=== PATIENT | male | born 1975 | race African-American/Black ===

== ENCOUNTER 2018-11-01 19:34 | Emergency (ER) | payer MEDICAID ==
--- NOTE | 2018-11-01 20:08 | ER Document Report ---
ED Medical Screen (RME) - General Chief Complaint: High Blood Sugar Stated Complaint: BLOOD SUGAR PROBLEM Time Seen by Provider: 11/01/18 20:02 Notes: 43-year-old male patient with lung cancer was recently put on Decadron 4 mg 3 times daily along with Augmentin. He has been on prednisone off and on for this past year. He is here today because his blood sugars are high. He states he was not told that the Decadron dosing would make his blood sugars go up. I have greeted and performed a rapid initial assessment of this patient. A comprehensive ED assessment and evaluation of the patient, analysis of test results and completion of the medical decision making process will be conducted by additional ED providers. TRAVEL OUTSIDE OF THE [place] IN LAST 30 DAYS: No - Related Data Allergies/Adverse Reactions: No Known Allergies Allergy (Verified 11/01/18 20:01) Past Medical History - Social History Frequency of alcohol use: None Drug Abuse: None - Past Medical History Cardiac Medical History: Reports: Hx Hypertension Endocrine Medical History: Reports: Hx Diabetes Mellitus Type 1, Hx Diabetes Mellitus Type 2 Renal/ Medical History: Denies: Hx Peritoneal Dialysis Past Surgical History: Reports: Hx Appendectomy, Hx Orthopedic Surgery - right ankle Physical Exam - Vital signs Vitals: Temp Pulse Resp BP Pulse Ox 98.3 F 88 16 140/92 H 97 11/01/18 19:49 11/01/18 19:49 11/01/18 19:49 11/01/18 19:49 11/01/18 19:49 Course - Vital Signs Vital signs: Temp Pulse Resp BP Pulse Ox 98.3 F 88 16 140/92 H 97 11/01/18 19:49 11/01/18 19:54 11/01/18 19:49 11/01/18 19:49 11/01/18 19:49
[2018-11-01 20:43] LABS: ABSOLUTE LYMPHOCYTES (AUTO) 0.6 10^3/uL (0.5-4.7); ABSOLUTE MONOCYTES (AUTO) 0.5 10^3/uL (0.1-1.4); ABSOLUTE NEUT (AUTO) 8.9 10^3/uL (1.7-8.2); BASOPHILS % (AUTO) 0.1 % (0-2); HEMATOCRIT 42.3 % (37.9-51.0); HEMOGLOBIN 14.6 g/dL (13.5-17.0); LYMPHOCYTES % (AUTO) 5.7 % (13-45); MEAN CORPUSCULAR HGB CONC 34.4 g/dL (32.0-36.0); MEAN CORPUSCULAR VOLUME 93 fl (80-97); PLATELET COUNT 432 10^3/uL (150-450); RED BLOOD COUNT 4.55 10^6/uL (4.35-5.55); RED CELL DISTRIBUTION WIDTH 14.1 % (11.5-14.0); SEGMENTED NEUTROPHILS % (AUTO) 89.2 % (42-78); TOTAL CELLS COUNTED % (AUTO) 100 %
[2018-11-01 20:47] LABS: APPEARANCE,URINE CLEAR; BILIRUBIN,URINE NEGATIVE (NEGATIVE); COLOR,URINE YELLOW; GLUCOSE, URINE >=500 mg/dL (NEGATIVE); KETONES,URINE TRACE mg/dL (NEGATIVE); LEUKOCYTE ESTERASE,URINE NEGATIVE (NEGATIVE); NITRITE,URINE NEGATIVE (NEGATIVE); PROTEIN,URINE NEGATIVE (NEGATIVE); URINE SPECIFIC GRAVITY 1.024; UROBILINOGEN,URINE NEGATIVE mg/dL (<2.0)
[2018-11-01 21:07] LABS: ALANINE AMINOTRANSFERASE < 6 U/L (21-72); ALBUMIN 4.6 g/dL (3.5-5.0); ALKALINE PHOSPHATASE 102 U/L (38-126); ANION GAP 12 (5-19); ASPARTATE AMINO TRANSFERASE 32 U/L (17-59); BILIRUBIN,DIRECT 0.5 mg/dL (0.0-0.4); BILIRUBIN,TOTAL 0.9 mg/dL (0.2-1.3); BLOOD UREA NITROGEN 25 mg/dL (7-20); CALCIUM 9.9 mg/dL (8.4-10.2); CARBON DIOXIDE 30 mmol/L (22-30); CHLORIDE 90 mmol/L (98-107); POTASSIUM 4.8 mmol/L (3.6-5.0); SODIUM 131.9 mmol/L (137-145); TOTAL PROTEIN 8.3 g/dL (6.3-8.2)
[2018-11-01 21:16] LABS: GLUCOSE 402 mg/dL (75-110)
[2018-11-01] MEDS ORDERED: INSULIN REG, HUMAN 100 UNIT/ML 3 ML VIAL (PYX) SUBCUT ONE (21:16)
[2018-11-01] MEDS ORDERED: NORMAL SALINE 1000 ML 1,000 ML IV ONE (21:16)
--- NOTE | 2018-11-01 23:47 | ER Document Report ---
ED Blood Sugar Problem - General Chief Complaint: High Blood Sugar Stated Complaint: BLOOD SUGAR PROBLEM Time Seen by Provider: 11/01/18 20:02 Notes: Patient is a 43-year-old male that comes to the emergency department for chief complaint of elevated blood sugar. He states that he checked at home, found it was over 300, became concerned and decided to come in and be evaluated. He denies dizziness, nausea, vomiting, abdominal pain, chest pain, fever, or any other complaints. He states that he is taking dexamethasone 4 mg 3 times a day, he has a diagnosis of lung cancer, he is on chemotherapy, he follows with Oncologist Dr. Batista. Patient does have a history of insulin-dependent diabetes. He states that he was seen about 2 days ago, had his Lantus increased from 15 units to 24 units daily. Patient states that he had initially had trouble with his appetite and this is why he was placed on the steroids. TRAVEL OUTSIDE OF THE [place] IN LAST 30 DAYS: No - Related Data Allergies/Adverse Reactions: No Known Allergies Allergy (Verified 11/01/18 20:01) Past Medical History - General Information source: Patient - Social History Smoking Status: Current Every Day Smoker Frequency of alcohol use: None Drug Abuse: None Lives with: Family Family History: Reviewed & Not Pertinent Patient has suicidal ideation: No Patient has homicidal ideation: No - Past Medical History Cardiac Medical History: Reports: Hx Hypertension Endocrine Medical History: Reports: Hx Diabetes Mellitus Type 2 Renal/ Medical History: Denies: Hx Peritoneal Dialysis Past Surgical History: Reports: Hx Appendectomy, Hx Orthopedic Surgery - right ankle - Immunizations Immunizations up to date: Yes Hx Diphtheria, Pertussis, Tetanus Vaccination: Yes Review of Systems - Review of Systems Constitutional: No symptoms reported EENT: No symptoms reported Cardiovascular: No symptoms reported Respiratory: No symptoms reported Gastrointestinal: No symptoms reported Genitourinary: No symptoms reported Male Genitourinary: No symptoms reported Musculoskeletal: No symptoms reported Skin: No symptoms reported Hematologic/Lymphatic: No symptoms reported Neurological/Psychological: No symptoms reported Physical Exam - Vital signs Vitals: Temp Pulse Resp BP Pulse Ox 98.3 F 88 16 140/92 H 97 11/01/18 19:49 11/01/18 19:49 11/01/18 19:49 11/01/18 19:49 11/01/18 19:49 - Notes Notes: GENERAL: Alert, interacts well. No acute distress. HEAD: Normocephalic, atraumatic. EYES: Pupils equal, round, and reactive to light. Extraocular movements intact. ENT: Oral mucosa dry, tongue midline. Oropharynx unremarkable. Airway patent. Nares patent, no nasal septal hematoma, TM's intact. NECK: Full range of motion. Supple. Trachea midline. LUNGS: Clear to auscultation bilaterally, no wheezes, rales, or rhonchi. No respiratory distress. HEART: Regular rate and rhythm. No murmur ABDOMEN: Soft, non-tender. Non-distended. Bowel sounds present in all 4 quadrants. GENITOURINARY: Deferred EXTREMITIES: Moves all 4 extremities spontaneously. No edema, normal radial and dorsalis pedis pulses bilaterally. No cyanosis. BACK: no cervical, thoracic, lumbar midline tenderness. No saddle anesthesia, normal distal neurovascular exam. NEUROLOGICAL: Alert and oriented x3. Normal speech. [cranial nerves II through XII grossly intact]. PSYCH: Normal affect, normal mood. SKIN: Warm, dry, normal turgor. No rashes or lesions noted. Course - Re-evaluation Re-evalutation: Patient's glucose is 400, bicarbonate unremarkable, anion gap unremarkable, mild hyponatremia, slightly elevated BUN, elevated specific gravity in the urine. Vital signs unremarkable. Remaining workup unremarkable. Patient treated with IV fluids, insulin. To this glucose significantly im proved. Discussed different options with patient. Patient states he is trying to avoid getting on a sliding scale, he states that he has an appointment on Saturday that he supposed to follow-up with, he states that he has decided he is going to stop taking the dexamethasone. He states that he was offered to stop taking the medication previously but now is having more trouble with his blood sugar. No additional recommendations at this time. Discussed expectations, follow-up, and return precautions. Patient states understanding and agreement. - Vital Signs Vital signs: Temp Pulse Resp BP Pulse Ox 98.3 F 88 17 128/85 H 96 11/01/18 19:49 11/01/18 19:54 11/02/18 00:01 11/02/18 00:01 11/02/18 00:01 - Laboratory Result Diagrams: 11/01/18 20:27 11/01/18 20:27 Laboratory results interpreted by me: 11/01/18 11/01/18 11/01/18 20:05 20:27 20:27 RDW 14.1 H Seg Neutrophils % 89.2 H Lymphocytes % 5.7 L Absolute Neutrophils 8.9 H Sodium 131.9 L Chloride 90 L BUN 25 H Glucose 402 H* POC Glucose 378 H Hemoglobin A1c % Direct Bilirubin 0.5 H ALT < 6 L Total Protein 8.3 H Urine Glucose (UA) Urine Ketones 11/01/18 11/01/18 11/01/18 20:27 20:27 23:07 RDW Seg Neutrophils % Lymphocytes % Absolute Neutrophils Sodium Chloride BUN Glucose POC Glucose 289 H Hemoglobin A1c % 10.0 H Direct Bilirubin ALT Total Protein Urine Glucose (UA) >=500 H Urine Ketones TRACE H 11/02/18 00:25 RDW Seg Neutrophils % Lymphocytes % Absolute Neutrophils Sodium Chloride BUN Glucose POC Glucose 262 H Hemoglobin A1c % Direct Bilirubin ALT Total Protein Urine Glucose (UA) Urine Ketones Discharge - Discharge Clinical Impression: Hyperglycemia, Dehydration Condition: Stable Disposition: HOME, SELF-CARE Additional Instructions: You have been treated for elevated blood sugars and dehydration today. No additional concerning findings were noted at this time. Your elevated blood sugars are probably related to the dexamethasone. Recommendation is to continue your new dose of 24 units of Lantus, avoid carbohydrates and sugary foods, and be seen on Saturday for close follow-up for additional management of your blood sugars and medications. Return if you worsen including vomiting, dizziness, fever, or any other co ncerning or worsening symptoms.
[2018-11-02 00:28] VITALS: BP 128/85
== END 2018-11-02 00:30 | disposition home or self-care (01) ==
LOC: ER 19:34
DX: E11.65 Type 2 diabetes mellitus with hyperglycemia (principal); Z79.4 Long term (current) use of insulin; E87.1 Hypo-osmolality and hyponatremia; E86.0 Dehydration; C34.90 Malignant neoplasm of unspecified part of unspecified bronchus or lung; Z79.899 Other long term (current) drug therapy; Z79.52 Long term (current) use of systemic steroids; I10 Essential (primary) hypertension; F17.200 Nicotine dependence, unspecified, uncomplicated
CPT/HCPCS: 99284; 36415; 82962; 83735; 85025; 80053; 81001; 83036; J1815; J7030

== ENCOUNTER 2019-04-19 15:57 | Inpatient (IN) | payer MEDICAID ==
[2019-04-19 16:20] LABS: HEMOGLOBIN 9.9 g/dL (13.5-17.0); MEAN CORPUSCULAR HEMOGLOBIN 32.1 pg (27.0-33.4); MEAN CORPUSCULAR HGB CONC 34.2 g/dL (32.0-36.0); MEAN CORPUSCULAR VOLUME 94 fl (80-97); PLATELET COUNT 580 10^3/uL (150-450); RED BLOOD COUNT 3.09 10^6/uL (4.35-5.55); RED CELL DISTRIBUTION WIDTH 18.5 % (11.5-14.0); WHITE BLOOD COUNT 8.8 10^3/uL (4.0-10.5)
[2019-04-19 16:25] LABS: INTERNATIONAL RATION (INR) 1.14; PROTHROMBIN TIME 14.7 SEC (11.4-15.4)
[2019-04-19] MEDS ORDERED: NORMAL SALINE 1000 ML 1,000 ML IV ONE ×2 (16:31→19:41)
[2019-04-19] MEDS ORDERED: ONDANSETRON HCL INJ/PF 4 MG/2 ML SDV IV ONE (16:36)
--- NOTE | 2019-04-19 16:36 | ER Document Report ---
ED General - General Chief Complaint: Nausea/Vomiting/Diarrhea Stated Complaint: NAUSEA Time Seen by Provider: 04/19/19 16:09 TRAVEL OUTSIDE OF THE [place] IN LAST 30 DAYS: No - HPI Notes: Patient is a 44-year-old male that presents to the emergency department for chief complaint of diarrhea. Patient reports diarrhea daily for the last 2 days. He reports associated crampy abdominal pain that is diffuse and intermittent. The abdominal pain seems relieved after having a bowel movement. He denies any black or bloody stools. He reports nausea with no vomiting. He is currently undergoing chemotherapy for metastatic lung cancer and reports his last treatment was 2 days ago. Patient denies known fevers, chills, diaphoresis. He does report hemoptysis that is streaky red mixed with mucus and not changed from his baseline hemoptysis. He denies increasing shortness of breath and cough. He is currently still smoking daily. Past Medical History: Metastatic lung cancer, diabetes, hypertension Past Surgical History: Posterior scalp tumor resection Social History: Daily tobacco. Denies drug and alcohol use Family History: Reviewed and noncontributory for presenting illness Allergies: Reviewed, see documented allergy list. REVIEW OF SYSTEMS: CONSTITUTIONAL : No fever No chills No diaphoresis No recent illness EENT: No vision changes No congestion No sore throat CARDIOVASCULAR: No chest pain No palpitations RESPIRATORY: No shortness of breath cough No difficulty breathing GASTROINTESTINAL: abdominal pain nausea No vomiting diarrhea GENITOURINARY: No dysuria No hematuria No difficulty urinating MUSCULOSKELETAL: No back pain No leg pain No arm pain SKIN: No rashes No lesions LYMPHATIC: No swollen, enlarged glands. NEUROLOGICAL: No lightheadedness No headache No weakness No paresthesias PSYCHIATRIC: No anxiety No depression PHYSICAL EXAMINATION: Vital signs reviewed, nursing noted reviewed. GENERAL: Well-appearing, well-nourished and in no acute distress. HEAD: Atraumatic, normocephalic. EYES: Eyes appear normal, extraocular movements intact, sclera anicteric, conjunctiva are normal. ENT: nares patent, oropharynx clear without exudates. Dry mucous membranes. NECK: Normal range of motion, supple without lymphadenopathy LUNGS: Breath sounds diminished to auscultation bilaterally and equal. No wheezes rales or rhonchi. Coarse cough HEART: Tachycardic rate and regular rhythm without murmurs ABDOMEN: Soft, nontender. No rebound, guarding, or rigidity. No masses appreciated. EXTREMITIES: Nontender, good range of motion, no pitting or edema. NEUROLOGICAL: No focal neurological deficits. Moves all extremities spontaneously Motor and sensory grossly intact on exam. PSYCH: Normal mood, normal affect. SKIN: Warm, Dry, normal turgor, no rashes or lesions noted on exposed skin - Related Data Allergies/Adverse Reactions: No Known Allergies Allergy (Verified 11/01/18 20:01) Past Medical History - Social History Smoking Status: Current Every Day Smoker Family History: Reviewed & Not Pertinent - Past Medical History Cardiac Medical History: Reports: Hx Hypertension Endocrine Medical History: Reports: Hx Diabetes Mellitus Type 1, Hx Diabetes Mellitus Type 2 Renal/ Medical History: Denies: Hx Peritoneal Dialysis Past Surgical History: Reports: Hx Appendectomy, Hx Orthopedic Surgery - right ankle - Immunizations Immunizations up to date: Yes Hx Diphtheria, Pertussis, Tetanus Vaccination: Yes Physical Exam - Vital signs Vitals: Pulse Ox 100 04/19/19 16:10 Course - Re-evaluation Re-evalutation: 04/19/19 16:35 Vitals reviewed. Nursing notes reviewed. Patient appears dehydrated and is tachycardic. His blood pressure is stable. He will be started on IV fluids and Zofran for symptomatic management. Patient placed on telemetry monitoring. 04/19/19 19:52 Patient's lab work shows hypokalemia which was replaced orally. He has extensive metastatic cancer on his CT imaging. Patient now tells me that he has been off his Xarelto for the last 4 or 5 days because he has been having hemoptysis. His hemoptysis is streaky and not massive. Patient has a new acute pulmonary embolism and reports no history of PE in the past to me. For this reason he will be started on heparin. The heparin will be able to be turned off if his hemoptysis increases. Patient also has pneumonia on CT scan and will be started on broad-spectrum antibiotics. Blood cultures have been obtained. His lactic acid is normal and blood pressure has remained stable. Patient's abdominal CT scan is consistent with enterocolitis as well as changes related to his cancer. Patient reports some improvement of symptoms on reevaluation. He will be admitted to the hospital for further care. His case was discussed with Dr. Pryor who accepts admission. Laboratory 07/04/19/19 04/19/19 15:35 15:35 15:35 WBC 8.8 RBC 3.09 L Hgb 9.9 L Hct 29.0 L MCV 94 MCH 32.1 MCHC 34.2 RDW 18.5 H Plt Count 580 H Total Counted 100 Seg Neutrophils % Not Reportable Seg Neuts % (Manual) 93 H Lymphocytes % Not Reportable Lymphocytes % (Manual) 6 L Monocytes % Not Reportable Monocytes % (Manual) 1 L Eosinophils % Not Reportable Eosinophils % (Manual) 0 Basophils % Not Reportable Basophils % (Manual) 0 Absolute Neutrophils Not Reportable Abs Neuts (Manual) 8.2 Absolute Lymphocytes Not Reportable Abs Lymphs (Manual) 0.5 Absolute Monocytes Not Reportable Abs Monocytes (Manual) 0.1 Absolute Eosinophils Not Reportable Absolute Eos (Manual) 0.0 Absolute Basophils Not Reportable Abs Basophils (Manual) 0.0 Platelet Comment INCREASED Poikilocytosis SLIGHT Anisocytosis 2+ Tear Drop Cells SLIGHT Ovalocytes SLIGHT PT 14.7 INR 1.14 VBG pH VBG pCO2 VBG HCO3 VBG Base Excess Sodium 135.0 L Potassium 2.8 L* Chloride 94 L Carbon Dioxide 25 Anion Gap 16 BUN 19 Creatinine 1.10 Est GFR ( Amer) > 60 Est GFR (Non-Af Amer) > 60 Glucose 168 H POC Glucose Lactic Acid Calcium 9.6 Total Bilirubin 0.8 Direct Bilirubin 0.4 Neonat Total Bilirubin Not Reportable Neonat Direct Bilirubin Not Reportable Neonat Indirect Bili Not Reportable AST 14 L ALT < 6 L Alkaline Phosphatase 112 Total Protein 7.3 Albumin 3.8 Lipase 214.2 04/19/19 04/19/19 04/19/19 16:27 16:27 16:35 WBC RBC Hgb Hct MCV MCH MCHC RDW Plt Count Total Counted Seg Neutrophils % Seg Neuts % (Manual) Lymphocytes % Lymphocytes % (Manual) Monocytes % Monocytes % (Manual) Eosinophils % Eosinophils % (Manual) Basophils % Basophils % (Manual) Absolute Neutrophils Abs Neuts (Manual) Absolute Lymphocytes Abs Lymphs (Manual) Absolute Monocytes Abs Monocytes (Manual) Absolute Eosinophils Absolute Eos (Manual) Absolute Basophils Abs Basophils (Manual) Platelet Comment Poikilocytosis Anisocytosis Tear Drop Cells Ovalocytes PT INR VBG pH 7.47 H VBG pCO2 34.7 L VBG HCO3 24.4 VBG Base Excess 1.3 Sodium Potassium Chloride Carbon Dioxide Anion Gap BUN Creatinine Est GFR ( Amer) Est GFR (Non-Af Amer) Glucose POC Glucose 165 H Lactic Acid 1.1 Calcium Total Bilirubin Direct Bilirubin Neonat Total Bilirubin Neonat Direct Bilirubin Neonat Indirect Bili AST ALT Alkaline Phosphatase Total Protein Albumin Lipase Chest X-Ray 04/19/19 16:10 IMPRESSION: Diffuse airspace opacity at the right lung with masslike consolidation at the right upper lobe and mediastinal shift to the right. Left lung nodules. Small right pleural effusion. CT thorax can help in further evaluation. Chest/Abdomen CTA 04/19/19 17:49 IMPRESSION: 1. Acute pulmonary embolus at the right main pulmonary artery. 2. Masslike consolidation at the right upper lobe extending into the right hilum and mediastinum, probably corresponding to patient's known malignancy. 3. Consolidation with air bronchograms at the right lower lobe, may be secondary to progression of malignancy versus pneumonia. 4. Nodular densities at the trachea and right mainstem bronchus, endobronchial lesions cannot be excluded. 5. Moderate right pleural effusion. 6. Multiple bilateral pulmonary nodules and mediastinal adenopathy, most consistent with metastatic disease. 7. Small pericardial effusion. 8. Diffuse chest wall edema. Bilateral gynecomastia. 9. Osseous metastatic lesion at the posterior aspect of T10 vertebral body. Contrast-enhanced MRI can help to evaluate for extension into the spinal canal. Abdomen/Pelvis CT 04/19/19 17:57 IMPRESSION: 1. Air-fluid levels throughout the small bowel, colon and at the rectum, may be seen with enterocolitis. 2. Mild colonic diverticulosis. 3. Osseous metastasis at T10 vertebral body. 4. 1.1 cm sclerotic lesion at the left acetabulum, indeterminate. - Vital Signs Vital signs: Temp Pulse Resp BP Pulse Ox 100.1 F 28 H 128/93 H 100 04/19/19 17:50 04/19/19 16:25 04/19/19 16:25 04/19/19 16:25 - Laboratory Result Diagrams: 04/19/19 15:35 04/19/19 15:35 Laboratory results interpreted by me: 04/19/19 04/19/19 04/19/19 15:35 15:35 16:27 RBC 3.09 L Hgb 9.9 L Hct 29.0 L RDW 18.5 H Plt Count 580 H Seg Neuts % (Manual) 93 H Lymphocytes % (Manual) 6 L Monocytes % (Manual) 1 L VBG pH 7.47 H VBG pCO2 34.7 L Sodium 135.0 L Potassium 2.8 L* Chloride 94 L Glucose 168 H POC Glucose AST 14 L ALT < 6 L 04/19/19 16:35 RBC Hgb Hct RDW Plt Count Seg Neuts % (Manual) Lymphocytes % (Manual) Monocytes % (Manual) VBG pH VBG pCO2 Sodium Potassium Chloride Glucose POC Glucose 165 H AST ALT - EKG Interpretation by Me Additional EKG results interpreted by me: 04/19/19 16:35 Interpreted by myself 1628: Sinus tachycardia, rate 129, normal axis, no ectopy, no STEMI Critical Care Note - Critical Care Note Total time excluding time spent on procedures (mins): 40 Comments: Critical care time 40 exclusive from separate billable procedures for a patient requiring complex medical decision making, and high potential for clinical deterioration. Time spent obtaining history from patient or surrogate, discussions with consultants, development of treatment plan with patient or surrogate, evaluation of patient's response to treatment, examination of patient, ordering and performing treatments and interventions, ordering and review of laboratory studies, re-evaluation of patient's condition, ordering and review of radiographic studies and review of old charts Discharge - Discharge Clinical Impression: Hypokalemia, Enterocolitis Pulmonary embolism Qualifiers: Pulmonary embolism type: other Chronicity: acute Acute cor pulmonale presence: without acute cor pulmonale Qualified Code(s): I26.99 - Other pulmonary embolism without acute cor pulmonale Pneumonia Qualifiers: Pneumonia type: due to unspecified organism Laterality: bilateral Lung location: unspecified part of lung Qualified Code(s): J18.9 - Pneumonia, unspecified organism Sepsis Qualifiers: Sepsis type: sepsis due to unspecified organism Qualified Code(s): A41.9 - Sepsis, unspecified organism Condition: Fair Disposition: ADMITTED INPATIENT Admitting Provider: Konstantin (Hospitalist) Unit Admitted: [facility]
[2019-04-19 16:37] LABS: ALANINE AMINOTRANSFERASE < 6 U/L (21-72); ALBUMIN 3.8 g/dL (3.5-5.0); ALKALINE PHOSPHATASE 112 U/L (38-126); ANION GAP 16 (5-19); ASPARTATE AMINO TRANSFERASE 14 U/L (17-59); BILIRUBIN,DIRECT 0.4 mg/dL (0.0-0.4); BILIRUBIN,TOTAL 0.8 mg/dL (0.2-1.3); BLOOD UREA NITROGEN 19 mg/dL (7-20); CALCIUM 9.6 mg/dL (8.4-10.2); CARBON DIOXIDE 25 mmol/L (22-30); CHLORIDE 94 mmol/L (98-107); GLUCOSE 168 mg/dL (75-110); TOTAL PROTEIN 7.3 g/dL (6.3-8.2)
[2019-04-19 16:39] LABS: POTASSIUM 2.8 mmol/L (3.6-5.0)
[2019-04-19 16:48] LABS: VENOUS BLOOD BASE EXCESS 1.3 mmol/L; VENOUS BLOOD HCO3 24.4 mmol/L (20-32); VENOUS BLOOD PCO2 34.7 mmHg (35-63); VENOUS BLOOD PH 7.47 (7.30-7.42)
[2019-04-19] MEDS ORDERED: POTASSIUM CHLORIDE 10 MEQ CAPSULE.ER PO ONE (16:53)
[2019-04-19 16:57] LABS: ABSOLUTE LYMPHOCYTES# (MANUAL) 0.5 10^3/uL (0.5-4.7); ABSOLUTE MONOCYTES # (MANUAL) 0.1 10^3/uL (0.1-1.4); ANISOCYTOSIS 2+; BASOPHILS % (MANUAL) 0 % (0-2); EOSINOPHILS % (MANUAL) 0 % (0-6); LYMPHOCYTES % (MANUAL) 6 % (13-45); MONOCYTES % (MANUAL) 1 % (3-13); OVALOCYTES SLIGHT; PLATELET COMMENT INCREASED; POIKILOCYTOSIS SLIGHT; SEGMENTED NEUTROPHILS % (MAN) 93 % (42-78); TEAR DROP CELLS SLIGHT; TOTAL CELLS COUNTED 100
[2019-04-19] MEDS ORDERED: POTASSIUM CHLORIDE 20 MEQ PACKET PO ONE (17:04)
--- NOTE | 2019-04-19 17:13 | RADIOLOGY REPORT (SQ) ---
EXAM DESCRIPTION: CHEST SINGLE VIEW COMPLETED DATE/TIME: 04/19/2019 4:37 pm REASON FOR STUDY: tachycardia, vomiting COMPARISON: None. EXAM PARAMETERS: NUMBER OF VIEWS: One view. TECHNIQUE: Single frontal radiographic view of the chest acquired. RADIATION DOSE: NA LIMITATIONS: None. FINDINGS: LUNGS AND PLEURA: There is diffuse airspace opacity at the right lung with masslike consol idation at the right upper lobe. There is a small right pleural effusion. Several nodules are noted at the left lung, the largest at the left midlung is measuring 2.4 cm. No pneumothorax. MEDIASTINUM AND HILAR STRUCTURES: There is mediastinal shift to the right. HEART AND VASCULAR STRUCTURES: The heart does not appear enlarged. No overt vascular congestion. BONES: No acute findings. HARDWARE: None in the chest. IMPRESSION: Diffuse airspace opacity at the right lung with masslike consolidation at the right uppe r lobe and mediastinal shift to the right. Left lung nodules. Small right pleural effusion. CT tho rax can help in further evaluation. TECHNICAL DOCUMENTATION: JOB ID: [id number] [id number] 2010 [employer]- All Rights Reserved Reading location - IP/workstation name: [email or web address]
[2019-04-19] MEDS ORDERED: DICYCLOMINE HCL INJ 20 MG/2 ML AMPULE IM ONE (17:54)
[2019-04-19] MEDS ORDERED: DICYCLOMINE HCL 20 MG TABLET PO ONE (17:56)
[2019-04-19] MEDS ORDERED: ACETAMINOPHEN 325 MG TABLET PO ONE (17:56)
--- NOTE | 2019-04-19 19:01 | EKG REPORT ---
SEVERITY:- OTHERWISE NORMAL ECG - SINUS TACHYCARDIA [Now Present] SIGNIFICANT RHYTHM CHANGES [Now Absent] ST ELEV, PROBABLE NORMAL EARLY REPOL PATTERN [Now Absent] SINUS RHYTHM : Confirmed by: Minna Doyle MD 19-Apr-2019 19:00:32
[2019-04-19] MEDS ORDERED: HEPARIN SOD (PORCINE) 1,000 UNIT/ML 10 ML VIAL IV ONE (19:07)
[2019-04-19] MEDS ORDERED: CEFTRIAXONE INJ 1000 MG VIAL IV ONE (19:07)
[2019-04-19] MEDS ORDERED: HEPARIN SODIUM,PORCINE/D5W 25,000 UNIT/250 ML RTUINJ IV PRN ×2 (19:07→21:14)
[2019-04-19] MEDS ORDERED: AZITHROMYCIN INJ 500 MG VIAL IV ONE ×2 (19:07→19:51)
--- NOTE | 2019-04-19 19:29 | RADIOLOGY REPORT (SQ) ---
EXAM DESCRIPTION: CTA CHEST COMPLETED DATE/TIME: 04/19/2019 6:27 pm REASON FOR STUDY: Abdominal pain, fever. Hemoptysis. History of metastatic lung cancer. COMPARISON: Chest x-ray 04/19/2019. TECHNIQUE: CT scan of the chest performed using helical scanning technique with dynamic intravenous contrast injection. Images reviewed with lung, soft tissue and bone windows. Reconstructed coronal and sagittal MPR images reviewed. Additional 3 dimensional post-processing performed to develop Maximal Intensity Projection images (CT P). All images stored on PACS. All CT scanners at this facility use dose modulation, iterative reconstruction, and/or weight based d osing when appropriate to reduce radiation dose to as low as reasonably achievable (ALARA). [facility]: Dose Right [facility]: CareDose [facility]: Dose Right [facility]: Teradose 4D [facility]: [employer] CONTRAST TYPE AND DOSE: contrast/concentration: Isovue 350.00 mg/ml; Total Contrast Delivered: 56.0 ml; Total Saline Delivered: 80.0 ml Contrast bolus optimized for the pulmonary arteries. Not diagnostic for the aorta. RENAL FUNCTION: Creatinine 1.10 RADIATION DOSE: . LIMITATIONS: None. FINDINGS: LUNGS AND PLEURA: There is a moderate right pleural effusion. There is a masslike consoli dation at the right upper lobe extending into the right hilar region and mediastinum. Consolidation with air bronchograms at the right lower lobe. Multiple bilateral pulmonary nodules are noted. A re presentative nodule at the left upper lobe is measuring 2.1 cm. Nodular densities are noted at the t rachea and right mainstem bronchus. AORTA AND GREAT VESSELS: No thoracic aortic aneurysm. HEART: Small pericardial effusion. PULMONARY ARTERIES: There is a filling defect at the right main pulmonary artery. HILAR AND MEDIASTINAL STRUCTURES: Subcarinal adenopathy measuring 2.3 cm in short axis. HARDWARE: None in the chest. UPPER ABDOMEN: See separate report of the CT of the abdomen. BONES: There is a lucent lesion with soft tissue density and cortical destruction along the left side of the posterior aspect of T10 vertebral body, most consistent with an osseous metastatic lesion. 3D MIPS: Confirm above findings. There is diffuse chest wall edema. There is bilateral gynecomastia. IMPRESSION: 1. Acute pulmonary embolus at the right main pulmonary artery. 2. Masslike consolidation at the right upper lobe extending into the right hilum and mediastinum, pro bably corresponding to patient's known malignancy. 3. Consolidation with air bronchograms at the right lower lobe, may be secondary to progression of ma lignancy versus pneumonia. 4. Nodular densities at the trachea and right mainstem bronchus, endobronchial lesions cannot be excl uded. 5. Moderate right pleural effusion. 6. Multiple bilateral pulmonary nodules and mediastinal adenopathy, most consistent with metastatic d isease. 7. Small pericardial effusion. 8. Diffuse chest wall edema. Bilateral gynecomastia. 9. Osseous metastatic lesion at the posterior aspect of T10 vertebral body. Contrast-enhanced MRI c an help to evaluate for extension into the spinal canal. COMMENT: Pertinent findings on the imaging study reported as a CRITICAL RESULT to DERICK Ocampo 9:10 hrs on 04/19/2019. Category of Critical Result: Acute pulmonary embolus. Quality ID # [id number]: Final reports with documentation of one or more dose reduction techniques (e.g., Au tomated exposure control, adjustment of the mA and/or kV according to patient size, use of iterative reconstruction technique) TECHNICAL DOCUMENTATION: JOB ID: [id number] [place]-[id number] 2010 [employer]- All Rights Reserved Reading location - IP/workstation name: [email or web address]
--- NOTE | 2019-04-19 19:40 | RADIOLOGY REPORT (SQ) ---
EXAM DESCRIPTION: CT ABD/PELVIS WITH IV ONLY COMPLETED DATE/TIME: 04/19/2019 6:28 pm REASON FOR STUDY: abdominal pain, fever . History of metastatic lung cancer. COMPARISON: CT angiogram chest 04/19/2019. TECHNIQUE: CT scan of the abdomen and pelvis performed using helical scanning technique with dynamic intravenous contrast injection. No oral contrast. Images reviewed with lung, soft tissue, and bone windows. Reconstructed coronal and sagittal MPR images reviewed. Delayed images for evaluation of the urinary system also acquired. All images stored on PACS. All CT scanners at this facility use dose modulation, iterative reconstruction, and/or weight based d osing when appropriate to reduce radiation dose to as low as reasonably achievable (ALARA). [facility]: Dose Right [facility]: CareDose [facility]: Dose Right [facility]: Teradose 4D [facility]: Atlas Apps CONTRAST TYPE AND DOSE: 56 mL Omnipaque 350- low osmolar. RENAL FUNCTION: Creatinine 1.10 RADIATION DOSE: CT Rad equipment meets quality standard of care and radiation dose reduction techniq ues were employed. CTDIvol: 3.3 - 16.5 mGy. DLP: 1820 mGy-cm.. LIMITATIONS: None. FINDINGS: LOWER CHEST: See separate report of the CT of the chest. LIVER: Normal size. No masses. No dilated ducts. SPLEEN: Normal size. No focal lesions. PANCREAS: No masses. No significant calcifications. No adjacent inflammation or peripancreatic fluid collections. Pancreatic duct not dilated. GALLBLADDER: Contracted. ADRENAL GLANDS: No significant masses or asymmetry. RIGHT KIDNEY AND URETER: No solid masses. No significant calcifications. No hydronephrosis or hyd roureter. LEFT KIDNEY AND URETER: No solid masses. No significant calcifications. No hydronephrosis or hydr oureter. AORTA AND VESSELS: IVC filter is noted. No abdominal aortic aneurysm. RETROPERITONEUM: No retroperitoneal adenopathy, hemorrhage or masses. BOWEL AND PERITONEAL CAVITY: The stomach is distended with an air-fluid level. Air-fluid levels are noted throughout the small bowel, colon and at the rectum. No free fluid or free air. Scattered col onic diverticula with no CT evidence for acute diverticulitis. APPENDIX: Not visualized. PELVIS: The urinary bladder is partially distended. No pelvic mass. No free fluid. ABDOMINAL WALL: There is a small fat containing umbilical hernia. BONES: There is a lucent lesion with adjacent soft tissue density and cortical destruction on the lef t side at the posterior aspect of T10 vertebral body, most consistent with osseous metastasis. There is a 1.1 cm sclerotic lesion at the left acetabulum. Mild multilevel degenerative changes are noted at the spine. IMPRESSION: 1. Air-fluid levels throughout the small bowel, colon and at the rectum, may be seen wit h enterocolitis. 2. Mild colonic diverticulosis. 3. Osseous metastasis at T10 vertebral body. 4. 1.1 cm sclerotic lesion at the left acetabulum, indeterminate. TECHNICAL DOCUMENTATION: JOB ID: [id number] SC-64 Quality ID # [id number]: Final reports with documentation of one or more dose reduction techniques (e.g., Au tomated exposure control, adjustment of the mA and/or kV according to patient size, use of iterative reconstruction technique) 2010 [employer]- All Rights Reserved Reading location - IP/workstation name: [email or web address]
[2019-04-19] MEDS ORDERED: VANCOMYCIN HCL INJ 1000 MG VIAL IV ONE (19:51)
[2019-04-19] MEDS ORDERED: PIPERACILLIN/TAZOBACTAM 3.375 GM VIAL IV ONE (19:51)
[2019-04-19 19:53] LABS: INTERNATIONAL RATION (INR) 1.17
[2019-04-19 19:54] LABS: PARTIAL THROMBOPLASTIN TIME 32.6 SEC (23.5-35.8)
[2019-04-19] MEDS ORDERED: NORMAL SALINE 1000 ML 1,000 ML IV PRN (19:56)
[2019-04-19] MEDS ORDERED: DEXTROSE 40% GEL 15 GM TUBE PO PRN ×2 (21:14)
[2019-04-19] MEDS ORDERED: DEXTROSE 50%-WATER 25 GM/50 ML DISP.SYRIN IV PRN ×2 (21:14)
[2019-04-19] MEDS ORDERED: GLUCAGON,HUMAN RECOMB 1 MG INJ IM PRN (21:14)
[2019-04-19] MEDS ORDERED: VANCOMYCIN HCL INJ 1000 MG VIAL IV SCH (21:15)
[2019-04-19] MEDS ORDERED: MORPHINE SULFATE 10 MG/ML INJ IV PRN ×4 (21:17→21:40)
[2019-04-19] MEDS ORDERED: NICOTINE 21 MG/24 HR PATCH.TD24 TD PRN (21:17)
[2019-04-19] MEDS ORDERED: MAG HYDROX/AL HYDROX/SIMETH SUSP 30 ML UDCUP PO PRN (21:17)
[2019-04-19] MEDS ORDERED: IBUPROFEN 800 MG TABLET PO PRN (21:17)
[2019-04-19] MEDS ORDERED: MAGNESIUM HYDROXIDE SUSP 30 ML UDCUP PO PRN (21:17)
[2019-04-19] MEDS ORDERED: ZOLPIDEM TARTRATE 5 MG TABLET PO PRN (21:25)
[2019-04-19] MEDS ORDERED: AZITHROMYCIN INJ 500 MG VIAL IV PRN (21:40)
[2019-04-19] MEDS ORDERED: AZITHROMYCIN 500 MG in DEXTROSE 5%-WATER 250 ML IV SCH (22:00)
[2019-04-19] MEDS ORDERED: HEPARIN SOD (PORCINE) 1,000 UNIT/ML 10 ML VIAL IV PRN (22:08)
[2019-04-19 22:27] LABS: FREE T3 2.54 pg/mL (2.77-5.27); FREE T4 (FREE THYROXINE) 1.65 ng/dL (0.78-2.19)
[2019-04-19] MEDS: POTASSI CL 20 MEQ/NS 1L 1,000 ML IV PRN (23:02)
--- NOTE | 2019-04-19 23:15 | PDOC H&P ---
History of Present Illness Admission Date/PCP: 04/19/19 20:02 No local PCP Patient complains of: Diarrhea History of Present Illness: WARREN MARIANO JR is a 44 year old male who presented to the emergency room with a 2-day history of diarrhea. He admits moderate to severe frequent watery d iarrhea for the last 2 days with associated intermittent diffuse moderate to severe abdominal cramping relieved in part by expelling a diarrhea stool. He admits further to the accompanying symptoms of nausea but denies other accompanying or associated symptoms. He further admits having lung cancer with known metastases. His last day of his most recent chemotherapy was 2 days ago. He admits prior similar episodes of diarrhea after prior rounds of chemotherapy, though not as severe as his present symptoms. His only further complaint is chronic mild streaky hemoptysis which has been present for months. He also relates that his oncologist discontinued his Xarelto 5 days ago, for unknown re asons. He denies identification of any additional aggravating or ameliorating factors for his diarrhea. In the emergency room he was found to have a normal white blood count, a normal lactic acid, a potassium of 2.8 and a mildly elevated temperature with an associated tachycardia. He was evaluated for his diarrhea with a CT of the abdomen and pelvis which was diagnostically consistent with acute enterocolitis. He also had a chest x-ray which showed a right upper lobe infiltrate which is most likely tumor and there was possible tumor or pneumonia in the right lower lung yanes. A CTA of the chest was obtained and showed a pulmonary embolus in his right pulmonary artery. Patient was subs equently admitted to the hospital for further evaluation and treatment. Past Medical History Cardiac Medical History: Reports: DVT, Hypertension Denies: Atrial Fibrillation, Coronary Artery Disease, Myocardial Infarction, Pulmonary Embolism Pulmonary Medical History: Reports: Bronchitis, Other - Metastatic pulmonary carcinoma Denies: Asthma, Chronic Obstructive Pulmonary Disease (COPD), Pneumonia, Respiratory Failure, Sleep Apnea EENT Medical History: Denies: Cataracts, Ears - Hearing aids Neurological Medical History: Denies: Hemorrhagic CVA, Ischemic CVA, Multiple Sclerosis, Seizures Endocrine Medical History: Reports: Diabetes Mellitus Type 2 Denies: Diabetes Mellitus Type 1, Hyperthyroidism, Hypothyroidism, Obesity Renal/ Medical History: Denies: Chronic Kidney Disease, Nephrolithiasis Malignancy Medical History: Reports: Lung Cancer GI Medical History: Denies: Cirrhosis, Crohn's Disease, Hepatitis, Ulcerative Colitis Musculoskeltal Medical History: Denies: Arthritis, Fibromyalgia, Gout Skin Medical History: Denies: Eczema, Psoriasis Psychiatric Medical History: Reports: Tobacco Dependency Denies: Alcohol Dependency, Substance Abuse Traumatic Medical History: Reports: None Hematology: Reports: Anemia - Chronic Denies: Bleeding Tendencies Infectious Medical History: Reports: None Past Surgical History Past Surgical History: Reports: Appendectomy, Orthopedic Surgery - right ankle, Other - Bronchoscopy and lung/tumor biopsies Social History Information Source: Patient Lives with: Spouse/Significant other, Friend Smoking Status: Current Every Day Smoker Frequency of Alcohol Use: None Hx Recreational Drug Use: No Drugs: None Hx Prescription Drug Abuse: No - Advance Directive Resuscitation Status: Full Code Surrogate healthcare decision maker:: Omid Ortiz Family History Family History: DM, Hypertension. denies: CAD, Malignancy Parental Family History Reviewed: Yes Children Family History Reviewed: No Sibling(s) Family History Reviewed.: Yes Medication/Allergy Home Medications: Sulfamethoxazole/Trimethoprim [Bactrim Ds Tablet] 2 each PO BID 7 Days tablet 11/15/14 Allergies/Adverse Reactions: No Known Allergies Allergy (Verified 11/01/18 20:01) Review of Systems Constitutional: ABSENT: chills, fever(s) Eyes: ABSENT: visual disturbances, other - Eye pain Ears: ABSENT: hearing changes, other - Ear pain Nose, Mouth, and Throat: ABSENT: mouth pain, sore throat Cardiovascular: ABSENT: chest pain, dyspnea on exertion, edema, orthropnea, palpitations Respiratory: PRESENT: as per HPI, cough, hemoptysis - Small amount of clear sputum with streaky hemoptysis present chronically, sputum. ABSENT: dyspnea Gastrointestinal: PRESENT: as per HPI, abdominal pain, diarrhea. ABSENT: constipation, dysphagia, hematemesis, hematochezia, melena, nausea, vomiting Genitourinary: ABSENT: dysuria, hematuria Musculoskeletal: ABSENT: back pain, joint swelling, muscle weakness Integumentary: ABSENT: pruritus, rash Neurological: ABSENT: confusion, convulsions, focal weakness, memory loss, syncope Psychiatric: ABSENT: anxiety, depression Endocrine: ABSENT: cold intolerance, heat intolerance Hematologic/Lymphatic: ABSENT: easy bleeding, easy bruising Physical Exam Vital Signs: Temp Pulse Resp BP Pulse Ox 100.1 F 28 H 128/93 H 100 04/19/19 17:50 04/19/19 16:25 04/19/19 16:25 04/19/19 16:25 Intake & Output 04/17/19 04/18/19 04/19/19 23:59 23:59 23:59 Intake Total 1000 Balance 1000 Weight 74.389 kg General appearance: PRESENT: no acute distress, cooperative Head exam: PRESENT: atraumatic, normocephalic Eye exam: PRESENT: conjunctiva pink. ABSENT: conjunctival injection, scleral icterus Ear exam: PRESENT: normal external ear exam. ABSENT: bleeding, drainage Mouth exam: PRESENT: dry mucosa, neck supple Neck exam: ABSENT: JVD, thyromegaly, tracheal deviation Respiratory exam: PRESENT: decreased breath sounds - Right upper lung yanes breath sounds essentially absent, rhonchi - Right lower lung yanes mild scattered rhonchi, symmetrical, unlabored. ABSENT: wheezes Cardiovascular exam: PRESENT: RRR. ABSENT: clicks, gallop, rubs Pulses: PRESENT: normal radial pulses, normal dorsalis pedis pul Vascular exam: ABSENT: normal capillary refill - Capillary refill delayed to greater than 3 seconds, pallor GI/Abdominal exam: PRESENT: hypoactive bowel sounds, soft, tenderness - Minimal generalized tenderness Rectal exam: PRESENT: deferred Extremities exam: ABSENT: joint swelling, pedal edema, tenderness Musculoskeletal exam: PRESENT: full ROM, normal inspection Neurological exam: PRESENT: alert, oriented to person, oriented to place, oriented to time, oriented to situation, CN II-XII grossly intact. ABSENT: motor sensory deficit Psychiatric exam: PRESENT: appropriate affect, normal mood Skin exam: PRESENT: dry, intact, warm, other - Decreased skin turgor noted.. ABSENT: jaundice, rash, urticaria Results Laboratory Results: 04/19/19 15:35 04/19/19 15:35 04/19/19 04/19/19 04/19/19 15:35 15:35 16:27 WBC 8.8 RBC 3.09 L Hgb 9.9 L Hct 29.0 L MCV 94 MCH 32.1 MCHC 34.2 RDW 18.5 H Plt Count 580 H Seg Neutrophils % Not Reportable Lymphocytes % Not Reportable Monocytes % Not Reportable Eosinophils % Not Reportable Basophils % Not Reportable Absolute Neutrophils Not Reportable Absolute Lymphocytes Not Reportable Absolute Monocytes Not Reportable Absolute Eosinophils Not Reportable Absolute Basophils Not Reportable VBG pH VBG pCO2 VBG HCO3 VBG Base Excess Sodium 135.0 L Potassium 2.8 L* Chloride 94 L Carbon Dioxide 25 Anion Gap 16 BUN 19 Creatinine 1.10 Est GFR ( Amer) > 60 Est GFR (Non-Af Amer) > 60 Glucose 168 H Lactic Acid 1.1 Calcium 9.6 Total Bilirubin 0.8 AST 14 L ALT < 6 L Alkaline Phosphatase 112 Total Protein 7.3 Albumin 3.8 Lipase 214.2 04/19/19 16:27 WBC RBC Hgb Hct MCV MCH MCHC RDW Plt Count Seg Neutrophils % Lymphocytes % Monocytes % Eosinophils % Basophils % Absolute Neutrophils Absolute Lymphocytes Absolute Monocytes Absolute Eosinophils Absolute Basophils VBG pH 7.47 H VBG pCO2 34.7 L VBG HCO3 24.4 VBG Base Excess 1.3 Sodium Potassium Chloride Carbon Dioxide Anion Gap BUN Creatinine Est GFR ( Amer) Est GFR (Non-Af Amer) Glucose Lactic Acid Calcium Total Bilirubin AST ALT Alkaline Phosphatase Total Protein Albumin Lipase Impressions: Chest X-Ray 04/19/19 16:10 IMPRESSION: Diffuse airspace opacity at the right lung with masslike consolidation at the right upper lobe and mediastinal shift to the right. Left lung nodules. Small right pleural effusion. CT thorax can help in further evaluation. Chest/Abdomen CTA 04/19/19 17:49 IMPRESSION: 1. Acute pulmonary embolus at the right main pulmonary artery. 2. Masslike consolidation at the right upper lobe extending into the right hilum and mediastinum, probably corresponding to patient's known malignancy. 3. Consolidation with air bronchograms at the right lower lobe, may be secondary to progression of malignancy versus pneumonia. 4. Nodular densities at the trachea and right mainstem bronchus, endobronchial lesions cannot be excluded. 5. Moderate right pleural effusion. 6. Multiple bilateral pulmonary nodules and mediastinal adenopathy, most consistent with metastatic disease. 7. Small pericardial effusion. 8. Diffuse chest wall edema. Bilateral gynecomastia. 9. Osseous metastatic lesion at the posterior aspect of T10 vertebral body. Contrast-enhanced MRI can help to evaluate for extension into the spinal canal. Abdomen/Pelvis CT 04/19/19 17:57 IMPRESSION: 1. Air-fluid levels throughout the small bowel, colon and at the rectum, may be seen with enterocolitis. 2. Mild colonic diverticulosis. 3. Osseous metastasis at T10 vertebral body. 4. 1.1 cm sclerotic lesion at the left acetabulum, indeterminate. Assessment and Plan - Diagnosis (1) Hypokalemia Is this a current diagnosis for this admission?: Yes Plan: Patient's potassium will be repleted with IV and oral potassium supplementation and frequent monitoring of his serum potassium level. He will be on a monitored unit during his hospital course. (2) Enterocolitis Is this a current diagnosis for this admission?: Yes Plan: Patient's enterocolitis to be treated symptomatically and the resultant dehydration will be treated with vigorous intravenous rehydration and electrolyte replacement. His metabolic profile will be monitored on a regular basis as well as a magnesium level. He will receive morphine sulfate 2 to 4 mg IV every 2 hours on a as needed basis for abdominal pain or cramping on a sliding scale basis. Stool cultures, C. difficile toxin and stool for white blood cells are pending. (3) Pulmonary embolism Qualifiers: Pulmonary embolism type: other Chronicity: unspecified Acute cor pulmonale presence: without acute cor pulmonale Qualified Code(s): I26.99 - Other pulmonary embolism without acute cor pulmonale Is this a current diagnosis for this admission?: Yes Plan: Patient was treated with a heparin protocol for pulmonary embolism. Further evaluation of his CTA and his chest x-ray will be undertaken with his primary oncologist and/or supervisor [employer] in [place] tomorrow when they may be reached at their offices. (4) Infiltrate of right lung present on chest x-ray Is this a current diagnosis for this admission?: Yes Plan: Patient will be treated for a possible pneumonia utilizing vancomycin, Zosyn and azithromycin administered intravenously due to his immunocompromised status having just received chemotherapy. Patient will also be started on a vigorous pulmonary toilet for treatment of pneumonia. Clarification of his x-ray and CTA findings may render this treatment and necessary however it is appropriate to initiate it at this time and obtain consultation with his oncologist and/or supervisor [employer] in [place] tomorrow. (5) Carcinoma of lung Qualifiers: Laterality: unspecified laterality Qualified Code(s): C34.90 - Malignant neoplasm of unspecified part of unspecified bronchus or lung Is this a current diagnosis for this admission?: Yes Plan: No acute care for this problem will be delivered to specifically however he will receive symptomatic and supportive care as required. (6) Elevated temperature Is this a current diagnosis for this admission?: Yes Plan: Patient's elevated temperature will be treated with Tylenol and/or ibuprofen for control. (7) Essential hypertension Is this a current diagnosis for this admission?: Yes Plan: Patient will be continued on his usual antihypertensive medications once his medication reconciliation has been completed. His blood pressure will be monitored closely throughout his hospital course. (8) Diabetes mellitus type 2 in nonobese Is this a current diagnosis for this admission?: Yes Plan: Patient will be treated with a diabetic diet and his usual diabetic medications when his medication reconciliation has been completed. In the interim he will have before meals and at bedtime Accu-Cheks obtained with sliding scale insulin coverage for hyperglycemia. A hypoglycemia protocol is also in place. Hemoglobin A1c will be obtained to evaluate his current diabetic therapy. (9) Tobacco use disorder, severe, dependence Is this a current diagnosis for this admission?: Yes Plan: Smoking cessation has been advised and counseled briefly. A nicotine replacement patch will be available for the patient's use. - Time Time Spent with patient: 25-34 minutes Smoking Cessation Education: 3 to 10 minutes Medications reviewed and adjusted accordingly: Yes - Inpatient Certification Based on my medical assessment, after consideration of the patient's comorbidities, presenting symptoms, or acuity I expect that the services needed warrant INPATIENT care.: Yes I certify that my determination is in accordance with my understanding of Medicare's requirements for reasonable and necessary INPATIENT services [42 CFR 412.3e].: Yes Medical Necessity: Significant Comorbidiites Make Outpatient Treatment Too Risky, Need Close Monitoring Due to Risk of Patient Decompensation, Need For IV Fluids, Need For Continuous Telemetry Monitoring, Need for Pain Control, Need for IV Antibiotics, Risk of Complication if Not Cared For in Hospital
--- NOTE | 2019-04-19 23:16 | ADVANCED CARE ---
- Diagnosis (1) Hypokalemia Diagnosis Current: Yes (2) Enterocolitis Diagnosis Current: Yes (3) Pulmonary embolism Diagnosis Current: Yes (4) Infiltrate of right lung present on chest x-ray Diagnosis Current: Yes (5) Carcinoma of lung Diagnosis Current: Yes (6) Elevated temperature Diagnosis Current: Yes (7) Essential hypertension Diagnosis Current: Yes (8) Diabetes mellitus type 2 in nonobese Diagnosis Current: Yes (9) Tobacco use disorder, severe, dependence Diagnosis Current: Yes Attendance: The patient and myself Resuscitation Status: Full Code Discussion: After brief discussion the patient is determined he wishes to remain full code resuscitation status for this admission. Further he has named Omid Ortiz as his designated surrogate medical decision-maker. Care Planning Goals: 1. Patient will be full CODE STATUS for this admission. 2. Omid Ortiz is the patient's designated surrogate medical decision maker. Document(s) Completed: Following entries were made to patient's permanent medical record including his current medical record and current orders via EMR entry: 1. Patient will be full CODE STATUS for this admission. 2. Omid Ortiz is the patient's designated surrogate medical decision maker. Time Spent: 3 minutes
[2019-04-20] MEDS ORDERED: PIPERACILLIN/TAZOBACTAM 3.375 GM VIAL IV PRN
[2019-04-20] MEDS: IPRATROPIUM BROMIDE 0.02% NEB 0.5 MG/2.5 ML AMPUL NEB SCH ×3 (00:30→16:22)
[2019-04-20] MEDS: LEVALBUTEROL HCL NEB 1.25 MG/3 ML AMPUL NEB SCH ×3 (00:30→16:22)
[2019-04-20] MEDS: PIPERACILLIN SODIUM/TAZOBACTAM 3.375 GM in NORMAL SALINE 100 ML IV SCH ×4 (01:38→18:06)
[2019-04-20] MEDS ORDERED: VANCOMYCIN HCL INJ 500 MG VIAL ONE (01:47)
[2019-04-20] MEDS ORDERED: INSULIN GLARGINE,HUM.REC.ANLOG 1,000 UNIT/10 ML VIAL (PYX) SUBCUT ONE (01:52)
[2019-04-20] MEDS ORDERED: INSULIN GLARGINE,HUM.REC.ANLOG 1,000 UNIT/10 ML VIAL (PYX) SUBCUT PRN (01:54)
[2019-04-20] MEDS ORDERED: INSULIN GLARGINE,HUM.REC.ANLOG 1,000 UNIT/10 ML VIAL SUBCUT ONE (02:00)
[2019-04-20] MEDS: INSULIN LISPRO 100 UNIT/ML 3 ML VIAL SUBCUT SCH ×5 (02:17→21:35)
[2019-04-20] MEDS: VANCOMYCIN HCL INJ 500 MG VIAL PO SCH ×2 (02:18→05:58)
[2019-04-20] MEDS: PANTOPRAZOLE SODIUM 40 MG VIAL IV SCH ×3 (02:18→21:36)
[2019-04-20 02:29] LABS: APPEARANCE,URINE CLEAR; BILIRUBIN,URINE NEGATIVE (NEGATIVE); COLOR,URINE YELLOW; GLUCOSE, URINE NEGATIVE (NEGATIVE); KETONES,URINE NEGATIVE (NEGATIVE); LEUKOCYTE ESTERASE,URINE NEGATIVE (NEGATIVE); NITRITE,URINE NEGATIVE (NEGATIVE); PROTEIN,URINE 30 mg/dL (NEGATIVE); URINE SPECIFIC GRAVITY 1.039; UROBILINOGEN,URINE NEGATIVE mg/dL (<2.0)
[2019-04-20] MEDS: MAGNESIUM SULFATE 1 GM/D5W 100 ML IV SCH ×2 (02:45→04:02)
[2019-04-20] MEDS: POTASSI CL 20 MEQ/NS 1L 1,000 ML IV PRN ×2 (04:03→09:35)
[2019-04-20] MEDS ORDERED: PIPERACILLIN/TAZOBACTAM 3.375 GM VIAL IV ONE (05:56)
[2019-04-20 05:58] LABS: HEMATOCRIT 24.5 % (37.9-51.0); HEMOGLOBIN 8.5 g/dL (13.5-17.0); MEAN CORPUSCULAR HEMOGLOBIN 32.6 pg (27.0-33.4); MEAN CORPUSCULAR HGB CONC 34.5 g/dL (32.0-36.0); MEAN CORPUSCULAR VOLUME 95 fl (80-97); PLATELET COUNT 467 10^3/uL (150-450); RED CELL DISTRIBUTION WIDTH 18.4 % (11.5-14.0); WHITE BLOOD COUNT 9.2 10^3/uL (4.0-10.5)
[2019-04-20 06:05] LABS: VENOUS BLOOD BASE EXCESS -3.8 mmol/L; VENOUS BLOOD HCO3 19.7 mmol/L (20-32); VENOUS BLOOD PCO2 29.5 mmHg (35-63); VENOUS BLOOD PH 7.44 (7.30-7.42)
[2019-04-20 06:28] LABS: ANION GAP 12 (5-19); BLOOD UREA NITROGEN 17 mg/dL (7-20); CALCIUM 8.7 mg/dL (8.4-10.2); CARBON DIOXIDE 21 mmol/L (22-30); CHLORIDE 105 mmol/L (98-107); CHOLESTEROL 117.04 mg/dL (0-200); GLUCOSE 148 mg/dL (75-110); TRIGLYCERIDES 92 mg/dL (<150)
[2019-04-20 06:36] LABS: POTASSIUM 2.6 mmol/L (3.6-5.0)
[2019-04-20 06:38] LABS: DIRECT LDL 66 mg/dL (<100)
[2019-04-20] MEDS ORDERED: POTASSIUM CHLORIDE 10 MEQ CAPSULE.ER PO ONE (07:00)
[2019-04-20] MEDS: POTASSIUM CHLORIDE 20 MEQ/50 ML RTU IV SCH ×2 (07:11→09:41)
[2019-04-20] MEDS ORDERED: HEPARIN SOD (PORCINE) 1,000 UNIT/ML 10 ML VIAL IV PRN (08:00)
[2019-04-20] MEDS ORDERED: VANCOMYCIN HCL 0 MG in DEXTROSE 5%-WATER 250 ML IV NR (08:30)
[2019-04-20] MEDS: ACETYLCYSTEINE 20% SOLN 800 MG/4 ML VIAL.NEB NEB SCH ×2 (08:54→20:21)
[2019-04-20] MEDS: BUDESONIDE NEB 0.5 MG/2 ML AMPUL NEB SCH ×2 (08:55→20:21)
[2019-04-20] MEDS: DOCUSATE SODIUM 100 MG CAPSULE PO SCH ×2 (09:29→18:00)
[2019-04-20] MEDS ORDERED: AZITHROMYCIN 500 MG in DEXTROSE 5%-WATER 250 ML IV SCH (10:00)
[2019-04-20] MEDS ORDERED: VANCOMYCIN HCL 750 MG in DEXTROSE 5%-WATER 250 ML IV SCH (10:00)
[2019-04-20] MEDS ORDERED: POTASSIUM CHLORIDE 10 MEQ CAPSULE.ER PO SCH (12:00)
[2019-04-20] MEDS: VANCOMYCIN HCL 750 MG in DEXTROSE 5%-WATER 250 ML IV SCH ×2 (15:35→23:12)
[2019-04-20 16:32] LABS: ANION GAP 12 (5-19); BLOOD UREA NITROGEN 13 mg/dL (7-20); CALCIUM 9.6 mg/dL (8.4-10.2); CARBON DIOXIDE 18 mmol/L (22-30); CHLORIDE 107 mmol/L (98-107); GLUCOSE 108 mg/dL (75-110)
[2019-04-20 16:34] LABS: POTASSIUM 2.7 mmol/L (3.6-5.0)
[2019-04-20] MEDS ORDERED: POTASSIUM CHLORIDE 20 MEQ PACKET PO ONE (17:48)
[2019-04-20] MEDS: HEPARIN SODIUM,PORCINE/D5W 25,000 UNIT/250 ML RTUINJ IV PRN (18:10)
[2019-04-20] MEDS: NORMAL SALINE 1000 ML 1,000 ML IV PRN (18:45)
[2019-04-20] MEDS: POTASSI CL 20 MEQ/50 ML RIDER 20 MEQ/50 ML RTUPB IV SCH ×2 (18:46→21:36)
[2019-04-20] MEDS: AZITHROMYCIN 500 MG in DEXTROSE 5%-WATER 250 ML IV SCH (18:53)
[2019-04-20] MEDS: MORPHINE SULFATE SR 30 MG TABLET PO SCH (21:34)
[2019-04-20] MEDS: CARVEDILOL 6.25 MG TABLET PO SCH (21:35)
[2019-04-20] MEDS: INSULIN GLARGINE,HUM.REC.ANLOG 1,000 UNIT/10 ML VIAL SUBCUT SCH (21:35)
--- NOTE | 2019-04-20 21:46 | Progress Note Acknowledgement ---
Progress Note Acknowledgement Progess Note Acknowledgement: I, the undersigned member of the medical staff with appropriate privileges and with supervisory authority over Barbara Hernandez, a [facility] practice allied health professional, acknowledge that I have reviewed the progress notes entered on this patient, and in my professional judgment believe that the assessment made and/or any care evidenced was appropriate
[2019-04-20] MEDS: OXYCODONE HCL IR 5 MG TABLET PO PRN (21:52)
[2019-04-20] MEDS ORDERED: (PENDING PHARMACY ID) (Morphine Sulfate [Morphine Sulfate Er] 30 MG) PO SCH (22:00)
--- NOTE | 2019-04-20 22:07 | PDOC PROGRESS REPORT ---
Subjective Progress Note for:: 04/20/19 Subjective:: The patient is a 44-year-old male, poor historian, but known to have a history of hypertension, DVT, metastatic lung cancer, DM type II, and tobacco dependency who was admitted 04/19/2019 for hypokalemia secondary to enterocolitis. Patient was seen on morning rounds. He was found resting in bed comfortably on room air. He does continue to report frequent bowel movement; several per hour. He does deny abdominal discomfort, nausea, and vomiting. He has been able to tolerate p.o. intake this morning. Otherwise he reports generalized weakness but has no other complaints. He denies fever, chills, chest pain, palpitations, dyspnea, orthopnea. He is unable to provide any further details into his recent chest imaging, lung cancer treatment, use or discontinuation of Xarelto therapy. He is unaware of any previous pulmonary embolus. Unfortunately, he is also unable to provide the name of his oncologist or the clinic to state that it is located in [place]. He has no other questions or concerns today. No specific concerns per nursing. Reason For Visit: HYPOKALEMIA,ACUTE ENTERITIS,PNEUMONIA Physical Exam Vital Signs: Temp Pulse Resp BP Pulse Ox 98.5 F 125 H 18 137/77 H 99 04/20/19 04:31 04/20/19 20:21 04/20/19 20:21 04/20/19 04:31 04/20/19 20:21 Intake & Output 04/19/19 04/20/19 04/21/19 06:59 06:59 06:59 Intake Total 3289 2711 Balance 3289 2711 Weight 66.4 kg General appearance: PRESENT: no acute distress, disheveled, thin, well-developed Head exam: PRESENT: atraumatic, normocephalic Eye exam: PRESENT: conjunctiva pink, EOMI, PERRLA. ABSENT: scleral icterus Mouth exam: PRESENT: moist, tongue midline Neck exam: ABSENT: carotid bruit, JVD, lymphadenopathy, thyromegaly Respiratory exam: PRESENT: clear to auscultation emily, symmetrical, tachypnea, unlabored. ABSENT: rales, rhonchi, wheezes Cardiovascular exam: PRESENT: RRR, +S1, +S2, tachycardia. ABSENT: diastolic murmur, rubs, systolic murmur Pulses: PRESENT: normal dorsalis pedis pul Vascular exam: PRESENT: normal capillary refill GI/Abdominal exam: PRESENT: normal bowel sounds, soft. ABSENT: distended, guarding, mass, organolmegaly, rebound, tenderness Rectal exam: PRESENT: deferred Extremities exam: PRESENT: full ROM. ABSENT: calf tenderness, clubbing, pedal edema Neurological exam: PRESENT: alert, awake, oriented to person, oriented to place, oriented to time, oriented to situation, CN II-XII grossly intact. ABSENT: motor sensory deficit Psychiatric exam: PRESENT: flat affect, normal mood. ABSENT: homicidal ideation, suicidal ideation Skin exam: PRESENT: dry, intact, warm. ABSENT: cyanosis, rash Results Laboratory Results: 04/20/19 05:48 04/20/19 15:52 04/19/19 04/19/19 04/20/19 15:35 19:20 01:15 WBC RBC Hgb Hct MCV MCH MCHC RDW Plt Count VBG pH VBG pCO2 VBG HCO3 VBG Base Excess Sodium Potassium Chloride Carbon Dioxide Anion Gap BUN Creatinine Est GFR ( Amer) Est GFR (Non-Af Amer) Glucose Lactic Acid Calcium Magnesium 1.2 L* Triglycerides Cholesterol LDL Cholesterol Direct VLDL Cholesterol HDL Cholesterol TSH Free T4 1.65 Free T3 pg/mL 2.54 L Urine Color Urine Appearance Urine pH Ur Specific [place] Urine Protein Urine Glucose (UA) Urine Ketones Urine Blood Urine Nitrite Ur Leukocyte Esterase Urine WBC (Auto) Urine RBC (Auto) Stool Occult Blood Stool for White Cells NO WBCs SEEN 04/20/19 04/20/19 04/20/19 01:15 01:15 01:31 WBC RBC Hgb Hct MCV MCH MCHC RDW Plt Count VBG pH VBG pCO2 VBG HCO3 VBG Base Excess Sodium Potassium Chloride Carbon Dioxide Anion Gap BUN Creatinine Est GFR ( Amer) Est GFR (Non-Af Amer) Glucose Lactic Acid 1.8 Calcium Magnesium Triglycerides Cholesterol LDL Cholesterol Direct VLDL Cholesterol HDL Cholesterol TSH Free T4 Free T3 pg/mL Urine Color YELLOW Urine Appearance CLEAR Urine pH 6.0 Ur Specific [place] 1.039 Urine Protein 30 H Urine Glucose (UA) NEGATIVE Urine Ketones NEGATIVE Urine Blood NEGATIVE Urine Nitrite NEGATIVE Ur Leukocyte Esterase NEGATIVE Urine WBC (Auto) 2 Urine RBC (Auto) 3 Stool Occult Blood NEGATIVE Stool for White Cells 04/20/19 04/20/19 04/20/19 05:48 05:48 05:48 WBC RBC Hgb Hct MCV MCH MCHC RDW Plt Count VBG pH VBG pCO2 VBG HCO3 VBG Base Excess Sodium 137.6 Potassium 2.6 L* Chloride 105 Carbon Dioxide 21 L Anion Gap 12 BUN 17 Creatinine 0.90 Est GFR ( Amer) > 60 Est GFR (Non-Af Amer) > 60 Glucose 148 H Lactic Acid 1.2 Calcium 8.7 Magnesium 2.0 Triglycerides 92 Cholesterol 117.04 LDL Cholesterol Direct 66 VLDL Cholesterol 18.0 HDL Cholesterol 30 L TSH 2.24 Free T4 Free T3 pg/mL Urine Color Urine Appearance Urine pH Ur Specific [place] Urine Protein Urine Glucose (UA) Urine Ketones Urine Blood Urine Nitrite Ur Leukocyte Esterase Urine WBC (Auto) Urine RBC (Auto) Stool Occult Blood Stool for White Cells 04/20/19 04/20/19 04/20/19 05:48 05:48 15:52 WBC 9.2 RBC 2.60 L Hgb 8.5 L Hct 24.5 L MCV 95 MCH 32.6 MCHC 34.5 RDW 18.4 H Plt Count 467 H VBG pH 7.44 H VBG pCO2 29.5 L VBG HCO3 19.7 L VBG Base Excess -3.8 Sodium 136.8 L Potassium 2.7 L* Chloride 107 Carbon Dioxide 18 L Anion Gap 12 BUN 13 Creatinine 1.00 Est GFR ( Amer) > 60 Est GFR (Non-Af Amer) > 60 Glucose 108 Lactic Acid Calcium 9.6 Magnesium Triglycerides Cholesterol LDL Cholesterol Direct VLDL Cholesterol HDL Cholesterol TSH Free T4 Free T3 pg/mL Urine Color Urine Appearance Urine pH Ur Specific [place] Urine Protein Urine Glucose (UA) Urine Ketones Urine Blood Urine Nitrite Ur Leukocyte Esterase Urine WBC (Auto) Urine RBC (Auto) Stool Occult Blood Stool for White Cells Impressions: Chest X-Ray 04/19/19 16:10 IMPRESSION: Diffuse airspace opacity at the right lung with masslike consolid ation at the right upper lobe and mediastinal shift to the right. Left lung nodules. Small right pleural effusion. CT thorax can help in further evaluation. Chest/Abdomen CTA 04/19/19 17:49 IMPRESSION: 1. Acute pulmonary embolus at the right main pulmonary artery. 2. Masslike consolidation at the right upper lobe extending into the right hilum and mediastinum, probably corresponding to patient's known malignancy. 3. Consolidation with air bronchograms at the right lower lobe, may be secondary to progression of malignancy versus pneumonia. 4. Nodular densities at the trachea and right mainstem bronchus, endobronchial lesions cannot be excluded. 5. Moderate right pleural effusion. 6. Multiple bilateral pulmonary nodules and mediastinal adenopathy, most consi stent with metastatic disease. 7. Small pericardial effusion. 8. Diffuse chest wall edema. Bilateral gynecomastia. 9. Osseous metastatic lesion at the posterior aspect of T10 vertebral body. Contrast-enhanced MRI can help to evaluate for extension into the spinal canal. Abdomen/Pelvis CT 04/19/19 17:57 IMPRESSION: 1. Air-fluid levels throughout the small bowel, colon and at the rectum, may be seen with enterocolitis. 2. Mild colonic diverticulosis. 3. Osseous metastasis at T10 vertebral body. 4. 1.1 cm sclerotic lesion at the left acetabulum, indeterminate. Assessment and Plan - Diagnosis (1) Hypokalemia Is this a current diagnosis for this admission?: Yes Plan: Secondary to poor p.o. intake and GI losses; frequent diarrhea related to recent chemotherapy treatment. Magnesium was low at 1.2; this is been replaced. Patient is receiving a combination of IV and p.o. potassium. We will continue to monitor serial chemistries and replace as indicated. (2) Enterocolitis Is this a current diagnosis for this admission?: Yes Plan: Likely secondary to chemotherapy treatment. C. difficile PCR is negative. Hemoccult is negative. Stool is negative for WBCs. Stool culture is pending. Continue IV fluids and supportive care. (3) Carcinoma of lung Qualifiers: Laterality: unspecified laterality Qualified Code(s): C34.90 - Malignant neoplasm of unspecified part of unspecified bronchus or lung Is this a current diagnosis for this admission?: Yes Plan: No acute care for this problem; symptomatic and supportive care. Continue the patient's outpatient pain medication regiment. Have requested any recent oncology progress note, discharge summaries, chest x- ray and/or CT imaging from [facility] to assist with determining if the findings on our imaging studies are present for acute or chronic changes related to his lung cancer. (4) Diabetes mellitus type 2 in nonobese Is this a current diagnosis for this admission?: Yes Plan: A1c is 6.5%. He is placed on a consistent carb/cardiac diet. Have resumed his home medication regiment of Lantus 8 units twice daily, Humalog 7 units with meals, and sliding scale coverage. Hypoglycemia protocol is in place. (5) Essential hypertension Is this a current diagnosis for this admission?: Yes Plan: Patient endorses a history of hypertension. Blood pressures have been somewhat elevated but overall acceptable today. Consistent carb/cardiac diet. Continue home dose carvedilol. (6) Infiltrate of right lung present on chest x-ray Is this a current diagnosis for this admission?: Yes Plan: On admission the patient had a low-grade temperature of 100.1. He has had tachypnea, no overall improved (28->18), but does remain tachycardic with a heart rate of 110-125. Chest x-ray and CTA of the chest concerning for consolidation with air bronchograms at the right lower lobe; possible secondary to progression of his malignancy versus pneumonia. Patient does have a normal WBC and acceptable ANC. Blood cultures are negative at 24 hours. Sputum cultures are pending. The patient has empirically been placed on IV azithromycin, vancomycin, and Zosyn for treatment of healthcare associated pneumonia in an immunocompromised patient. I have requested any recent imaging, oncology progress note, and discharge summaries from [facility] comparison. It is unclear whether or not these findings represent an acute pneumonia versus subacute/chronic changes related to his malignancy. Low threshold for hematology/oncology and pulmonology consultations this admission. Supplemental oxygen as needed to maintain saturations greater than 90%. Scheduled and as needed nebulizer treatments. Pulmicort nebs twice daily. Mucomyst nebs twice daily. Tylenol as needed for fever. Incentive spirometer and flutter valve to bedside. (7) Pulmonary embolism Qualifiers: Pulmonary embolism type: other Chronicity: unspecified Acute cor pulmonale presence: without acute cor pulmonale Qualified Code(s): I26.99 - Other pulmonary embolism without acute cor pulmonale Is this a current diagnosis for this admission?: Yes Plan: Patient has been placed on a heparin protocol for pulmonary embolism. It appears that the patient takes Xarelto 20 mg daily; he is unable to say why he is on this medication and whether or not this is a current or old medication. Continue to provide supplemental oxygen as needed to maintain saturations. Have requested imaging, progress notes, and discharge summary from [facility] for comparison. (8) Tobacco use disorder, severe, dependence Is this a current diagnosis for this admission?: Yes Plan: Smoking cessation has been advised. A nicotine replacement patch will be available for the patient's use. - Time Time Spent with patient: 25-34 minutes Medications reviewed and adjusted accordingly: Yes
[2019-04-21] MEDS: IPRATROPIUM BROMIDE 0.02% NEB 0.5 MG/2.5 ML AMPUL NEB SCH ×3 (00:14→16:16)
[2019-04-21] MEDS: LEVALBUTEROL HCL NEB 1.25 MG/3 ML AMPUL NEB SCH ×3 (00:14→16:16)
[2019-04-21] MEDS: PIPERACILLIN SODIUM/TAZOBACTAM 3.375 GM in NORMAL SALINE 100 ML IV SCH ×4 (01:12→18:42)
[2019-04-21] MEDS: NORMAL SALINE 1000 ML 1,000 ML IV PRN ×3 (03:48→18:38)
[2019-04-21 06:47] LABS: HEMATOCRIT 21.3 % (37.9-51.0); MEAN CORPUSCULAR HEMOGLOBIN 32.8 pg (27.0-33.4); MEAN CORPUSCULAR HGB CONC 34.6 g/dL (32.0-36.0); MEAN CORPUSCULAR VOLUME 95 fl (80-97); PLATELET COUNT 424 10^3/uL (150-450); RED BLOOD COUNT 2.24 10^6/uL (4.35-5.55); RED CELL DISTRIBUTION WIDTH 17.8 % (11.5-14.0); WHITE BLOOD COUNT 6.3 10^3/uL (4.0-10.5)
[2019-04-21 06:57] LABS: HEMOGLOBIN 7.3 g/dL (13.5-17.0)
[2019-04-21 07:18] LABS: ANION GAP 12 (5-19); BLOOD UREA NITROGEN 9 mg/dL (7-20); CALCIUM 10.1 mg/dL (8.4-10.2); CARBON DIOXIDE 17 mmol/L (22-30); CHLORIDE 107 mmol/L (98-107); GLUCOSE 130 mg/dL (75-110)
[2019-04-21 07:27] LABS: POTASSIUM 2.9 mmol/L (3.6-5.0)
[2019-04-21] MEDS ORDERED: NORMAL SALINE 250 ML IV PRN ×2 (07:55)
[2019-04-21] MEDS ORDERED: INSULIN GLARGINE,HUM.REC.ANLOG 1,000 UNIT/10 ML VIAL SUBCUT SCH (08:00)
[2019-04-21] MEDS: INSULIN LISPRO 100 UNIT/ML 3 ML VIAL SUBCUT SCH ×7 (09:01→21:41)
[2019-04-21] MEDS: DOCUSATE SODIUM 100 MG CAPSULE PO SCH ×2 (09:03→18:33)
[2019-04-21] MEDS: BUDESONIDE NEB 0.5 MG/2 ML AMPUL NEB SCH ×2 (09:06→19:56)
[2019-04-21] MEDS: ACETYLCYSTEINE 20% SOLN 800 MG/4 ML VIAL.NEB NEB SCH ×2 (09:07→19:56)
[2019-04-21] MEDS: VANCOMYCIN HCL 750 MG in DEXTROSE 5%-WATER 250 ML IV SCH ×3 (09:19→23:00)
[2019-04-21] MEDS: MAGNESIUM SULFATE/D5W 1 GM/100 ML RTUPB IV SCH ×2 (09:24→11:16)
[2019-04-21] MEDS: PANTOPRAZOLE SODIUM 40 MG VIAL IV SCH ×2 (09:26→21:41)
[2019-04-21] MEDS: CARVEDILOL 6.25 MG TABLET PO SCH ×2 (09:32→21:41)
[2019-04-21] MEDS: POTASSIUM CHLORIDE 20 MEQ PACKET PO SCH (09:32)
[2019-04-21] MEDS: PREDNISONE 10 MG TABLET PO SCH (09:32)
[2019-04-21] MEDS: MORPHINE SULFATE SR 30 MG TABLET PO SCH ×2 (09:32→21:41)
[2019-04-21] MEDS ORDERED: LOPERAMIDE HCL 2 MG CAPSULE PO PRN (10:09)
[2019-04-21] MEDS ORDERED: LOPERAMIDE HCL 2 MG CAPSULE PO ONE (10:09)
[2019-04-21] MEDS: OXYCODONE HCL IR 5 MG TABLET PO PRN ×3 (10:31→22:51)
[2019-04-21 10:57] LABS: VANCOMYCIN,TROUGH 18.5 ug/mL (5.0-20.0)
[2019-04-21] MEDS: HEPARIN SODIUM,PORCINE/D5W 25,000 UNIT/250 ML RTUINJ IV PRN (11:15)
[2019-04-21] MEDS: ACETAMINOPHEN 325 MG TABLET PO PRN (12:17)
[2019-04-21] MEDS: METOPROLOL TARTRATE PF/INJ 5 MG/5 ML SDV IV PRN (12:17)
[2019-04-21] MEDS: ONDANSETRON HCL INJ/PF 4 MG/2 ML SDV IV PRN (12:18)
[2019-04-21] MEDS: POTASSI CL 20 MEQ/50 ML RIDER 20 MEQ/50 ML RTUPB IV SCH ×2 (12:32→14:33)
[2019-04-21] MEDS ORDERED: TUBERCULIN,PURIF.PROT.DERIV. 5 TU/0.1 ML TEST 1 ML VIAL ID ONE (16:30)
[2019-04-21 17:51] LABS: ANION GAP 10 (5-19); BLOOD UREA NITROGEN 9 mg/dL (7-20); CALCIUM 10.3 mg/dL (8.4-10.2); CARBON DIOXIDE 17 mmol/L (22-30); CHLORIDE 108 mmol/L (98-107); GLUCOSE 148 mg/dL (75-110); POTASSIUM 3.4 mmol/L (3.6-5.0)
--- NOTE | 2019-04-21 18:12 | Progress Note Acknowledgement ---
Progress Note Acknowledgement Progess Note Acknowledgement: I, the undersigned member of the medical staff with appropriate privileges and with supervisory authority over Barbara Hernandez, a [facility] practice allied health professional, acknowledge that I have reviewed the progress notes entered on this patient, and in my professional judgment believe that the assessment made and/or any care evidenced was appropriate
--- NOTE | 2019-04-21 18:24 | PDOC PROGRESS REPORT ---
Subjective Progress Note for:: 04/21/19 Subjective:: The patient is a 44-year-old male, poor historian, but known to have a history of hypertension, DVT, metastatic lung cancer, DM type II, and tobacco dependency who was admitted 04/19/2019 for hypokalemia secondary to enterocolitis. Patient was seen on morning rounds. He was found resting in bed comfortably on room air. He does continue to report frequent bowel movement. He denies abdominal discomfort, nausea, and vomiting. He has been able to tolerate p.o. intake this morning. He also reports low-grade temperatures overnight and slight hemoptysis this morning. He denies chills, chest pain, palpitations, dyspnea, orthopnea. He was able to contact his oncology nurse navigator today; she has been in touch with the patient's primary nurse who has confirmed that he was previously on Xarelto for a right arm DVT. She denies recent history of pulmonary embolus. She is going to assist with faxing recent medical records. Patient asks that he be provided Imodium to decrease the frequency of his bowel movements. Otherwise, he has no new questions or concerns. No specific concerns per nursing. Reason For Visit: HYPOKALEMIA,ACUTE ENTERITIS,PNEUMONIA Physical Exam Vital Signs: Temp Pulse Resp BP Pulse Ox 99.2 F 112 H 20 142/81 H 100 04/21/19 07:57 04/21/19 16:16 04/21/19 16:16 04/21/19 07:57 04/21/19 16:16 Intake & Output 04/20/19 04/21/19 04/22/19 06:59 06:59 06:59 Intake Total 3289 4820 1879 Balance 3289 4820 1879 Weight 66.4 kg 68.1 kg General appearance: PRESENT: no acute distress, disheveled, thin, well- developed, well-nourished Head exam: PRESENT: atraumatic, normocephalic Eye exam: PRESENT: conjunctiva pink, EOMI, PERRLA. ABSENT: scleral icterus Mouth exam: PRESENT: moist, tongue midline Neck exam: ABSENT: carotid bruit, JVD, lymphadenopathy, thyromegaly Respiratory exam: PRESENT: clear to auscultation emily, symmetrical, unlabored. ABSENT: rales, rhonchi, wheezes Cardiovascular exam: PRESENT: RRR, +S1, +S2, tachycardia - 110-130 at rest. ABSENT: diastolic murmur, rubs, systolic murmur Pulses: PRESENT: normal dorsalis pedis pul Vascular exam: PRESENT: normal capillary refill GI/Abdominal exam: PRESENT: normal bowel sounds, soft. ABSENT: distended, guarding, mass, organolmegaly, rebound, tenderness Rectal exam: PRESENT: deferred Extremities exam: PRESENT: full ROM. ABSENT: calf tenderness, clubbing, pedal edema Musculoskeletal exam: PRESENT: ambulatory Neurological exam: PRESENT: alert, awake, oriented to person, oriented to place, oriented to time, oriented to situation, CN II-XII grossly intact. ABSENT: motor sensory deficit Psychiatric exam: PRESENT: appropriate affect, flat affect, normal mood. ABSEN T: homicidal ideation, suicidal ideation Skin exam: PRESENT: dry, intact, warm. ABSENT: cyanosis, rash Results Laboratory Results: 04/21/19 06:03 04/21/19 15:57 04/21/19 04/21/19 04/21/19 06:03 06:03 08:14 WBC 6.3 RBC 2.24 L Hgb 7.3 L Hct 21.3 L MCV 95 MCH 32.8 MCHC 34.6 RDW 17.8 H Plt Count 424 Sodium 135.5 L Potassium 2.9 L* Chloride 107 Carbon Dioxide 17 L Anion Gap 12 BUN 9 Creatinine 1.02 Est GFR ( Amer) > 60 Est GFR (Non-Af Amer) > 60 Glucose 130 H Calcium 10.1 Magnesium 1.2 L* Blood Type B POSITIVE Antibody Screen NEGATIVE 04/21/19 15:57 WBC RBC Hgb Hct MCV MCH MCHC RDW Plt Count Sodium 134.6 L Potassium 3.4 L Chloride 108 H Carbon Dioxide 17 L Anion Gap 10 BUN 9 Creatinine 1.04 Est GFR ( Amer) > 60 Est GFR (Non-Af Amer) > 60 Glucose 148 H Calcium 10.3 H Magnesium Blood Type Antibody Screen Impressions: Chest X-Ray 04/19/19 16:10 IMPRESSION: Diffuse airspace opacity at the right lung with masslike consolidation at the right upper lobe and mediastinal shift to the right. Left lung nodules. Small right pleural effusion. CT thorax can help in further evaluation. Chest/Abdomen CTA 04/19/19 17:49 IMPRESSION: 1. Acute pulmonary embolus at the right main pulmonary artery. 2. Masslike consolidation at the right upper lobe extending into the right hilum and mediastinum, probably corresponding to patient's known malignancy. 3. Consolidation with air bronchograms at the right lower lobe, may be secondary to progression of malignancy versus pneumonia. 4. Nodular densities at the trachea and right mainstem bronchus, endobronchial lesions cannot be excluded. 5. Moderate right pleural effusion. 6. Multiple bilateral pulmonary nodules and mediastinal adenopathy, most consistent with metastatic disease. 7. Small pericardial effusion. 8. Diffuse chest wall edema. Bilateral gynecomastia. 9. Osseous metastatic lesion at the posterior aspect of T10 vertebral body. Contrast-enhanced MRI can help to evaluate for extension into the spinal canal. Abdomen/Pelvis CT 04/19/19 17:57 IMPRESSION: 1. Air-fluid levels throughout the small bowel, colon and at the rectum, may be seen with enterocolitis. 2. Mild colonic diverticulosis. 3. Osseous metastasis at T10 vertebral body. 4. 1.1 cm sclerotic lesion at the left acetabulum, indeterminate. Assessment and Plan - Diagnosis (1) Hypokalemia Is this a current diagnosis for this admission?: Yes Plan: Improved; 2.6-> 3.4 Secondary to poor p.o. intake and GI losses; frequent diarrhea related to recent chemotherapy treatment. Magnesium was low at 1.2; this is been replaced. Patient is receiving a combination of IV and p.o. potassium. We will continue to monitor serial chemistries and replace as indicated. (2) Hypomagnesemia Is this a current diagnosis for this admission?: Yes Plan: Mag 1.2-> 2.0-> 1.2 Secondary to poor p.o. intake and GI losses; frequent diarrhea related to recent chemotherapy treatment. Providing additional IV magnesium today (3) Enterocolitis Is this a current diagnosis for this admission?: Yes Plan: Likely secondary to chemotherapy treatment. C. difficile PCR is negative. Hemoccult is negative. Stool is negative for WBCs. Stool culture is pending. Continue IV fluids and supportive care. Start lactobacillus and Imodium. (4) Carcinoma of lung Qualifiers: Laterality: unspecified laterality Qualified Code(s): C34.90 - Malignant neoplasm of unspecified part of unspecified bronchus or lung Is this a current diagnosis for this admission?: Yes Plan: No acute care for this problem; symptomatic and supportive care. Continue the patient's outpatient pain medication regiment. Patient was able to contact his clinical services professional today; she has faxed over recent medical records and chest imaging. Have consulted Dr. Perdomo; appreciate her assistance in ensuring that the patient continues to receive appropriate oncological care. (5) Diabetes mellitus type 2 in nonobese Is this a current diagnosis for this admission?: Yes Plan: A1c is 6.5%. He is placed on a consistent carb/cardiac diet. Have resumed his home medication regiment of Lantus 8 units twice daily, Humalog 7 units with meals, and sliding scale coverage. Hypoglycemia protocol is in place. (6) Essential hypertension Is this a current diagnosis for this admission?: Yes Plan: Patient endorses a history of hypertension. Blood pressures have been somewhat elevated but overall acceptable today. Consistent carb/cardiac diet. Continue home dose carvedilol. (7) Infiltrate of right lung present on chest x-ray Is this a current diagnosis for this admission?: Yes Plan: On admission the patient had a low-grade temperature of 100.1. He has had tachypnea, no overall improved (28->18), but does remain tachycardic with a heart rate of 110-125. Chest x-ray and CTA of the chest concerning for consolidation with air bronchograms at the right lower lobe; possible secondary to progression of his malignancy versus pneumonia. Patient does have a normal WBC and acceptable ANC. Blood cultures are negative at 48 hours. Sputum cultures are pending. The patient has empirically been placed on IV azithromycin, vancomycin, and Zosyn for treatment of healthcare associated pneumonia in an immunocompromised patient. Will adjust antibiotics as cultures result. Have consulted hematology/oncology for assistance. Low threshold for pulmonology consultation. Supplemental oxygen as needed to maintain saturations greater than 90%. Scheduled and as needed nebulizer treatments. Pulmicort nebs twice daily. Mucomyst nebs twice daily. Tylenol as needed for fever. Incentive spirometer and flutter valve to bedside. (8) Pulmonary embolism Qualifiers: Pulmonary embolism type: other Chronicity: unspecified Acute cor pulmonale presence: without acute cor pulmonale Qualified Code(s): I26.99 - Other pulmonary embolism without acute cor pulmonale Is this a current diagnosis for this admission?: Yes Plan: Patient has been placed on a heparin protocol for pulmonary embolism. Patient's primary nurse was able to discuss the patient's case with his clinical services professional at [facility]. Patient was previously on Xarelto for treatment of a right arm DVT. Patient reports that he stopped the Xarelto approximately 1 week prior to admission due to development of hemoptysis. Per navigator, patient has no known history of pulmonary embolus. He does have an IVC filter in place. Continue to provide supplemental oxygen as needed to maintain saturations. Continue heparin drip. Hematology/oncology has been consulted; appreciate Dr. Perdomo's assistance. Anticipate resumption of Xarelto at discharge. (9) Tobacco use disorder, severe, dependence Is this a current diagnosis for this admission?: Yes Plan: Smoking cessation has been advised. A nicotine replacement patch will be available for the patient's use. (10) Anemia Qualifiers: Anemia type: unspecified type Qualified Code(s): D64.9 - Anemia, unspecified Is this a current diagnosis for this admission?: Yes Plan: Likely multifactorial secondary to Poor nutrition, malignancy, and hemodilution (patient has received approximately 10 L of IV fluid since admission). Hgb 9.9-> 7.3 Urinalysis and Hemoccult are negative for blood. He is transfused 2 units PRBC today. Heme/Onc consulted. - Time Time Spent with patient: 35 or more minutes Medications reviewed and adjusted accordingly: Yes
[2019-04-21] MEDS: LACTOBACILLUS ACIDOPHILUS 250 MG TAB PO SCH (18:37)
[2019-04-21] MEDS: AZITHROMYCIN 500 MG in DEXTROSE 5%-WATER 250 ML IV SCH (18:37)
[2019-04-21] MEDS: LEVALBUTEROL HCL NEB 0.63 MG/3 ML AMPUL NEB PRN (19:56)
[2019-04-21] MEDS: INSULIN GLARGINE,HUM.REC.ANLOG 1,000 UNIT/10 ML VIAL SUBCUT SCH (21:41)
[2019-04-22] MEDS: LEVALBUTEROL HCL NEB 1.25 MG/3 ML AMPUL NEB SCH ×3 (00:37→16:12)
[2019-04-22] MEDS: IPRATROPIUM BROMIDE 0.02% NEB 0.5 MG/2.5 ML AMPUL NEB SCH ×3 (00:37→16:12)
[2019-04-22] MEDS: PIPERACILLIN SODIUM/TAZOBACTAM 3.375 GM in NORMAL SALINE 100 ML IV SCH ×4 (01:02→20:45)
[2019-04-22] MEDS: ONDANSETRON HCL INJ/PF 4 MG/2 ML SDV IV PRN ×2 (03:59→21:57)
[2019-04-22] MEDS: NORMAL SALINE 1000 ML 1,000 ML IV PRN ×2 (04:00→19:56)
[2019-04-22] MEDS: HEPARIN SODIUM,PORCINE/D5W 25,000 UNIT/250 ML RTUINJ IV PRN ×2 (04:21→19:56)
[2019-04-22] MEDS: METOPROLOL TARTRATE PF/INJ 5 MG/5 ML SDV IV PRN (06:35)
[2019-04-22 06:36] LABS: HEMATOCRIT 26.4 % (37.9-51.0); HEMOGLOBIN 8.9 g/dL (13.5-17.0); MEAN CORPUSCULAR HEMOGLOBIN 30.7 pg (27.0-33.4); MEAN CORPUSCULAR HGB CONC 33.5 g/dL (32.0-36.0); MEAN CORPUSCULAR VOLUME 92 fl (80-97); PLATELET COUNT 380 10^3/uL (150-450); RED BLOOD COUNT 2.89 10^6/uL (4.35-5.55); RED CELL DISTRIBUTION WIDTH 20.3 % (11.5-14.0); WHITE BLOOD COUNT 6.3 10^3/uL (4.0-10.5)
[2019-04-22 07:05] LABS: ANION GAP 11 (5-19); BLOOD UREA NITROGEN 9 mg/dL (7-20); CALCIUM 10.6 mg/dL (8.4-10.2); CARBON DIOXIDE 19 mmol/L (22-30); CHLORIDE 105 mmol/L (98-107); POTASSIUM 3.1 mmol/L (3.6-5.0)
[2019-04-22 07:08] LABS: VANCOMYCIN,TROUGH 21.6 ug/mL (5.0-20.0)
[2019-04-22 07:10] LABS: APPEARANCE,URINE CLEAR; BILIRUBIN,URINE NEGATIVE (NEGATIVE); COLOR,URINE YELLOW; GLUCOSE, URINE NEGATIVE (NEGATIVE); KETONES,URINE NEGATIVE (NEGATIVE); LEUKOCYTE ESTERASE,URINE NEGATIVE (NEGATIVE); NITRITE,URINE NEGATIVE (NEGATIVE); PROTEIN,URINE NEGATIVE (NEGATIVE); URINE SPECIFIC GRAVITY 1.013; UROBILINOGEN,URINE NEGATIVE mg/dL (<2.0)
[2019-04-22 07:18] LABS: GLUCOSE 63 mg/dL (75-110)
[2019-04-22 07:22] LABS: ADD MANUAL MICROSCOPIC YES
[2019-04-22 07:24] LABS: BACTERIA,URINE TRACE /HPF
[2019-04-22] MEDS: VANCOMYCIN HCL 750 MG in DEXTROSE 5%-WATER 250 ML IV SCH (07:46)
[2019-04-22] MEDS ORDERED: POTASSIUM CHLORIDE 20 MEQ PACKET PO ONE ×2 (08:02→19:30)
[2019-04-22] MEDS: ACETYLCYSTEINE 20% SOLN 800 MG/4 ML VIAL.NEB NEB SCH ×2 (08:03→20:27)
[2019-04-22] MEDS: BUDESONIDE NEB 0.5 MG/2 ML AMPUL NEB SCH ×2 (08:05→20:27)
[2019-04-22] MEDS: INSULIN LISPRO 100 UNIT/ML 3 ML VIAL SUBCUT SCH ×4 (08:28→21:57)
[2019-04-22] MEDS: DOCUSATE SODIUM 100 MG CAPSULE PO SCH ×2 (10:42→17:39)
[2019-04-22] MEDS: CARVEDILOL 6.25 MG TABLET PO SCH ×2 (10:52→21:59)
[2019-04-22] MEDS: MORPHINE SULFATE SR 30 MG TABLET PO SCH ×2 (10:52→21:59)
[2019-04-22] MEDS: LACTOBACILLUS ACIDOPHILUS 250 MG TAB PO SCH ×2 (10:52→18:02)
[2019-04-22] MEDS: OXYCODONE HCL IR 5 MG TABLET PO PRN ×2 (10:52→21:57)
[2019-04-22] MEDS: PREDNISONE 10 MG TABLET PO SCH (10:52)
[2019-04-22] MEDS: PANTOPRAZOLE SODIUM 40 MG VIAL IV SCH ×2 (10:53→21:57)
[2019-04-22] MEDS: ACETAMINOPHEN 325 MG TABLET PO PRN (10:53)
[2019-04-22] MEDS: MAGNESIUM SULFATE/D5W 1 GM/100 ML RTUPB IV SCH ×2 (10:53→13:11)
[2019-04-22] MEDS: INSULIN GLARGINE,HUM.REC.ANLOG 1,000 UNIT/10 ML VIAL SUBCUT SCH ×2 (10:54→21:58)
[2019-04-22] MEDS: POTASSIUM CHLORIDE 20 MEQ PACKET PO SCH (10:54)
--- NOTE | 2019-04-22 11:56 | PDOC CONSULTATION ---
Consultation Consult Date: 04/22/19 Provider Consulted: TRACI SAEED Consult reason:: Patient on active treatment for metastatic lung cancer with new pulmonary embolism. History of Present Illness Admission Date/PCP: 04/19/19 20:02 History of Present Illness: WARREN MARIANO JR is a 44 year old male who was diagnosed with non-small cell lung cancer with bone mets. He presented with SVC syndrome. He has been undergoing treatment at [facility] for this. According to their notes, he is on at least second line chemo with Cisplatin and irinotecan. He received cycle # 4 Day 1 of this regimen on 04/16/2019. He also has a history of blood clots and has had IVC filter placed and has been on xarelto. He was told to hold the xarelto for hemoptysis, but otherwise, has been taking this regularly. He presented to the ED with complaints of diarrhea and weak legs. He was found to be dehydrated and had fever with evidence of RLL pneumonia and some hemoptysis. Further testing found a new Pulmonary embolism. He was started on Heparin drip, and HGB has been monitored very closely. Today, he states that he is feeling some better, but he is still very weak. His right knee feels weaker than everywhere else. His breathing has improved. He only had 1 BM last night. He has had a decreased appetite. Past Medical History Cardiac Medical History: Reports: DVT, Hypertension Denies: Atrial Fibrillation, Coronary Artery Disease, Myocardial Infarction, Pulmonary Embolism Pulmonary Medical History: Reports: Bronchitis, Other - Metastatic pulmonary carcinoma Denies: Asthma, Chronic Obstructive Pulmonary Disease (COPD), Pneumonia, Respiratory Failure, Sleep Apnea EENT Medical History: Denies: Cataracts, Ears - Hearing aids Neurological Medical History: Denies: Hemorrhagic CVA, Ischemic CVA, Multiple Sclerosis, Seizures Endocrine Medical History: Reports: Diabetes Mellitus Type 2 Denies: Diabetes Mellitus Type 1, Hyperthyroidism, Hypothyroidism, Obesity Renal/ Medical History: Denies: Chronic Kidney Disease, Nephrolithiasis Malignancy Medical History: Reports: Lung Cancer GI Medical History: Denies: Cirrhosis, Crohn's Disease, Hepatitis, Ulcerative Colitis Musculoskeltal Medical History: Denies: Arthritis, Fibromyalgia, Gout Skin Medical History: Denies: Eczema, Psoriasis Psychiatric Medical History: Reports: Tobacco Dependency Denies: Alcohol Dependency, Substance Abuse Traumatic Medical History: Reports: None Hematology: Reports: Anemia - Chronic Denies: Bleeding Tendencies Infectious Medical History: Reports: None Past Surgical History Past Surgical History: Reports: Appendectomy, Orthopedic Surgery - right ankle ORIF after injury, Other - Bronchoscopy and lung/tumor biopsies. 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 1 dog. - Advance Directive Resuscitation Status: Full Code Family History Family History: DM, Hypertension. denies: CAD, Malignancy Parental Family History Reviewed: Yes - Mother still living, with DM. Father still living. Children Family History Reviewed: Yes Sibling(s) Family History Reviewed.: Yes Medication/Allergy Home Medications: Carvedilol [Coreg 6.25 mg Tablet] 6.25 mg PO Q12 04/20/19 Furosemide [Lasix 20 mg Tablet] 40 mg PO DAILYP PRN 04/20/19 Insulin Glargine,Hum.rec.anlog [Lantus Insulin 100 Unit/1 ml 10 ml] 8 unit SQ QAM 04/20/19 Insulin Lispro [Humalog Insulin (Lispro) 100 unit/mL] 7 units SQ MEALS 04/20/19 Morphine Sulfate [Morphine Sulfate ER] 30 mg PO Q12 04/20/19 Oxycodone HCl 20 mg PO Q6HP PRN 04/20/19 Potassium Chloride 40 meq PO DAILY 04/20/19 Prednisone [Deltasone 10 mg Tablet] 10 mg PO [id number] 04/20/19 Rivaroxaban [Xarelto] 20 mg PO WSUPPER 04/20/19 Allergies/Adverse Reactions: No Known Allergies Allergy (Verified 11/01/18 20:01) Review of Systems Constitutional: ABSENT: fever(s), headache(s) Eyes: ABSENT: visual disturbances Ears: ABSENT: hearing changes Nose, Mouth, and Throat: ABSENT: sore throat Cardiovascular: PRESENT: dyspnea on exertion. ABSENT: chest pain Respiratory: PRESENT: dyspnea Gastrointestinal: PRESENT: diarrhea, hematemesis, nausea Genitourinary: ABSENT: hematuria Musculoskeletal: PRESENT: as per HPI Integumentary: ABSENT: rash Neurological: PRESENT: weakness Hematologic/Lymphatic: ABSENT: lymphadenopathy Physical Exam Vital Signs: Temp Pulse Resp BP Pulse Ox 98.7 F 117 H 18 148/89 H 100 04/22/19 04:56 04/22/19 08:05 04/22/19 08:05 04/22/19 04:56 04/22/19 08:05 Intake & Output 04/21/19 04/22/19 04/23/19 06:59 06:59 06:59 Intake Total 4820 6124 46 Output Total 700 Balance 4820 5424 46 Weight 68.1 kg 71.7 kg General appearance: PRESENT: no acute distress, well-developed, well-nourished Exam: 44 year old male. Head exam: PRESENT: normocephalic Eye exam: PRESENT: EOMI, PERRLA Mouth exam: PRESENT: tongue midline Neck exam: ABSENT: lymphadenopathy, tenderness Respiratory exam: PRESENT: clear to auscultation emily, unlabored Cardiovascular exam: PRESENT: RRR. ABSENT: systolic murmur GI/Abdominal exam: PRESENT: soft. ABSENT: organolmegaly, tenderness Extremities exam: ABSENT: pedal edema Neurological exam: PRESENT: alert, awake, oriented to person, oriented to place, oriented to time, oriented to situation Psychiatric exam: PRESENT: appropriate affect Skin exam: PRESENT: normal color Results Laboratory Results: 04/22/19 06:20 04/22/19 06:20 04/21/19 04/21/19 04/22/19 08:14 15:57 05:00 WBC RBC Hgb Hct MCV MCH MCHC RDW Plt Count Sodium 134.6 L Potassium 3.4 L Chloride 108 H Carbon Dioxide 17 L Anion Gap 10 BUN 9 Creatinine 1.04 Est GFR ( Amer) > 60 Est GFR (Non-Af Amer) > 60 Glucose 148 H Calcium 10.3 H Magnesium Urine Color YELLOW Urine Appearance CLEAR Urine pH 5.0 Ur Specific [place] 1.013 Urine Protein NEGATIVE Urine Glucose (UA) NEGATIVE Urine Ketones NEGATIVE Urine Blood NEGATIVE Urine Nitrite NEGATIVE Ur Leukocyte Esterase NEGATIVE Ur Squamous Epith Cells RARE Blood Type B POSITIVE Antibody Screen NEGATIVE 04/22/19 04/22/19 06:20 06:20 WBC 6.3 RBC 2.89 L Hgb 8.9 L Hct 26.4 L MCV 92 MCH 30.7 MCHC 33.5 RDW 20.3 H Plt Count 380 Sodium 134.5 L Potassium 3.1 L Chloride 105 Carbon Dioxide 19 L Anion Gap 11 BUN 9 Creatinine 1.03 Est GFR ( Amer) > 60 Est GFR (Non-Af Amer) > 60 Glucose 63 L Calcium 10.6 H Magnesium 1.1 L* Urine Color Urine Appearance Urine pH Ur Specific [place] Urine Protein Urine Glucose (UA) Urine Ketones Urine Blood Urine Nitrite Ur Leukocyte Esterase Ur Squamous Epith Cells Blood Type Antibody Screen 04/20/19 01:15 Clean Catch Midstream Urine Culture - Final NO GROWTH 2 DAYS Impressions: Chest X-Ray 04/19/19 16:10 IMPRESSION: Diffuse airspace opacity at the right lung with masslike consolidation at the right upper lobe and mediastinal shift to the right. Left lung nodules. Small right pleural effusion. CT thorax can help in further evaluation. Chest/Abdomen CTA 04/19/19 17:49 IMPRESSION: 1. Acute pulmonary embolus at the right main pulmonary artery. 2. Masslike consolidation at the right upper lobe extending into the right hilum and mediastinum, probably corresponding to patient's known malignancy. 3. Consolidation with air bronchograms at the right lower lobe, may be secondary to progression of malignancy versus pneumonia. 4. Nodular densities at the trachea and right mainstem bronchus, endobronchial lesions cannot be excluded. 5. Moderate right pleural effusion. 6. Multiple bilateral pulmonary nodules and mediastinal adenopathy, most consistent with metastatic disease. 7. Small pericardial effusion. 8. Diffuse chest wall edema. Bilateral gynecomastia. 9. Osseous metastatic lesion at the posterior aspect of T10 vertebral body. Contrast-enhanced MRI can help to evaluate for extension into the spinal canal. Abdomen/Pelvis CT 04/19/19 17:57 IMPRESSION: 1. Air-fluid levels throughout the small bowel, colon and at the rectum, may be seen with enterocolitis. 2. Mild colonic diverticulosis. 3. Osseous metastasis at T10 vertebral body. 4. 1.1 cm sclerotic lesion at the left acetabulum, indeterminate. Assessment & Plan - Diagnosis (1) Carcinoma of lung Qualifiers: Laterality: unspecified laterality Qualified Code(s): C34.90 - Malignant neoplasm of unspecified part of unspecified bronchus or lung Is this a current diagnosis for this admission?: Yes Plan: I reviewed records sent from [facility]. Hold all treatment for now. I will try to contact them with updates and discuss any other recommendations that they may have. Although it is difficult without actual images, the report from most recent CT at [facility] is similar to the CT report here, except for the acute PE. He has not recently been on any immunotherapy. Irinotecan usually causes profound diarrhea, which may have contributed to all his current symptoms. (2) Hypokalemia Is this a current diagnosis for this admission?: Yes Plan: Most likely due to diarrhea from the irinotecan. Replace. (3) Hypomagnesemia Is this a current diagnosis for this admission?: Yes Plan: Again, most likely due to the diarrhea from irinotecan. Use PO and IV replacement if possible. Usually 400-800 mg PO mag BID is used, if patient can tolerate this. (4) Pulmonary embolism Qualifiers: Pulmonary embolism type: other Chronicity: unspecified Acute cor pu lmonale presence: without acute cor pulmonale Qualified Code(s): I26.99 - Other pulmonary embolism without acute cor pulmonale Is this a current diagnosis for this admission?: Yes Plan: Agree with IV heparin for now. Watch HGB very closely for evidence of significant bleeding. Patient states that the hemoptysis has been minimal. - Plan Summary Plan Summary: I will try to reach his medical oncologist at [facility] for any further recommendations.
[2019-04-22] MEDS ORDERED: MAGNESIUM SULFATE/D5W 1 GM/100 ML RTUPB IV ONE (13:15)
[2019-04-22 16:40] LABS: ANION GAP 12 (5-19); BLOOD UREA NITROGEN 9 mg/dL (7-20); CALCIUM 10.4 mg/dL (8.4-10.2); CARBON DIOXIDE 17 mmol/L (22-30); CHLORIDE 103 mmol/L (98-107); GLUCOSE 122 mg/dL (75-110)
[2019-04-22] MEDS: AZITHROMYCIN 500 MG in DEXTROSE 5%-WATER 250 ML IV SCH (18:02)
--- NOTE | 2019-04-22 18:11 | PDOC PROGRESS REPORT ---
Subjective Progress Note for:: 04/22/19 Subjective:: The patient is a 44-year-old male, poor historian, but known to have a history of hypertension, DVT, metastatic lung cancer, DM type II, and tobacco dependency who was admitted 04/19/2019 for hypokalemia secondary to enterocolitis. Patient was seen on afternoon rounds. He was found resting in bed comfortably on room air. He reports improvement in frequency of bowel movements; only 2 today. He denies abdominal discomfort, nausea, and vomiting. He has been able to tolerate p.o. intake this morning. He denies chills, chest pain, palpitations, dyspnea, orthopnea. He expresses appreciation for reduction in bowel movements; states he is feeling much better. He has no other questions or concerns. No specific concerns per nursing. Reason For Visit: HYPOKALEMIA,ACUTE ENTERITIS,PNEUMONIA Physical Exam Vital Signs: Temp Pulse Resp BP Pulse Ox 98.9 F 108 H 18 125/71 100 04/22/19 11:36 04/22/19 16:12 04/22/19 16:12 04/22/19 11:36 04/22/19 16:12 Intake & Output 04/21/19 04/22/19 04/23/19 06:59 06:59 06:59 Intake Total 4820 6124 1099 Output Total 700 250 Balance 4820 5424 849 Weight 68.1 kg 71.7 kg General appearance: PRESENT: no acute distress, cooperative, well-developed, well-nourished Head exam: PRESENT: atraumatic, normocephalic Eye exam: PRESENT: conjunctiva pink, EOMI, PERRLA. ABSENT: scleral icterus Mouth exam: PRESENT: moist, tongue midline Teeth exam: PRESENT: poor dentation Neck exam: ABSENT: carotid bruit, JVD, lymphadenopathy, thyromegaly Respiratory exam: PRESENT: clear to auscultation emily, symmetrical, unlabored. ABSENT: rales, rhonchi, wheezes Cardiovascular exam: PRESENT: RRR, +S1, +S2, tachycardia - tachycardia; overall improved. ABSENT: diastolic murmur, rubs, systolic murmur Pulses: PRESENT: normal dorsalis pedis pul Vascular exam: PRESENT: normal capillary refill GI/Abdominal exam: PRESENT: normal bowel sounds, soft. ABSENT: distended, guarding, mass, organolmegaly, rebound, tenderness Rectal exam: PRESENT: deferred Extremities exam: PRESENT: full ROM. ABSENT: calf tenderness, clubbing, pedal edema Neurological exam: PRESENT: alert, awake, oriented to person, oriented to place, oriented to time, oriented to situation, CN II-XII grossly intact. ABSENT: motor sensory deficit Psychiatric exam: PRESENT: appropriate affect, normal mood. ABSENT: homicidal ideation, suicidal ideation Skin exam: PRESENT: dry, intact, warm. ABSENT: cyanosis, rash Results Laboratory Results: 04/22/19 06:20 04/22/19 15:14 04/21/19 04/22/19 04/22/19 08:14 05:00 06:20 WBC 6.3 RBC 2.89 L Hgb 8.9 L Hct 26.4 L MCV 92 MCH 30.7 MCHC 33.5 RDW 20.3 H Plt Count 380 Sodium Potassium Chloride Carbon Dioxide Anion Gap BUN Creatinine Est GFR ( Amer) Est GFR (Non-Af Amer) Glucose Calcium Magnesium Urine Color YELLOW Urine Appearance CLEAR Urine pH 5.0 Ur Specific [place] 1.013 Urine Protein NEGATIVE Urine Glucose (UA) NEGATIVE Urine Ketones NEGATIVE Urine Blood NEGATIVE Urine Nitrite NEGATIVE Ur Leukocyte Esterase NEGATIVE Ur Squamous Epith Cells RARE Blood Type B POSITIVE Antibody Screen NEGATIVE 04/22/19 04/22/19 06:20 15:14 WBC RBC Hgb Hct MCV MCH MCHC RDW Plt Count Sodium 134.5 L 131.5 L Potassium 3.1 L 3.0 L* Chloride 105 103 Carbon Dioxide 19 L 17 L Anion Gap 11 12 BUN 9 9 Creatinine 1.03 1.05 Est GFR ( Amer) > 60 > 60 Est GFR (Non-Af Amer) > 60 > 60 Glucose 63 L 122 H Calcium 10.6 H 10.4 H Magnesium 1.1 L* Urine Color Urine Appearance Urine pH Ur Specific [place] Urine Protein Urine Glucose (UA) Urine Ketones Urine Blood Urine Nitrite Ur Leukocyte Esterase Ur Squamous Epith Cells Blood Type Antibody Screen 04/20/19 01:15 Clean Catch Midstream Urine Culture - Final NO GROWTH 2 DAYS Impressions: Chest X-Ray 04/19/19 16:10 IMPRESSION: Diffuse airspace opacity at the right lung with masslike consolidation at the right upper lobe and mediastinal shift to the right. Left lung nodules. Small right pleural effusion. CT thorax can help in further evaluation. Chest/Abdomen CTA 04/19/19 17:49 IMPRESSION: 1. Acute pulmonary embolus at the right main pulmonary artery. 2. Masslike consolidation at the right upper lobe extending into the right hilum and mediastinum, probably corresponding to patient's known malignancy. 3. Consolidation with air bronchograms at the right lower lobe, may be secondary to progression of malignancy versus pneumonia. 4. Nodular densities at the trachea and right mainstem bronchus, endobronchial lesions cannot be excluded. 5. Moderate right pleural effusion. 6. Multiple bilateral pulmonary nodules and mediastinal adenopathy, most consistent with metastatic disease. 7. Small pericardial effusion. 8. Diffuse chest wall edema. Bilateral gynecomastia. 9. Osseous metastatic lesion at the posterior aspect of T10 vertebral body. Contrast-enhanced MRI can help to evaluate for extension into the spinal canal. Abdomen/Pelvis CT 04/19/19 17:57 IMPRESSION: 1. Air-fluid levels throughout the small bowel, colon and at the rectum, may be seen with enterocolitis. 2. Mild colonic diverticulosis. 3. Osseous metastasis at T10 vertebral body. 4. 1.1 cm sclerotic lesion at the left acetabulum, indeterminate. Assessment and Plan - Diagnosis (1) Hypokalemia Is this a current diagnosis for this admission?: Yes Plan: Improved. Secondary to poor p.o. intake and GI losses Magnesium was low at 1:1.; this is been replaced. Patient is receiving scheduled 40 mg p.o. potassium daily (home dose) Have provided additional p.o. potassium today; anticipate this will improve as diarrhea decreases We will continue to monitor serial chemistries and replace as indicated. (2) Hypomagnesemia Is this a current diagnosis for this admission?: Yes Plan: Mag 1.2-> 2.0-> 1.1 Secondary to poor p.o. intake and GI losses; frequent diarrhea related to recent chemotherapy treatment. Anticipate this will improve as diarrhea resolves Provided additional IV magnesium today (3) Enterocolitis Is this a current diagnosis for this admission?: Yes Plan: Improved; per patient report only 2 bm's today. Likely secondary to chemotherapy treatment. C. difficile PCR is negative. Hemoccult is negative. Stool is negative for WBCs. Stool culture is pending. Continue IV fluids and supportive care. Continue lactobacillus and Imodium. Consider addition of lomotil (4) Carcinoma of lung Qualifiers: Laterality: unspecified laterality Qualified Code(s): C34.90 - Malignant neoplasm of unspecified part of unspecified bronchus or lung Is this a current diagnosis for this admission?: Yes Plan: No acute care for this problem; symptomatic and supportive care. Continue the patient's outpatient pain medication regiment. Patient was able to contact his floor runner; she has faxed over recent medical records and chest imaging. Dr. Reynolds consulted to assist with management; appreciate her evaluation and recommendations. (5) Diabetes mellitus type 2 in nonobese Is this a current diagnosis for this admission?: Yes Plan: A1c is 6.5%. He is placed on a consistent carb/cardiac diet. Continue Lantus 5 units twice daily and sliding scale coverage. Hypoglycemia protocol is in place. (6) Essential hypertension Is this a current diagnosis for this admission?: Yes Plan: Patient endorses a history of hypertension. Blood pressures have been somewhat elevated but overall acceptable today. Consistent carb/cardiac diet. Continue home dose carvedilol. (7) Infiltrate of right lung present on chest x-ray Is this a current diagnosis for this admission?: Yes Plan: TMax 101.6 last 24 hours. He has had tachypnea, overall improved (28->18), but does remain tachycardic with a heart rate of 110-125. Chest x-ray and CTA of the chest concerning for consolidation with air bronchograms at the right lower lobe; possible secondary to progression of his malignancy versus pneumonia. Patient does have a normal WBC and acceptable ANC. Blood cultures are negative at 72 hours. Sputum cultures show c. albicans. The patient has empirically been placed on IV azithromycin, vancomycin, and Zosyn for treatment of healthcare associated pneumonia in an immunocompromised patient. Will adjust antibiotics as cultures result. Will plan on discontinuing Vancomycin tomorrow if patient's temp, WBCs, and BCx remain nml. Have consulted hematology/oncology for assistance. Low threshold for pulmonology consultation. Supplemental oxygen as needed to maintain saturations greater than 90%. Scheduled and as needed nebulizer treatments. Pulmicort nebs twice daily. Mucomyst nebs twice daily. Tylenol as needed for fever. Incentive spirometer and flutter valve to bedside. (8) Pulmonary embolism Qualifiers: Pulmonary embolism type: other Chronicity: unspecified Acute cor pulmonale presence: without acute cor pulmonale Qualified Code(s): I26.99 - Other pulmonary embolism without acute cor pulmonale Is this a current diagnosis for this admission?: Yes Plan: Patient has been placed on a heparin protocol for pulmonary embolism. Patient's primary nurse was able to discuss the patient's case with his floor runner at [facility]. Patient was previously on Xarelto for treatment of a right arm DVT. Patient reports that he stopped the Xarelto approximately 1 week prior to admission due to development of hemoptysis. Per navigator, patient has no known history of pulmonary embolus. He does have an IVC filter in place. Continue to provide supplemental oxygen as needed to maintain saturations. Continue heparin drip. Hematology/oncology has been consulted; appreciate Dr. Perdomo's assistance. Discussed with Dr. Hylton today. She recommends contacting the patient's oncologist for chronic anticoagulation recommendations. We will plan on calling them tomorrow during office hours. Anticipate resumption of Xarelto versus start of Eliquis at discharge. (9) Tobacco use disorder, severe, dependence Is this a current diagnosis for this admission?: Yes Plan: Smoking cessation has been advised. A nicotine replacement patch will be available for the patient's use. (10) Anemia Qualifiers: Anemia type: unspecified type Qualified Code(s): D64.9 - Anemia, unspecified Is this a current diagnosis for this admission?: Yes Plan: Likely multifactorial secondary to Poor nutrition, malignancy, and hemodilution (patient has received approximately 10 L of IV fluid since admission). Hgb 9.9-> 7.3-> 8.9 (s/p 1 unit PRBC) Urinalysis and Hemoccult are negative for blood. Does have slight hemoptysis (blood-streaked sputum). Heme/Onc consulted. We will monitor CBC and transfuse for hemoglobin less than 8. - Time Time Spent with patient: 25-34 minutes Medications reviewed and adjusted accordingly: Yes Anticipated discharge: Home Within: within 48 hours
[2019-04-22] MEDS ORDERED: VANCOMYCIN HCL 1,000 MG in DEXTROSE 5%-WATER 250 ML IV SCH (19:00)
[2019-04-22] MEDS: LEVALBUTEROL HCL NEB 0.63 MG/3 ML AMPUL NEB PRN (20:27)
[2019-04-23] MEDS: PIPERACILLIN SODIUM/TAZOBACTAM 3.375 GM in NORMAL SALINE 100 ML IV SCH ×4 (00:13→20:08)
[2019-04-23] MEDS: IPRATROPIUM BROMIDE 0.02% NEB 0.5 MG/2.5 ML AMPUL NEB SCH ×2 (00:27→11:25)
[2019-04-23] MEDS: LEVALBUTEROL HCL NEB 1.25 MG/3 ML AMPUL NEB SCH ×2 (00:28→11:25)
[2019-04-23] MEDS ORDERED: VANCOMYCIN HCL 1,000 MG in DEXTROSE 5%-WATER 250 ML IV SCH (02:00)
[2019-04-23 06:50] LABS: MEAN CORPUSCULAR HEMOGLOBIN 30.9 pg (27.0-33.4); MEAN CORPUSCULAR HGB CONC 34.1 g/dL (32.0-36.0); MEAN CORPUSCULAR VOLUME 91 fl (80-97); PLATELET COUNT 339 10^3/uL (150-450); RED BLOOD COUNT 2.42 10^6/uL (4.35-5.55); WHITE BLOOD COUNT 5.1 10^3/uL (4.0-10.5)
[2019-04-23 06:52] LABS: HEMOGLOBIN 7.5 g/dL (13.5-17.0)
[2019-04-23] MEDS: OXYCODONE HCL IR 5 MG TABLET PO PRN ×2 (07:08→20:08)
[2019-04-23 07:13] LABS: ANION GAP 11 (5-19); BLOOD UREA NITROGEN 9 mg/dL (7-20); CALCIUM 9.8 mg/dL (8.4-10.2); CARBON DIOXIDE 19 mmol/L (22-30); CHLORIDE 101 mmol/L (98-107); GLUCOSE 168 mg/dL (75-110); POTASSIUM 3.2 mmol/L (3.6-5.0)
--- NOTE | 2019-04-23 07:16 | PDOC PROGRESS REPORT ---
Subjective Progress Note for:: 04/23/19 Subjective:: Patient denies new complaints today. However, he is requesting to get up to bedside commode. Nurses report this is the first BM today. Yesterday, only 2 BMs. He does have some back pain, but is not cooperative this morning. Reason For Visit: HYPOKALEMIA,ACUTE ENTERITIS,PNEUMONIA Physical Exam Vital Signs: Temp Pulse Resp BP Pulse Ox 98.4 F 117 H 26 H 121/58 L 98 04/23/19 03:25 04/23/19 03:25 04/23/19 03:25 04/23/19 03:25 04/23/19 03:25 Intake & Output 04/22/19 04/23/19 04/24/19 06:59 06:59 06:59 Intake Total 6124 3857 Output Total 700 925 Balance 5424 2932 Weight 71.7 kg 71 kg General appearance: PRESENT: well-developed, well-nourished Head exam: PRESENT: normocephalic Respiratory exam: PRESENT: unlabored Neurological exam: PRESENT: alert, awake Psychiatric exam: PRESENT: appropriate affect Skin exam: PRESENT: normal color Results Laboratory Results: 04/23/19 06:20 04/22/19 04/22/19 04/22/19 05:00 06:20 15:14 WBC RBC Hgb Hct MCV MCH MCHC RDW Plt Count Sodium 134.5 L 131.5 L Potassium 3.1 L 3.0 L* Chloride 105 103 Carbon Dioxide 19 L 17 L Anion Gap 11 12 BUN 9 9 Creatinine 1.03 1.05 Est GFR ( Amer) > 60 > 60 Est GFR (Non-Af Amer) > 60 > 60 Glucose 63 L 122 H Calcium 10.6 H 10.4 H Magnesium 1.1 L* Urine Color YELLOW Urine Appearance CLEAR Urine pH 5.0 Ur Specific [place] 1.013 Urine Protein NEGATIVE Urine Glucose (UA) NEGATIVE Urine Ketones NEGATIVE Urine Blood NEGATIVE Urine Nitrite NEGATIVE Ur Leukocyte Esterase NEGATIVE Ur Squamous Epith Cells RARE 04/23/19 06:20 WBC 5.1 RBC 2.42 L Hgb 7.5 L Hct 22.0 L MCV 91 MCH 30.9 MCHC 34.1 RDW 20.0 H Plt Count 339 Sodium Potassium Chloride Carbon Dioxide Anion Gap BUN Creatinine Est GFR ( Amer) Est GFR (Non-Af Amer) Glucose Calcium Magnesium Urine Color Urine Appearance Urine pH Ur Specific [place] Urine Protein Urine Glucose (UA) Urine Ketones Urine Blood Urine Nitrite Ur Leukocyte Esterase Ur Squamous Epith Cells 04/20/19 01:15 Clean Catch Midstream Urine Culture - Final NO GROWTH 2 DAYS Impressions: Chest X-Ray 04/19/19 16:10 IMPRESSION: Diffuse airspace opacity at the right lung with masslike consolidation at the right upper lobe and mediastinal shift to the right. Left lung nodules. Small right pleural effusion. CT thorax can help in further evaluation. Chest/Abdomen CTA 04/19/19 17:49 IMPRESSION: 1. Acute pulmonary embolus at the right main pulmonary artery. 2. Masslike consolidation at the right upper lobe extending into the right hilum and mediastinum, probably corresponding to patient's known malignancy. 3. Consolidation with air bronchograms at the right lower lobe, may be secondary to progression of malignancy versus pneumonia. 4. Nodular densities at the trachea and right mainstem bronchus, endobronchial lesions cannot be excluded. 5. Moderate right pleural effusion. 6. Multiple bilateral pulmonary nodules and mediastinal adenopathy, most consistent with metastatic disease. 7. Small pericardial effusion. 8. Diffuse chest wall edema. Bilateral gynecomastia. 9. Osseous metastatic lesion at the posterior aspect of T10 vertebral body. Contrast-enhanced MRI can help to evaluate for extension into the spinal canal. Abdomen/Pelvis CT 04/19/19 17:57 IMPRESSION: 1. Air-fluid levels throughout the small bowel, colon and at the rectum, may be seen with enterocolitis. 2. Mild colonic diverticulosis. 3. Osseous metastasis at T10 vertebral body. 4. 1.1 cm sclerotic lesion at the left acetabulum, indeterminate. Assessment & Plan - Diagnosis (1) Carcinoma of lung Qualifiers: Laterality: unspecified laterality Qualified Code(s): C34.90 - Malignant neoplasm of unspecified part of unspecified bronchus or lung Is this a current diagnosis for this admission?: Yes Plan: All chemo on hold during this admission. I have not yet been able to call his [facility] oncology team. Diarrhea most likely due to irinotecan. (2) Hypokalemia Is this a current diagnosis for this admission?: Yes Plan: Continue replacement and treatment of diarrhea (3) Hypomagnesemia Is this a current diagnosis for this admission?: Yes Plan: Replace. Treat diarrhea. (4) Pulmonary embolism Qualifiers: Pulmonary embolism type: other Chronicity: unspecified Acute cor pulmonale presence: without acute cor pulmonale Qualified Code(s): I26.99 - Other pulmonary embolism without acute cor pulmonale Is this a current diagnosis for this admission?: Yes Plan: Continue Heparin drip for now. I would defer further treatment of the PE to his primary oncology team. It is difficult to say if he truly failed prior treatment, as this has been held due to bleeding at times. Monitor hemoptysis and transfuse as needed.
[2019-04-23] MEDS ORDERED: NORMAL SALINE 250 ML IV PRN ×2 (07:47)
[2019-04-23] MEDS ORDERED: POTASSIUM CHLORIDE 20 MEQ PACKET PO ONE (07:48)
[2019-04-23] MEDS: INSULIN LISPRO 100 UNIT/ML 3 ML VIAL SUBCUT SCH ×4 (08:37→22:16)
[2019-04-23] MEDS: PREDNISONE 10 MG TABLET PO SCH (08:37)
[2019-04-23] MEDS: INSULIN GLARGINE,HUM.REC.ANLOG 1,000 UNIT/10 ML VIAL SUBCUT SCH ×2 (08:38→22:17)
[2019-04-23] MEDS: DOCUSATE SODIUM 100 MG CAPSULE PO SCH ×2 (09:18→17:02)
[2019-04-23] MEDS: ONDANSETRON HCL INJ/PF 4 MG/2 ML SDV IV PRN ×2 (09:26→20:08)
[2019-04-23] MEDS: PANTOPRAZOLE SODIUM 40 MG VIAL IV SCH ×2 (09:26→22:16)
[2019-04-23] MEDS: LACTOBACILLUS ACIDOPHILUS 250 MG TAB PO SCH ×2 (09:26→17:04)
[2019-04-23] MEDS: MORPHINE SULFATE SR 30 MG TABLET PO SCH ×2 (09:26→22:16)
[2019-04-23] MEDS: CARVEDILOL 6.25 MG TABLET PO SCH ×2 (09:26→22:16)
[2019-04-23] MEDS ORDERED: MAGNESIUM SULFATE 4 GM/100 ML RTUPB IV ONE (10:00)
[2019-04-23] MEDS: BUDESONIDE NEB 0.5 MG/2 ML AMPUL NEB SCH (11:25)
[2019-04-23] MEDS: ACETYLCYSTEINE 20% SOLN 800 MG/4 ML VIAL.NEB NEB SCH ×2 (11:25→11:27)
[2019-04-23 12:09] LABS: APPEARANCE,URINE CLEAR; BILIRUBIN,URINE NEGATIVE (NEGATIVE); COLOR,URINE YELLOW; GLUCOSE, URINE 50 mg/dL (NEGATIVE); KETONES,URINE NEGATIVE (NEGATIVE); LEUKOCYTE ESTERASE,URINE NEGATIVE (NEGATIVE); NITRITE,URINE NEGATIVE (NEGATIVE); PROTEIN,URINE NEGATIVE (NEGATIVE); URINE SPECIFIC GRAVITY 1.017; UROBILINOGEN,URINE NEGATIVE mg/dL (<2.0)
[2019-04-23] MEDS: HEPARIN SODIUM,PORCINE/D5W 25,000 UNIT/250 ML RTUINJ IV PRN (13:07)
--- NOTE | 2019-04-23 19:35 | PDOC PROGRESS REPORT ---
Subjective Progress Note for:: 04/23/19 Subjective:: The patient is a 44-year-old male, poor historian, but known to have a history of hypertension, DVT, metastatic lung cancer, DM type II, and tobacco dependency who was admitted 04/19/2019 for hypokalemia secondary to enterocolitis. Patient was seen on afternoon rounds. He was found resting in bed comfortably on room air. He reports decreased frequency of bowel movements; only 1 overnight. He denies abdominal discomfort, nausea, and vomiting. He has been able to tolerate p.o. intake this morning. Overall, he is feeling much improved and is asking about anticipated discharge to home. He denies fever, chills, chest pain, palpitations, dyspnea, orthopnea and cough. He has no other questions or concerns. No specific concerns per nursing. Reason For Visit: HYPOKALEMIA,ACUTE ENTERITIS,PNEUMONIA Physical Exam Vital Signs: Temp Pulse Resp BP Pulse Ox 98.4 F 96 14 136/72 H 99 04/23/19 17:05 04/23/19 17:05 04/23/19 17:05 04/23/19 17:05 04/23/19 17:05 Intake & Output 04/22/19 04/23/19 04/24/19 06:59 06:59 06:59 Intake Total 6124 3857 443 Output Total 700 925 Balance 5424 2932 443 Weight 71.7 kg 71 kg General appearance: PRESENT: no acute distress, cooperative, thin, well- developed Head exam: PRESENT: atraumatic, normocephalic Eye exam: PRESENT: conjunctiva pink, EOMI, PERRLA. ABSENT: scleral icterus Ear exam: PRESENT: normal external ear exam Mouth exam: PRESENT: moist, tongue midline Neck exam: ABSENT: carotid bruit, JVD, lymphadenopathy, thyromegaly Respiratory exam: PRESENT: clear to auscultation emily, symmetrical, unlabored. ABSENT: rales, rhonchi, wheezes Cardiovascular exam: PRESENT: RRR, +S1, +S2, tachycardia. ABSENT: diastolic murmur, rubs, systolic murmur Pulses: PRESENT: normal dorsalis pedis pul Vascular exam: PRESENT: normal capillary refill GI/Abdominal exam: PRESENT: normal bowel sounds, soft. ABSENT: distended, guarding, mass, organolmegaly, rebound, tenderness Rectal exam: PRESENT: deferred Extremities exam: PRESENT: full ROM. ABSENT: calf tenderness, clubbing, pedal edema Neurological exam: PRESENT: alert, awake, oriented to person, oriented to place, oriented to time, oriented to situation, CN II-XII grossly intact. ABSENT: motor sensory deficit Psychiatric exam: PRESENT: appropriate affect, normal mood. ABSENT: homicidal ideation, suicidal ideation Skin exam: PRESENT: dry, intact, warm. ABSENT: cyanosis, rash Results Laboratory Results: 04/23/19 06:20 04/21/19 04/23/19 04/23/19 08:14 06:20 06:20 WBC 5.1 RBC 2.42 L Hgb 7.5 L Hct 22.0 L MCV 91 MCH 30.9 MCHC 34.1 RDW 20.0 H Plt Count 339 Sodium 130.6 L Potassium 3.2 L Chloride 101 Carbon Dioxide 19 L Anion Gap 11 BUN 9 Creatinine 1.00 Est GFR ( Amer) > 60 Est GFR (Non-Af Amer) > 60 Glucose 168 H Calcium 9.8 Magnesium 1.0 L* Urine Color Urine Appearance Urine pH Ur Specific [place] Urine Protein Urine Glucose (UA) Urine Ketones Urine Blood Urine Nitrite Ur Leukocyte Esterase Urine WBC (Auto) Urine RBC (Auto) Stool Occult Blood Blood Type B POSITIVE Antibody Screen NEGATIVE 04/23/19 04/23/19 11:40 15:37 WBC RBC Hgb Hct MCV MCH MCHC RDW Plt Count Sodium Potassium Chloride Carbon Dioxide Anion Gap BUN Creatinine Est GFR ( Amer) Est GFR (Non-Af Amer) Glucose Calcium Magnesium Urine Color YELLOW Urine Appearance CLEAR Urine pH 5.0 Ur Specific [place] 1.017 Urine Protein NEGATIVE Urine Glucose (UA) 50 H Urine Ketones NEGATIVE Urine Blood NEGATIVE Urine Nitrite NEGATIVE Ur Leukocyte Esterase NEGATIVE Urine WBC (Auto) 2 Urine RBC (Auto) 0 Stool Occult Blood NEGATIVE Blood Type Antibody Screen 04/21/19 16:10 Sputum Gram Stain - Final 04/21/19 16:10 Sputum Sputum Culture - Final C.albicans/C.dubliniensis Normal Erick Impressions: Chest X-Ray 04/19/19 16:10 IMPRESSION: Diffuse airspace opacity at the right lung with masslike consolidation at the right upper lobe and mediastinal shift to the right. Left lung nodules. Small right pleural effusion. CT thorax can help in further evaluation. Chest/Abdomen CTA 04/19/19 17:49 IMPRESSION: 1. Acute pulmonary embolus at the right main pulmonary artery. 2. Masslike consolidation at the right upper lobe extending into the right hilum and mediastinum, probably corresponding to patient's known malignancy. 3. Consolidation with air bronchograms at the right lower lobe, may be secondary to progression of malignancy versus pneumonia. 4. Nodular densities at the trachea and right mainstem bronchus, endobronchial lesions cannot be excluded. 5. Moderate right pleural effusion. 6. Multiple bilateral pulmonary nodules and mediastinal adenopathy, most consistent with metastatic disease. 7. Small pericardial effusion. 8. Diffuse chest wall edema. Bilateral gynecomastia. 9. Osseous metastatic lesion at the posterior aspect of T10 vertebral body. Contrast-enhanced MRI can help to evaluate for extension into the spinal canal. Abdomen/Pelvis CT 04/19/19 17:57 IMPRESSION: 1. Air-fluid levels throughout the small bowel, colon and at the rectum, may be seen with enterocolitis. 2. Mild colonic diverticulosis. 3. Osseous metastasis at T10 vertebral body. 4. 1.1 cm sclerotic lesion at the left acetabulum, indeterminate. Assessment and Plan - Diagnosis (1) Hypokalemia Is this a current diagnosis for this admission?: Yes Plan: Improved. Secondary to poor p.o. intake and GI losses Magnesium low; have replaced. Patient is receiving scheduled 40 mg p.o. potassium daily (home dose) Have provided additional p.o. potassium again today; anticipate this will improve as diarrhea decreases We will continue to monitor serial chemistries and replace as indicated. (2) Hypomagnesemia Is this a current diagnosis for this admission?: Yes Plan: Mag 1.2-> 2.0-> 1.1 Secondary to poor p.o. intake and GI losses; frequent diarrhea related to recent chemotherapy treatment. Anticipate this will improve as diarrhea resolves Provided additional IV magnesium today Will start on oral supplementation as well (3) Enterocolitis Is this a current diagnosis for this admission?: Yes Plan: Improved Likely secondary to chemotherapy treatment. C. difficile PCR is negative. Hemoccult is negative. Stool is negative for WBCs. Stool culture is pending. Continue lactobacillus and Imodium. Consider addition of lomotil (4) Carcinoma of lung Qualifiers: Laterality: unspecified laterality Qualified Code(s): C34.90 - Malignant neoplasm of unspecified part of unspecified bronchus or lung Is this a current diagnosis for this admission?: Yes Plan: No acute care for this problem; symptomatic and supportive care. Continue the patient's outpatient pain medication regiment. 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 Dr. Reynolds consulted to assist with management; appreciate her evaluation and recommendations. (5) Diabetes mellitus type 2 in nonobese Is this a current diagnosis for this admission?: Yes Plan: A1c is 6.5%. He is placed on a consistent carb/cardiac diet. Continue Lantus 5 units twice daily and sliding scale coverage. Hypoglycemia protocol is in place. (6) Essential hypertension Is this a current diagnosis for this admission?: Yes Plan: Patient endorses a history of hypertension; overall acceptable today. Consistent carb/cardiac diet. Continue home dose carvedilol. (7) Infiltrate of right lung present on chest x-ray Is this a current diagnosis for this admission?: Yes Plan: Afebrile x 48 hours He has had tachypnea, overall improved (28->18), tachycardia is improved Chest x-ray and CTA of the chest concerning for consolidation with air bronch ograms at the right lower lobe; possible secondary to progression of his malignancy versus pneumonia. Patient does have a normal WBC and acceptable ANC. Blood cultures are negative at 4 days. Sputum cultures show c. albicans and normal respiratory erick. The patient has empirically been placed on IV azithromycin, vancomycin, and Zosyn for treatment of healthcare associated pneumonia in an immunocompromised patient. Discontinue Vancomycin today; recieved 4 days therapy Have consulted hematology/oncology for assistance. Low threshold for pulmonology consultation. Supplemental oxygen as needed to maintain saturations greater than 90%. Scheduled and as needed nebulizer treatments. As needed nebs Tylenol as needed for fever. Incentive spirometer and flutter valve to bedside. (8) Pulmonary embolism Qualifiers: Pulmonary embolism type: other Chronicity: unspecified Acute cor pulmonale presence: without acute cor pulmonale Qualified Code(s): I26.99 - Other pulmonary embolism without acute cor pulmonale Is this a current diagnosis for this admission?: Yes Plan: Patient has been placed on a heparin protocol for pulmonary embolism. Patient's primary nurse was able to discuss the patient's case with his assistant restaurant general manager at [facility]. Patient was previously on Xarelto for treatment of a right arm DVT. Patient reports that he stopped the Xarelto approximately 1 week prior to admission due to development of hemoptysis. He does have an IVC filter in place. Continue to provide supplemental oxygen as needed to maintain saturations. Continue heparin drip. Will discuss with patients oncologist for recommendation of anticoagulant therapy. (9) Tobacco use disorder, severe, dependence Is this a current diagnosis for this admission?: Yes Plan: Smoking cessation has been advised. A nicotine replacement patch will be available for the patient's use. (10) Anemia Qualifiers: Anemia type: unspecified type Qualified Code(s): D64.9 - Anemia, unspec ified Is this a current diagnosis for this admission?: Yes Plan: Likely multifactorial secondary to Poor nutrition, malignancy, and hemodilution (patient has received approximately 10 L of IV fluid since admission). Hgb 9.9-> 7.3-> 8.9 (s/p 1 unit PRBC)-> 7.5 Urinalysis and Hemoccult are negative for blood; recheck today again negative Does have slight hemoptysis (blood-streaked sputum); resolved per patient Heme/Onc consulted. Will provide an additional 1 unit PRBC today We will monitor CBC and transfuse for hemoglobin less than 8. - Time Time Spent with patient: 35 or more minutes Medications reviewed and adjusted accordingly: Yes Anticipated discharge: Home Within: within 48 hours
[2019-04-23] MEDS: NORMAL SALINE 1000 ML 1,000 ML IV PRN (20:13)
[2019-04-23 20:57] LABS: ANION GAP 9 (5-19); BLOOD UREA NITROGEN 7 mg/dL (7-20); CALCIUM 11.2 mg/dL (8.4-10.2); CARBON DIOXIDE 21 mmol/L (22-30); CHLORIDE 101 mmol/L (98-107); GLUCOSE 121 mg/dL (75-110); POTASSIUM 3.3 mmol/L (3.6-5.0)
[2019-04-23] MEDS ORDERED: AZITHROMYCIN 500 MG in DEXTROSE 5%-WATER 250 ML IV SCH (22:00)
[2019-04-24] MEDS: PIPERACILLIN SODIUM/TAZOBACTAM 3.375 GM in NORMAL SALINE 100 ML IV SCH ×3 (00:52→12:51)
[2019-04-24] MEDS: NORMAL SALINE 1000 ML 1,000 ML IV PRN (03:48)
[2019-04-24] MEDS: HEPARIN SODIUM,PORCINE/D5W 25,000 UNIT/250 ML RTUINJ IV PRN (05:26)
[2019-04-24 06:56] LABS: APPEARANCE,URINE CLEAR; BILIRUBIN,URINE NEGATIVE (NEGATIVE); COLOR,URINE STRAW; GLUCOSE, URINE NEGATIVE (NEGATIVE); KETONES,URINE NEGATIVE (NEGATIVE); LEUKOCYTE ESTERASE,URINE NEGATIVE (NEGATIVE); NITRITE,URINE NEGATIVE (NEGATIVE); PROTEIN,URINE NEGATIVE (NEGATIVE); URINE SPECIFIC GRAVITY 1.009; UROBILINOGEN,URINE NEGATIVE mg/dL (<2.0)
[2019-04-24 07:08] LABS: HEMATOCRIT 25.2 % (37.9-51.0); HEMOGLOBIN 8.7 g/dL (13.5-17.0); MEAN CORPUSCULAR HEMOGLOBIN 30.9 pg (27.0-33.4); MEAN CORPUSCULAR HGB CONC 34.4 g/dL (32.0-36.0); MEAN CORPUSCULAR VOLUME 90 fl (80-97); PLATELET COUNT 369 10^3/uL (150-450); RED BLOOD COUNT 2.81 10^6/uL (4.35-5.55); RED CELL DISTRIBUTION WIDTH 18.8 % (11.5-14.0); WHITE BLOOD COUNT 5.8 10^3/uL (4.0-10.5)
--- NOTE | 2019-04-24 08:20 | PDOC PROGRESS REPORT ---
Subjective Subjective:: This is a 44 y/o male with significant history of small cell lung carcinoma with mets and was being treated for SVC syndrome, he has a previous history of HTN, DVT, IVC filter placement, and was taking Xarelto for this. He also reports a history of a brain mass with surgical removal/craniotomy 11/2018. Upon reviewing records from [facility] that patient was admitted there on 12/11 with infection of the craniotomy and epidural abscess and was treated for meningitis. Patient was admitted here on 04/19/2019 for a 2 day history of diarrhea and intermittent abdominal pain that improves with "passing air". He reports nausea without vomiting, and poor diet. On review of dietary intake his intake is sporadic, and his intake is anywhere from 25% to 75% of meals. His last diarrhea bowel movement was on 04/21/2019. On admission he reported that he had chemotherapy treatment 2 days prior to arriving in the ED and that it commonly causes diarrhea, but this was worse than those times. His lab work revealed hypokalemia of 2.8 for which he was received IV and oral replacements. He had a CTA of the abdomen and pelvis which was consistent for acute enterocolitis. His potassium this morning was 3.1, and magnesium of 1.1. He received oral potassium of 40 meq. liquid. He also received 1 gm magnesium IVPB to correct the electrolyte imbalances. on rounds this morning, patient was found to be sitting with HOB in bed. His potassium was 3.2 and magnesium was 1.0, we ordered potassium Reason For Visit: HYPOKALEMIA,ACUTE ENTERITIS,PNEUMONIA Physical Exam Vital Signs: Temp Pulse Resp BP Pulse Ox 98.4 F 120 H 19 121/58 L 95 04/23/19 03:25 04/23/19 11:25 04/23/19 11:25 04/23/19 03:25 04/23/19 11:25 Intake & Output 04/22/19 04/23/19 04/24/19 06:59 06:59 06:59 Intake Total 6124 3857 243 Output Total 644 925 Balance 5480 2932 243 Weight 71.7 kg 71 kg General appearance: PRESENT: no acute distress Eye exam: PRESENT: conjunctiva pink Ear exam: PRESENT: normal external ear exam Mouth exam: PRESENT: dry mucosa Respiratory exam: PRESENT: clear to auscultation emily, symmetrical Cardiovascular exam: PRESENT: +S1, +S2, tachycardia Pulses: PRESENT: +2 pedal pulses bilateral Vascular exam: PRESENT: normal capillary refill GI/Abdominal exam: PRESENT: diminished bowel sounds, soft Rectal exam: PRESENT: deferred Neurological exam: PRESENT: alert, awake, oriented to person, oriented to place, oriented to time, oriented to situation Psychiatric exam: PRESENT: flat affect Skin exam: PRESENT: dry, warm Results Laboratory Results: 04/23/19 06:20 04/23/19 06:20 04/21/19 04/22/19 04/23/19 08:14 15:14 06:20 WBC 5.1 RBC 2.42 L Hgb 7.5 L Hct 22.0 L MCV 91 MCH 30.9 MCHC 34.1 RDW 20.0 H Plt Count 339 Sodium 131.5 L Potassium 3.0 L* Chloride 103 Carbon Dioxide 17 L Anion Gap 12 BUN 9 Creatinine 1.05 Est GFR ( Amer) > 60 Est GFR (Non-Af Amer) > 60 Glucose 122 H Calcium 10.4 H Magnesium Urine Color Urine Appearance Urine pH Ur Specific [place] Urine Protein Urine Glucose (UA) Urine Ketones Urine Blood Urine Nitrite Ur Leukocyte Esterase Urine WBC (Auto) Urine RBC (Auto) Blood Type B POSITIVE Antibody Screen NEGATIVE 04/23/19 04/23/19 06:20 11:40 WBC RBC Hgb Hct MCV MCH MCHC RDW Plt Count Sodium 130.6 L Potassium 3.2 L Chloride 101 Carbon Dioxide 19 L Anion Gap 11 BUN 9 Creatinine 1.00 Est GFR ( Amer) > 60 Est GFR (Non-Af Amer) > 60 Glucose 168 H Calcium 9.8 Magnesium 1.0 L* Urine Color YELLOW Urine Appearance CLEAR Urine pH 5.0 Ur Specific [place] 1.017 Urine Protein NEGATIVE Urine Glucose (UA) 50 H Urine Ketones NEGATIVE Urine Blood NEGATIVE Urine Nitrite NEGATIVE Ur Leukocyte Esterase NEGATIVE Urine WBC (Auto) 2 Urine RBC (Auto) 0 Blood Type Antibody Screen 04/21/19 16:10 Sputum Gram Stain - Final 04/21/19 16:10 Sputum Sputum Culture - Final C.albicans/C.dubliniensis Normal Shante 04/20/19 01:15 Clean Catch Midstream Urine Culture - Final NO GROWTH 2 DAYS Impressions: Chest X-Ray 04/19/19 16:10 IMPRESSION: Diffuse airspace opacity at the right lung with masslike consolidation at the right upper lobe and mediastinal shift to the right. Left lung nodules. Small right pleural effusion. CT thorax can help in further evaluation. Chest/Abdomen CTA 04/19/19 17:49 IMPRESSION: 1. Acute pulmonary embolus at the right main pulmonary artery. 2. Masslike consolidation at the right upper lobe extending into the right hilum and mediastinum, probably corresponding to patient's known malignancy. 3. Consolidation with air bronchograms at the right lower lobe, may be secondary to progression of malignancy versus pneumonia. 4. Nodular densities at the trachea and right mainstem bronchus, endobronchial lesions cannot be excluded. 5. Moderate right pleural effusion. 6. Multiple bilateral pulmonary nodules and mediastinal adenopathy, most consistent with metastatic disease. 7. Small pericardial effusion. 8. Diffuse chest wall edema. Bilateral gynecomastia. 9. Osseous metastatic lesion at the posterior aspect of T10 vertebral body. Contrast-enhanced MRI can help to evaluate for extension into the spinal canal. Abdomen/Pelvis CT 04/19/19 17:57 IMPRESSION: 1. Air-fluid levels throughout the small bowel, colon and at the rectum, may be seen with enterocolitis. 2. Mild colonic diverticulosis. 3. Osseous metastasis at T10 vertebral body. 4. 1.1 cm sclerotic lesion at the left acetabulum, indeterminate. Assessment and Plan - Diagnosis (1) Hypokalemia Is this a current diagnosis for this admission?: Yes Plan: Potassium is 3.2 this am, will give oral potassium 40meq and recheck potassium this afternoon and replace as needed. (2) Enterocolitis Is this a current diagnosis for this admission?: Yes Plan: Patients diarrhea resolving, has only had one soft formed stool in past 24 hours and hasn't needed immodium in 2 days, he continues to c/o occasional nausea that is releived with antiemetics. His abdomen is soft with hypoactive bowel sounds. Electrolytes continue to be affected, will check electrolytes for imbalances and replace as necessary. (3) Anemia Qualifiers: Anemia type: unspecified type Qualified Code(s): D64.9 - Anemia, unspecified Is this a current diagnosis for this admission?: Yes Plan: Likely multifactorial secondary to Poor nutrition, malignancy, and hemodilution (patient has received approximately 10 L of IV fluid since admission). hgb this am was 7.5 will transfuse 2 units of PRBC's. Heme/Onc consulted yesterday continue to monitor CBC after units are transfused. (4) Pulmonary embolism Qualifiers: Pulmonary embolism type: other Chronicity: unspecified Acute cor pulmonale presence: without acute cor pulmonale Qualified Code(s): I26.99 - Other pulmonary embolism without acute cor pulmonale Is this a current diagnosis for this admission?: Yes Plan: Patient has been placed on a heparin protocol for pulmonary embolism. Patient's primary nurse was able to discuss the patient's case with his cage fighter at [facility]. Patient was previously on Xarelto for treatment of a right arm DVT. Patient reports that he stopped the Xarelto approximately 1 week prior to admission due to development of hemoptysis. He does have an IVC filter in place. Continue to provide supplemental oxygen as needed to maintain saturations. Continue heparin drip. Will discuss with patients oncologist for recommendation of anticoagulant therapy. (5) Hypomagnesemia Is this a current diagnosis for this admission?: Yes Plan: Mag 1.0, patient has had only one soft formed stool in the last 24 hours and no vomiting. Will replace with 4 gm of Magnesium and recheck in the am. (6) Carcinoma of lung Qualifiers: Laterality: unspecified laterality Qualified Code(s): C34.90 - Malignant neoplasm of unspecified part of unspecified bronchus or lung Is this a current diagnosis for this admission?: Yes Plan: No acute care management for this problem; symptom and supportive care. Continue the patient's outpatient pain medication regimen. Reviewed records that was sent from [facility]. Dr. Reynolds consulted to assist with management; appreciated her evaluation and recommendations. (7) Diabetes mellitus type 2 in nonobese Is this a current diagnosis for this admission?: Yes Plan: Patient is on a consistent carb/cardiac diet. Monitor dietary intake and accu checks to evaluate for fluctuations in blood sugar since patient has been eating no more than 25-50% of his meals. Continue Lantus 5 units twice daily and sliding scale coverage. Hypoglycemia protocol is in place. (8) Elevated temperature Is this a current diagnosis for this admission?: Yes Plan: Patient's elevated temperature will be treated with Tylenol and/or ibuprofen for control. Continue to monitor blood pressure. Elevated temperature resolved. (9) Essential hypertension Is this a current diagnosis for this admission?: Yes (10) Pneumonia Qualifiers: Laterality: right Lung location: unspecified part of lung Is this a current diagnosis for this admission?: Yes Plan: patient doesn't have an elevated temperature, no elevation of WBC, his hemoptysis has resolved. He does have occasional productive cough for yellowish sputum. His lungs are clear to auscultation. His pneumonia is resolving. His blood cultures had no growth x 72 hours, and his sputum grew dee, consider changing to oral antibiotics.
--- NOTE | 2019-04-24 08:37 | PDOC PROGRESS REPORT ---
Subjective Progress Note for:: 04/24/19 Subjective:: Patient still complaining of stomach discomfort. Not eating much. Otherwise, he does not say much. He just wants to be out of the hospital. Reason For Visit: HYPOKALEMIA,ACUTE ENTERITIS,PNEUMONIA Physical Exam Vital Signs: Temp Pulse Resp BP Pulse Ox 99.1 F 118 H 20 146/76 H 96 04/24/19 03:50 04/24/19 07:00 04/24/19 03:50 04/24/19 03:50 04/24/19 03:50 Intake & Output 04/23/19 04/24/19 04/25/19 06:59 06:59 06:59 Intake Total 3857 4568 Output Total 925 4255 Balance 2932 3493 Weight 71 kg 72.5 kg General appearance: PRESENT: well-developed, well-nourished Head exam: PRESENT: normocephalic Respiratory exam: PRESENT: unlabored Neurological exam: PRESENT: alert, awake, oriented to person, oriented to place, oriented to time, oriented to situation Psychiatric exam: PRESENT: appropriate affect Skin exam: PRESENT: normal color Results Laboratory Results: 04/24/19 06:45 04/23/19 20:29 04/21/19 04/23/19 04/23/19 08:14 11:40 15:37 WBC RBC Hgb Hct MCV MCH MCHC RDW Plt Count Sodium Potassium Chloride Carbon Dioxide Anion Gap BUN Creatinine Est GFR ( Amer) Est GFR (Non-Af Amer) Glucose Calcium Magnesium Urine Color YELLOW Urine Appearance CLEAR Urine pH 5.0 Ur Specific [place] 1.017 Urine Protein NEGATIVE Urine Glucose (UA) 50 H Urine Ketones NEGATIVE Urine Blood NEGATIVE Urine Nitrite NEGATIVE Ur Leukocyte Esterase NEGATIVE Urine WBC (Auto) 2 Urine RBC (Auto) 0 Stool Occult Blood NEGATIVE Blood Type B POSITIVE Antibody Screen NEGATIVE 04/23/19 04/24/19 04/24/19 20:29 06:15 06:15 WBC RBC Hgb Hct MCV MCH MCHC RDW Plt Count Sodium 131.3 L Potassium 3.3 L Chloride 101 Carbon Dioxide 21 L Anion Gap 9 BUN 7 Creatinine 0.98 Est GFR ( Amer) > 60 Est GFR (Non-Af Amer) > 60 Glucose 121 H Calcium 11.2 H Magnesium 1.7 Urine Color STRAW Urine Appearance CLEAR Urine pH 6.0 Ur Specific [place] 1.009 Urine Protein NEGATIVE Urine Glucose (UA) NEGATIVE Urine Ketones NEGATIVE Urine Blood NEGATIVE Urine Nitrite NEGATIVE Ur Leukocyte Esterase NEGATIVE Urine WBC (Auto) 1 Urine RBC (Auto) 1 Stool Occult Blood NEGATIVE Blood Type Antibody Screen 04/24/19 06:45 WBC 5.8 RBC 2.81 L Hgb 8.7 L Hct 25.2 L MCV 90 MCH 30.9 MCHC 34.4 RDW 18.8 H Plt Count 369 Sodium Potassium Chloride Carbon Dioxide Anion Gap BUN Creatinine Est GFR ( Amer) Est GFR (Non-Af Amer) Glucose Calcium Magnesium Urine Color Urine Appearance Urine pH Ur Specific [place] Urine Protein Urine Glucose (UA) Urine Ketones Urine Blood Urine Nitrite Ur Leukocyte Esterase Urine WBC (Auto) Urine RBC (Auto) Stool Occult Blood Blood Type Antibody Screen 04/20/19 01:15 Stool - Stool - Final 04/21/19 16:10 Sputum Gram Stain - Final 04/21/19 16:10 Sputum Sputum Culture - Final C.albicans/C.dubliniensis Normal Shante Impressions: Chest X-Ray 04/19/19 16:10 IMPRESSION: Diffuse airspace opacity at the right lung with masslike consolida tion at the right upper lobe and mediastinal shift to the right. Left lung nodules. Small right pleural effusion. CT thorax can help in further evaluation. Chest/Abdomen CTA 04/19/19 17:49 IMPRESSION: 1. Acute pulmonary embolus at the right main pulmonary artery. 2. Masslike consolidation at the right upper lobe extending into the right hilum and mediastinum, probably corresponding to patient's known malignancy. 3. Consolidation with air bronchograms at the right lower lobe, may be secondary to progression of malignancy versus pneumonia. 4. Nodular densities at the trachea and right mainstem bronchus, endobronchial lesions cannot be excluded. 5. Moderate right pleural effusion. 6. Multiple bilateral pulmonary nodules and mediastinal adenopathy, most consis tent with metastatic disease. 7. Small pericardial effusion. 8. Diffuse chest wall edema. Bilateral gynecomastia. 9. Osseous metastatic lesion at the posterior aspect of T10 vertebral body. Contrast-enhanced MRI can help to evaluate for extension into the spinal canal. Abdomen/Pelvis CT 04/19/19 17:57 IMPRESSION: 1. Air-fluid levels throughout the small bowel, colon and at the rectum, may be seen with enterocolitis. 2. Mild colonic diverticulosis. 3. Osseous metastasis at T10 vertebral body. 4. 1.1 cm sclerotic lesion at the left acetabulum, indeterminate. Assessment & Plan - Diagnosis (1) Carcinoma of lung Qualifiers: Laterality: unspecified laterality Qualified Code(s): C34.90 - Malignant neoplasm of unspecified part of unspecified bronchus or lung Is this a current diagnosis for this admission?: Yes Plan: All treatment on hold until after discharge. (2) Hypokalemia Is this a current diagnosis for this admission?: Yes Plan: replacement in process. Much improved. (3) Hypomagnesemia Is this a current diagnosis for this admission?: Yes (4) Pulmonary embolism Qualifiers: Pulmonary embolism type: other Chronicity: unspecified Acute cor pulmonale presence: without acute cor pulmonale Qualified Code(s): I26.99 - Other pulmonary embolism without acute cor pulmonale Is this a current diagnosis for this admission?: Yes Plan: Still on heparin. Await further recommendations from primary oncologist, but if they cannot be reached, I would resume the Xarelto, as prior to admission. No further bleeding has been seen. His anemia may still be from the chemo. - Plan Summary Plan Summary: I will sign off. Please call again if further concerns.
[2019-04-24] MEDS ORDERED: MAG HYDROX/AL HYDROX/SIMETH SUSP 30 ML UDCUP PO ONE (08:39)
[2019-04-24] MEDS: INSULIN LISPRO 100 UNIT/ML 3 ML VIAL SUBCUT SCH ×4 (09:12→22:27)
[2019-04-24] MEDS: LACTOBACILLUS ACIDOPHILUS 250 MG TAB PO SCH ×2 (09:14→17:46)
[2019-04-24] MEDS: PREDNISONE 10 MG TABLET PO SCH (09:15)
[2019-04-24] MEDS: MORPHINE SULFATE SR 30 MG TABLET PO SCH ×2 (09:15→22:30)
[2019-04-24] MEDS: PANTOPRAZOLE SODIUM 40 MG VIAL IV SCH ×2 (09:15→22:31)
[2019-04-24] MEDS: INSULIN GLARGINE,HUM.REC.ANLOG 1,000 UNIT/10 ML VIAL SUBCUT SCH ×2 (09:15→22:31)
[2019-04-24] MEDS: ONDANSETRON HCL INJ/PF 4 MG/2 ML SDV IV PRN ×2 (09:15→15:27)
[2019-04-24] MEDS: OXYCODONE HCL IR 5 MG TABLET PO PRN ×3 (09:15→22:47)
[2019-04-24] MEDS: DOCUSATE SODIUM 100 MG CAPSULE PO SCH ×2 (09:16→17:42)
[2019-04-24] MEDS: CARVEDILOL 12.5 MG TABLET PO SCH ×2 (09:29→22:29)
[2019-04-24] MEDS: MAGNESIUM OXIDE 400 MG TABLET PO SCH ×2 (09:29→17:46)
[2019-04-24] MEDS: POTASSIUM CHLORIDE 20 MEQ PACKET PO SCH (09:30)
[2019-04-24] MEDS ORDERED: CARVEDILOL 6.25 MG TABLET PO SCH (10:00)
[2019-04-24] MEDS ORDERED: (PENDING PHARMACY ID) (Potassium Chloride [Potassium Chloride] 40 MEQ) PO SCH (10:00)
[2019-04-24] MEDS ORDERED: POTASSIUM CHLORIDE 10 MEQ CAPSULE.ER PO SCH (10:00)
--- NOTE | 2019-04-24 16:44 | PDOC PROGRESS REPORT ---
Subjective Progress Note for:: 04/24/19 Subjective:: This is a 44 y/o male with significant history of small cell lung carcinoma with mets and was being treated for SVC syndrome, he has a previous history of HTN, DVT, IVC filter placement, and was taking Xarelto for this. He also reports a history of a brain mass with surgical removal/craniotomy 11/2018. Upon reviewing records from [facility] that patient was admitted there on 12/11 with infection of the craniotomy and epidural abscess and was booker ated for meningitis. Patient was admitted here on 04/19/2019 for a 2 day history of diarrhea and intermittent abdominal pain that improves with "passing air". He reports nausea without vomiting, and poor diet. On review of dietary intake his intake is sporadic, and his intake is anywhere from 25% to 75% of meals. His last diarrhea bowel movement was on 04/21/2019. On admission he reported that he had chemotherapy treatment 2 days prior to arriving in the ED and that it commonly causes diarrhea, but this was worse than those times. His lab work revealed hypokalemia of 2.8 for which he was received IV and oral replacements. He had a CTA of the abdomen and pelvis which was consistent for acute en terocolitis. His potassium this morning was 3.1, and magnesium of 1.1. He received oral potassium of 40 meq. liquid. He also received 1 gm magnesium IVPB to correct the electrolyte imbalances. on rounds this morning, patient was found to be sitting with HOB in bed. His potassium was 3.3, replacement ordered and magnesium was 1.7 Reason For Visit: HYPOKALEMIA,ACUTE ENTERITIS,PNEUMONIA Physical Exam Vital Signs: Temp Pulse Resp BP Pulse Ox 99.5 F 124 H 17 149/75 H 99 04/24/19 11:50 04/24/19 14:00 04/24/19 11:50 04/24/19 11:50 04/24/19 11:50 Intake & Output 04/23/19 04/24/19 04/25/19 06:59 06:59 06:59 Intake Total 3857 4568 240 Output Total 925 1075 Balance 2932 3493 240 Weight 71 kg 72.5 kg General appearance: PRESENT: no acute distress Head exam: PRESENT: atraumatic Eye exam: PRESENT: conjunctiva pink Ear exam: PRESENT: normal external ear exam Mouth exam: PRESENT: moist Respiratory exam: PRESENT: clear to auscultation emily, symmetrical, unlabored Cardiovascular exam: PRESENT: +S1, +S2, tachycardia Vascular exam: PRESENT: normal capillary refill GI/Abdominal exam: PRESENT: normal bowel sounds, soft Rectal exam: PRESENT: deferred Extremities exam: PRESENT: full ROM Neurological exam: PRESENT: alert, awake, oriented to person, oriented to place, oriented to time, oriented to situation Psychiatric exam: PRESENT: flat affect Results Laboratory Results: 04/24/19 06:45 04/23/19 20:29 04/23/19 04/24/19 04/24/19 20:29 06:15 06:15 WBC RBC Hgb Hct MCV MCH MCHC RDW Plt Count Sodium 131.3 L Potassium 3.3 L Chloride 101 Carbon Dioxide 21 L Anion Gap 9 BUN 7 Creatinine 0.98 Est GFR ( Amer) > 60 Est GFR (Non-Af Amer) > 60 Glucose 121 H Calcium 11.2 H Magnesium 1.7 Urine Color STRAW Urine Appearance CLEAR Urine pH 6.0 Ur Specific [place] 1.009 Urine Protein NEGATIVE Urine Glucose (UA) NEGATIVE Urine Ketones NEGATIVE Urine Blood NEGATIVE Urine Nitrite NEGATIVE Ur Leukocyte Esterase NEGATIVE Urine WBC (Auto) 1 Urine RBC (Auto) 1 Stool Occult Blood NEGATIVE 04/24/19 06:45 WBC 5.8 RBC 2.81 L Hgb 8.7 L Hct 25.2 L MCV 90 MCH 30.9 MCHC 34.4 RDW 18.8 H Plt Count 369 Sodium Potassium Chloride Carbon Dioxide Anion Gap BUN Creatinine Est GFR ( Amer) Est GFR (Non-Af Amer) Glucose Calcium Magnesium Urine Color Urine Appearance Urine pH Ur Specific [place] Urine Protein Urine Glucose (UA) Urine Ketones Urine Blood Urine Nitrite Ur Leukocyte Esterase Urine WBC (Auto) Urine RBC (Auto) Stool Occult Blood 04/20/19 01:15 Stool - Stool - Final 04/20/19 01:15 Stool - Stool Stool Culture - Final Vre,Enterococcus Faecium Impressions: Chest X-Ray 04/19/19 16:10 IMPRESSION: Diffuse airspace opacity at the right lung with masslike consolidation at the right upper lobe and mediastinal shift to the right. Left lung nodules. Small right pleural effusion. CT thorax can help in further evaluation. Chest/Abdomen CTA 04/19/19 17:49 IMPRESSION: 1. Acute pulmonary embolus at the right main pulmonary artery. 2. Masslike consolidation at the right upper lobe extending into the right hilum and mediastinum, probably corresponding to patient's known malignancy. 3. Consolidation with air bronchograms at the right lower lobe, may be secondary to progression of malignancy versus pneumonia. 4. Nodular densities at the trachea and right mainstem bronchus, endobronchial lesions cannot be excluded. 5. Moderate right pleural effusion. 6. Multiple bilateral pulmonary nodules and mediastinal adenopathy, most consistent with metastatic disease. 7. Small pericardial effusion. 8. Diffuse chest wall edema. Bilateral gynecomastia. 9. Osseous metastatic lesion at the posterior aspect of T10 vertebral body. Contrast-enhanced MRI can help to evaluate for extension into the spinal canal. Abdomen/Pelvis CT 04/19/19 17:57 IMPRESSION: 1. Air-fluid levels throughout the small bowel, colon and at the rectum, may be seen with enterocolitis. 2. Mild colonic diverticulosis. 3. Osseous metastasis at T10 vertebral body. 4. 1.1 cm sclerotic lesion at the left acetabulum, indeterminate. Assessment and Plan - Diagnosis (1) Hypokalemia Is this a current diagnosis for this admission?: Yes Plan: Potassium is 3.3 this am, resolving. (2) Enterocolitis Is this a current diagnosis for this admission?: Yes Plan: Resolved Patients diarrhea resolving, has only had one soft formed stool in past 24 hours and hasn't needed immodium in 2 days, he continues to c/o occasional nausea that is releived with antiemetics. His abdomen is soft with hypoactive bowel sounds. Electrolytes continue to be affected, will check electrolytes for imbalances and replace as necessary. on patient rounds this am discussed with patient, he denies diarrhea for past 2 days. (3) Anemia Qualifiers: Anemia type: unspecified type Qualified Code(s): D64.9 - Anemia, unspecified Is this a current diagnosis for this admission?: Yes Plan: Today hgb was 8.7 and stable, patient denies hemoptysis. Heme/Onc consulted yesterday continue to monitor CBC after units are transfused. (4) Pulmonary embolism Qualifiers: Pulmonary embolism type: other Chronicity: unspecified Acute cor pulmonale presence: without acute cor pulmonale Qualified Code(s): I26.99 - Other pulmonary embolism without acute cor pulmonale Is this a current diagnosis for this admission?: Yes Plan: Patient has been on a heparin protocol for pulmonary embolism. Patient was previously on Xarelto for treatment of a right arm DVT. Patient reports that he stopped the Xarelto approximately 1 week prior to admission due to development of hemoptysis which has now resolved, will restart his xarelto and discontinue the heparin gtt prior to dc. If continues to be stable overnight plan on dc tomorrow. He does have an IVC filter in place. (5) Hypomagnesemia Is this a current diagnosis for this admission?: Yes Plan: Resolved Mag 1.7, patient has had only one soft formed stool in the last 48hours and no vomiting. (6) Carcinoma of lung Qualifiers: Laterality: unspecified laterality Qualified Code(s): C34.90 - Malignant neoplasm of unspecified part of unspecified bronchus or lung Is this a current diagnosis for this admission?: Yes Plan: No acute care management for this problem; symptom and supportive care. Continue the patient's outpatient pain medication regimen. Reviewed records that was sent from [facility]. Dr. Reynolds consulted to assist with management; appreciated her evaluation and recommendations and if Dr. Batista s office didn't return call, to restart xarelto at prior dose for dc. (7) Diabetes mellitus type 2 in nonobese Is this a current diagnosis for this admission?: Yes Plan: Patient is on a consistent carb/cardiac diet. Monitor dietary intake and accu checks Continue Lantus 5 units twice daily and sliding scale coverage. Hypoglycemia protocol is in place. (8) Elevated temperature Is this a current diagnosis for this admission?: No Plan: Elevated temperature resolved. (9) Essential hypertension Is this a current diagnosis for this admission?: Yes Plan: Patient endorses a history of hypertension; overall acceptable today. Consistent carb/cardiac diet. Continue home dose carvedilol. (10) Pneumonia Qualifiers: Laterality: right Lung location: unspecified part of lung Is this a current diagnosis for this admission?: Yes Plan: patient doesn't have an elevated temperature, no elevation of WBC, his hemoptysis has resolved. He does have occasional productive cough for yellowish sputum. His lungs are clear to auscultation. His pneumonia is resolving. His blood cultures had no growth x 72 hours, and his sputum grew dee, change to oral antibiotics, augmentin and azithromycin po prior to dc home.
--- NOTE | 2019-04-24 17:40 | PDOC PROGRESS REPORT ---
Subjective Progress Note for:: 04/24/19 Subjective:: The patient is a 44-year-old male, poor historian, but known to have a history of hypertension, DVT, metastatic lung cancer, DM type II, and tobacco dependency who was admitted 04/19/2019 for hypokalemia secondary to enterocolitis. Patient was seen on morning rounds. He was found resting in bed comfortably on room air. He denies abdominal discomfort, nausea, and vomiting. He has been able to tolerate p.o. intake this morning. He continues to have soft bowel mo vements, though significantly decreased in frequency. He denies fever, chills, chest pain, palpitations, dyspnea, orthopnea and cough. He has no new questions or concerns. No specific concerns per nursing. Reason For Visit: HYPOKALEMIA,ACUTE ENTERITIS,PNEUMONIA Physical Exam Vital Signs: Temp Pulse Resp BP Pulse Ox 99.5 F 124 H 17 149/75 H 99 04/24/19 11:50 04/24/19 14:00 04/24/19 11:50 04/24/19 11:50 04/24/19 11:50 Intake & Output 04/23/19 04/24/19 04/25/19 06:59 06:59 06:59 Intake Total 3857 4568 240 Output Total 925 1075 Balance 2932 3493 240 Weight 71 kg 72.5 kg General appearance: PRESENT: no acute distress, thin, well-developed, well- nourished Head exam: PRESENT: atraumatic, normocephalic Eye exam: PRESENT: conjunctiva pink, EOMI, PERRLA. ABSENT: scleral icterus Ear exam: PRESENT: normal external ear exam Mouth exam: PRESENT: moist, tongue midline Neck exam: ABSENT: carotid bruit, JVD, lymphadenopathy, thyromegaly Respiratory exam: PRESENT: clear to auscultation emily, symmetrical, unlabored. ABSENT: rales, rhonchi, wheezes Cardiovascular exam: PRESENT: +S1, +S2, tachycardia. ABSENT: diastolic murmur, rubs, systolic murmur Pulses: PRESENT: normal dorsalis pedis pul Vascular exam: PRESENT: normal capillary refill GI/Abdominal exam: PRESENT: normal bowel sounds, soft. ABSENT: distended, guarding, mass, organolmegaly, rebound, tenderness Rectal exam: PRESENT: deferred Extremities exam: PRESENT: full ROM. ABSENT: calf tenderness, clubbing, pedal edema Neurological exam: PRESENT: alert, awake, oriented to person, oriented to place, oriented to time, oriented to situation, CN II-XII grossly intact. ABSENT: motor sensory deficit Psychiatric exam: PRESENT: flat affect, normal mood. ABSENT: homicidal ideation, suicidal ideation Skin exam: PRESENT: dry, intact, warm. ABSENT: cyanosis, rash Results Laboratory Results: 04/24/19 06:45 04/23/19 20:29 04/23/19 04/24/19 04/24/19 20:29 06:15 06:15 WBC RBC Hgb Hct MCV MCH MCHC RDW Plt Count Sodium 131.3 L Potassium 3.3 L Chloride 101 Carbon Dioxide 21 L Anion Gap 9 BUN 7 Creatinine 0.98 Est GFR ( Amer) > 60 Est GFR (Non-Af Amer) > 60 Glucose 121 H Calcium 11.2 H Magnesium 1.7 Urine Color STRAW Urine Appearance CLEAR Urine pH 6.0 Ur Specific [place] 1.009 Urine Protein NEGATIVE Urine Glucose (UA) NEGATIVE Urine Ketones NEGATIVE Urine Blood NEGATIVE Urine Nitrite NEGATIVE Ur Leukocyte Esterase NEGATIVE Urine WBC (Auto) 1 Urine RBC (Auto) 1 Stool Occult Blood NEGATIVE 04/24/19 06:45 WBC 5.8 RBC 2.81 L Hgb 8.7 L Hct 25.2 L MCV 90 MCH 30.9 MCHC 34.4 RDW 18.8 H Plt Count 369 Sodium Potassium Chloride Carbon Dioxide Anion Gap BUN Creatinine Est GFR ( Amer) Est GFR (Non-Af Amer) Glucose Calcium Magnesium Urine Color Urine Appearance Urine pH Ur Specific [place] Urine Protein Urine Glucose (UA) Urine Ketones Urine Blood Urine Nitrite Ur Leukocyte Esterase Urine WBC (Auto) Urine RBC (Auto) Stool Occult Blood 04/19/19 16:27 Blood Blood Culture - Final NO GROWTH IN 5 DAYS 04/20/19 01:15 Stool - Stool - Final 04/20/19 01:15 Stool - Stool Stool Culture - Final Vre,Enterococcus Faecium Impressions: Chest X-Ray 04/19/19 16:10 IMPRESSION: Diffuse airspace opacity at the right lung with masslike consolidation at the right upper lobe and mediastinal shift to the right. Left lung nodules. Small right pleural effusion. CT thorax can help in further evaluation. Chest/Abdomen CTA 04/19/19 17:49 IMPRESSION: 1. Acute pulmonary embolus at the right main pulmonary artery. 2. Masslike consolidation at the right upper lobe extending into the right hilum and mediastinum, probably corresponding to patient's known malignancy. 3. Consolidation with air bronchograms at the right lower lobe, may be secondary to progression of malignancy versus pneumonia. 4. Nodular densities at the trachea and right mainstem bronchus, endobronchial lesions cannot be excluded. 5. Moderate right pleural effusion. 6. Multiple bilateral pulmonary nodules and mediastinal adenopathy, most consistent with metastatic disease. 7. Small pericardial effusion. 8. Diffuse chest wall edema. Bilateral gynecomastia. 9. Osseous metastatic lesion at the posterior aspect of T10 vertebral body. Contrast-enhanced MRI can help to evaluate for extension into the spinal canal. Abdomen/Pelvis CT 04/19/19 17:57 IMPRESSION: 1. Air-fluid levels throughout the small bowel, colon and at the rectum, may be seen with enterocolitis. 2. Mild colonic diverticulosis. 3. Osseous metastasis at T10 vertebral body. 4. 1.1 cm sclerotic lesion at the left acetabulum, indeterminate. Assessment and Plan - Diagnosis (1) Hypokalemia Is this a current diagnosis for this admission?: Yes Plan: Improved. Secondary to poor p.o. intake and GI losses Magnesium low; have replaced. Patient is receiving scheduled 40 mg p.o. potassium daily (home dose) Have provided additional p.o. potassium today. We will continue to monitor serial chemistries and replace as indicated. (2) Hypomagnesemia Is this a current diagnosis for this admission?: Yes Plan: Replete. Secondary to poor p.o. intake and GI losses; frequent diarrhea related to recent chemotherapy treatment appears to be resolving. Continue oral supplementation. Follow-up magnesium level in a.m. (3) Enterocolitis Is this a current diagnosis for this admission?: Yes Plan: Resolved; now with soft formed stools 1-2 times daily without abdominal discomfort nausea or vomiting. Likely secondary to chemotherapy treatment. C. difficile PCR is negative. Hemoccult is negative. Stool is negative for WBCs. Stool culture Demonstrates colonized VRE Continue lactobacillus and Imodium. Consider addition of lomotil (4) Carcinoma of lung Qualifiers: Laterality: unspecified laterality Qualified Code(s): C34.90 - Malignant neoplasm of unspecified part of unspecified bronchus or lung Is this a current diagnosis for this admission?: Yes Plan: No acute care for this problem; symptomatic and supportive care. Continue the patient's outpatient pain medication regiment. Patient was able to contact his chief business officer; she has faxed over recent medical records and chest imaging. Dr. Reynolds consulted to assist with management; appreciate her evaluation and recommendations. Discussed with Dr. Hylton today; has signed off. (5) Diabetes mellitus type 2 in nonobese Is this a current diagnosis for this admission?: Yes Plan: A1c is 6.5%. He is placed on a consistent carb/cardiac diet. Continue Lantus 5 units twice daily and sliding scale coverage. Hypoglycemia protocol is in place. (6) Essential hypertension Is this a current diagnosis for this admission?: Yes Plan: Patient endorses a history of hypertension; overall acceptable today. Consistent carb/cardiac diet. Continue carvedilol. (7) Infiltrate of right lung present on chest x-ray Is this a current diagnosis for this admission?: Yes Plan: Afebrile >48 hours He has had tachypnea, overall improved (28->18), tachycardia is improved (though persistent related to pulmonary embolus) Chest x-ray and CTA of the chest concerning for consolidation with air bronchograms at the right lower lobe; possible secondary to progression of his malignancy versus pneumonia. Patient does have a normal WBC and acceptable ANC. Blood cultures are negative at 5 days. Sputum cultures show c. albicans and normal respiratory erick. The patient was empirically been placed on IV azithromycin, vancomycin, and Zosyn for treatment of healthcare associated pneumonia in an immunocompromised patient. Discontinue Vancomycin yesterday. Recieved 4 days therapy IV azithromycin discontinued today; received full course of therapy. IV Zosyn discontinued today; received 5 days of therapy. Will start Augmentin to continue for an additional 5 days for a total 10-day course of therapy. As needed nebulizer treatments. Tylenol as needed for fever. Incentive spirometer and flutter valve to bedside. (8) Pulmonary embolism Qualifiers: Pulmonary embolism type: other Chronicity: unspecified Acute cor pulmonale presence: without acute cor pulmonale Qualified Code(s): I26.99 - Other pulmonary embolism without acute cor pulmonale Is this a current diagnosis for this admission?: Yes Plan: Patient has been placed on a heparin protocol for pulmonary embolism. Patient's primary nurse was able to discuss the patient's case with his chief business officer at [facility]. Patient was previously on Xarelto for treatment of a right arm DVT. Patient reports that he stopped the Xarelto approximately 1 week prior to admission due to development of hemoptysis. He does have an IVC filter in place. Attempted to get a hold of the patient's primary oncologist today to discuss recommendations for anticoagulant therapy. Unfortunately, did not receive return phone call from Dr. Batista. Discussed with Dr. Hylton; will resume the patient's previous Xarelto therapy. Heparin drip is discontinued. (9) Tobacco use disorder, severe, dependence Is this a current diagnosis for this admission?: Yes Plan: Smoking cessation has been advised. A nicotine replacement patch will be available for the patient's use. (10) Anemia Qualifiers: Anemia type: unspecified type Qualified Code(s): D64.9 - Anemia, unspecified Is this a current diagnosis for this admission?: Yes Plan: Likely multifactorial secondary to Poor nutrition, malignancy, and hemodilution (patient has received approximately 10 L of IV fluid since admission). Hgb 9.9-> 7.3-> 8.9 (s/p 1 unit PRBC)-> 7.5-> 8.7 (s/p 1 unit PRBC) Has received 2 units PRBC total. Urinalysis and Hemoccult are negative for blood; recheck again negative Hemoptysis has resolved. Heme/Onc consulted; discussed with Dr. Hylton today. Although the patient has required 2 units PRBC, there is no evidence of continued active bleeding at this time. Safe to resume chronic anticoagulation. We will monitor CBC and transfuse for hemoglobin less than 8. - Time Time Spent with patient: 25-34 minutes Medications reviewed and adjusted accordingly: Yes Anticipated discharge: Home Within: within 24 hours
[2019-04-24] MEDS: RIVAROXABAN 10 MG TABLET PO SCH (17:46)
[2019-04-24] MEDS: AMOXICILLIN TR/POT CLAVULANATE 500-125 MG TAB PO SCH (22:30)
[2019-04-25] MEDS: ONDANSETRON HCL INJ/PF 4 MG/2 ML SDV IV PRN ×3 (01:33→22:56)
[2019-04-25] MEDS: METOPROLOL TARTRATE PF/INJ 5 MG/5 ML SDV IV PRN ×3 (01:33→20:12)
[2019-04-25 04:20] LABS: HEMATOCRIT 27.1 % (37.9-51.0); HEMOGLOBIN 9.3 g/dL (13.5-17.0); MEAN CORPUSCULAR HGB CONC 34.4 g/dL (32.0-36.0); MEAN CORPUSCULAR VOLUME 90 fl (80-97); PLATELET COUNT 401 10^3/uL (150-450); RED CELL DISTRIBUTION WIDTH 18.5 % (11.5-14.0); WHITE BLOOD COUNT 7.4 10^3/uL (4.0-10.5)
[2019-04-25 04:49] LABS: ANION GAP 10 (5-19); BLOOD UREA NITROGEN 5 mg/dL (7-20); CARBON DIOXIDE 26 mmol/L (22-30); CHLORIDE 96 mmol/L (98-107); GLUCOSE 147 mg/dL (75-110); POTASSIUM 3.2 mmol/L (3.6-5.0)
[2019-04-25 04:55] LABS: CALCIUM 11.8 mg/dL (8.4-10.2)
[2019-04-25] MEDS: AMOXICILLIN TR/POT CLAVULANATE 500-125 MG TAB PO SCH ×3 (05:27→22:56)
[2019-04-25] MEDS ORDERED: POTASSIUM CHLORIDE 20 MEQ PACKET PO ONE (07:22)
[2019-04-25] MEDS: INSULIN LISPRO 100 UNIT/ML 3 ML VIAL SUBCUT SCH ×4 (09:13→23:03)
[2019-04-25] MEDS: DOCUSATE SODIUM 100 MG CAPSULE PO SCH ×2 (09:14→17:25)
[2019-04-25] MEDS: POTASSIUM CHLORIDE 20 MEQ PACKET PO SCH (09:21)
[2019-04-25] MEDS: INSULIN GLARGINE,HUM.REC.ANLOG 1,000 UNIT/10 ML VIAL SUBCUT SCH ×2 (09:22→22:57)
[2019-04-25] MEDS: MORPHINE SULFATE SR 30 MG TABLET PO SCH ×2 (09:22→22:57)
[2019-04-25] MEDS: PREDNISONE 10 MG TABLET PO SCH (09:23)
[2019-04-25] MEDS: LACTOBACILLUS ACIDOPHILUS 250 MG TAB PO SCH ×2 (09:23→17:29)
[2019-04-25] MEDS: MAGNESIUM OXIDE 400 MG TABLET PO SCH ×2 (09:23→17:29)
[2019-04-25] MEDS: OXYCODONE HCL IR 5 MG TABLET PO PRN ×2 (09:28→20:13)
[2019-04-25] MEDS ORDERED: METOPROLOL TARTRATE 25 MG TABLET PO SCH ×2 (10:00→22:00)
[2019-04-25] MEDS ORDERED: AZITHROMYCIN 250 MG TABLET PO SCH (10:00)
--- NOTE | 2019-04-25 13:01 | PDOC PROGRESS REPORT ---
Subjective Progress Note for:: 04/25/19 Subjective:: The patient is a 44-year-old male, poor historian, but known to have a history of hypertension, DVT, metastatic lung cancer, DM type II, and tobacco dependency who was admitted 04/19/2019 for hypokalemia secondary to enterocolitis. Patient was seen on morning rounds. He was found resting in bed comfortably on room air. He reports that his diarrhea has improved and that he has no complaints today. He denies fever, chills, chest pain, palpitations, dyspnea, orthopnea, cough, abdominal pain, nausea vomiting and diarrhea. He has no new questions or concerns. No specific concerns per nursing. Reason For Visit: HYPOKALEMIA,ACUTE ENTERITIS,PNEUMONIA Physical Exam Vital Signs: Temp Pulse Resp BP Pulse Ox 99.1 F 99 17 160/73 H 97 04/25/19 12:00 04/25/19 12:00 04/25/19 12:00 04/25/19 12:00 04/25/19 12:00 Intake & Output 04/24/19 04/25/19 04/26/19 06:59 06:59 06:59 Intake Total 4568 1320 360 Output Total 1075 200 Balance 3493 1120 360 Weight 72.5 kg 72.6 kg General appearance: PRESENT: no acute distress, well-developed, well-nourished Head exam: PRESENT: atraumatic, normocephalic Eye exam: PRESENT: conjunctiva pink, EOMI, PERRLA. ABSENT: scleral icterus Ear exam: PRESENT: normal external ear exam Mouth exam: PRESENT: moist, tongue midline Neck exam: ABSENT: carotid bruit, JVD, lymphadenopathy, thyromegaly Respiratory exam: PRESENT: clear to auscultation emily, symmetrical, unlabored. ABSENT: rales, rhonchi, wheezes Cardiovascular exam: PRESENT: RRR, +S1, +S2, tachycardia. ABSENT: diastolic murmur, rubs, systolic murmur Pulses: PRESENT: normal dorsalis pedis pul Vascular exam: PRESENT: normal capillary refill GI/Abdominal exam: PRESENT: normal bowel sounds, soft. ABSENT: distended, guarding, mass, organolmegaly, rebound, tenderness Rectal exam: PRESENT: deferred Extremities exam: PRESENT: full ROM. ABSENT: calf tenderness, clubbing, pedal edema Neurological exam: PRESENT: alert, awake, oriented to person, oriented to place, oriented to time, oriented to situation, CN II-XII grossly intact. ABSENT: motor sensory deficit Psychiatric exam: PRESENT: flat affect, normal mood. ABSENT: homicidal ideation, suicidal ideation Skin exam: PRESENT: dry, intact, warm. ABSENT: cyanosis, rash Results Laboratory Results: 04/25/19 04:11 04/25/19 04:11 04/25/19 04/25/19 04:11 04:11 WBC 7.4 RBC 3.00 L Hgb 9.3 L Hct 27.1 L MCV 90 MCH 31.0 MCHC 34.4 RDW 18.5 H Plt Count 401 Sodium 132.1 L Potassium 3.2 L Chloride 96 L Carbon Dioxide 26 Anion Gap 10 BUN 5 L Creatinine 0.90 Est GFR ( Amer) > 60 Est GFR (Non-Af Amer) > 60 Glucose 147 H Calcium 11.8 H 04/19/19 19:20 Blood Blood Culture - Final NO GROWTH IN 5 DAYS 04/19/19 16:27 Blood Blood Culture - Final NO GROWTH IN 5 DAYS Impressions: Chest X-Ray 04/19/19 16:10 IMPRESSION: Diffuse airspace opacity at the right lung with masslike consolidation at the right upper lobe and mediastinal shift to the right. Left lung nodules. Small right pleural effusion. CT thorax can help in further evaluation. Chest/Abdomen CTA 04/19/19 17:49 IMPRESSION: 1. Acute pulmonary embolus at the right main pulmonary artery. 2. Masslike consolidation at the right upper lobe extending into the right hilum and mediastinum, probably corresponding to patient's known malignancy. 3. Consolidation with air bronchograms at the right lower lobe, may be secondary to progression of malignancy versus pneumonia. 4. Nodular densities at the trachea and right mainstem bronchus, endobronchial lesions cannot be excluded. 5. Moderate right pleural effusion. 6. Multiple bilateral pulmonary nodules and mediastinal adenopathy, most consistent with metastatic disease. 7. Small pericardial effusion. 8. Diffuse chest wall edema. Bilateral gynecomastia. 9. Osseous metastatic lesion at the posterior aspect of T10 vertebral body. Contrast-enhanced MRI can help to evaluate for extension into the spinal canal. Abdomen/Pelvis CT 04/19/19 17:57 IMPRESSION: 1. Air-fluid levels throughout the small bowel, colon and at the rectum, may be seen with enterocolitis. 2. Mild colonic diverticulosis. 3. Osseous metastasis at T10 vertebral body. 4. 1.1 cm sclerotic lesion at the left acetabulum, indeterminate. Assessment and Plan - Diagnosis (1) Hypokalemia Is this a current diagnosis for this admission?: Yes Plan: Improved. Secondary to poor p.o. intake and GI losses Magnesium has been corrected. Patient is receiving scheduled 40 mg p.o. potassium daily (home dose) Have provided additional p.o. potassium. We will continue to monitor serial chemistries and replace as indicated. (2) Hypomagnesemia Is this a current diagnosis for this admission?: Yes Plan: Replete. Secondary to poor p.o. intake and GI losses; frequent diarrhea related to recent chemotherapy treatment appears to be resolving. Continue oral supplementation. Follow-up magnesium level in a.m. (3) Enterocolitis Is this a current diagnosis for this admission?: Yes Plan: Resolved; patient reports that symptoms have resolved. Likely secondary to chemotherapy treatment. C. difficile PCR is negative. Hemoccult is negative. Stool is negative for WBCs. Stool culture Demonstrates colonized VRE Continue lactobacillus and Imodium as needed. (4) Carcinoma of lung Qualifiers: Laterality: unspecified laterality Qualified Code(s): C34.90 - Malignant neoplasm of unspecified part of unspecified bronchus or lung Is this a current diagnosis for this admission?: Yes Plan: No acute care for this problem; symptomatic and supportive care. Continue the patient's outpatient pain medication regiment. 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 Dr. Reynolds consulted to assist with management; appreciate her evaluation and recommendations. Has signed off. (5) Diabetes mellitus type 2 in nonobese Is this a current diagnosis for this admission?: Yes Plan: A1c is 6.5%. He is placed on a consistent carb/cardiac diet. Continue Lantus 5 units twice daily and sliding scale coverage. Hypoglycemia protocol is in place. (6) Essential hypertension Is this a current diagnosis for this admission?: Yes Plan: Patient endorses a history of hypertension; hypertension today. Consistent carb/cardiac diet. Discontinued carvedilol and started on Toprol 50 mg twice daily for improved blood pressure and heart rate control. (7) Infiltrate of right lung present on chest x-ray Is this a current diagnosis for this admission?: Yes Plan: Afebrile >48 hours He has had tachypnea, overall improved (28->18), tachycardia is improved (though persistent related to pulmonary embolus) Chest x-ray and CTA of the chest concerning for consolidation with air bronchograms at the right lower lobe; possible secondary to progression of his malignancy versus pneumonia. Patient does have a normal WBC and acceptable ANC. Blood cultures are negative at 5 days. Sputum cultures show c. albicans and normal respiratory erick. The patient was empirically been placed on IV azithromycin, vancomycin, and Zosyn for treatment of healthcare associated pneumonia in an immunocompromised patient. Discontinue Vancomycin. Recieved 4 days therapy IV azithromycin discontinued; received full course of therapy. IV Zosyn discontinued; received 5 days of therapy. Continue Augmentin; total 10-day course of therapy. As needed nebulizer treatments. Tylenol as needed for fever. Incentive spirometer and flutter valve to bedside. (8) Pulmonary embolism Qualifiers: Pulmonary embolism type: other Chronicity: unspecified Acute cor pulmonale presence: without acute cor pulmonale Qualified Code(s): I26.99 - Other pulmonary embolism without acute cor pulmonale Is this a current diagnosis for this admission?: Yes Plan: Patient has been placed on a heparin protocol for pulmonary embolism. Patient's primary nurse was able to discuss the patient's case with his recruitment internship at [facility]. Patient was previously on Xarelto for treatment of a right arm DVT. Patient reports that he stopped the Xarelto approximately 1 week prior to admission due to development of hemoptysis. He does have an IVC filter in place. Attempted to contact the patient's established oncologist, Dr. Batista. Unfortunately calls were not returned either day messages were left. Discussed with Dr. Hylton; have resumed the patient's previous Xarelto therapy. Heparin drip is discontinued. (9) Tobacco use disorder, severe, dependence Is this a current diagnosis for this admission?: Yes Plan: Smoking cessation has been advised. A nicotine replacement patch will be available for the patient's use. (10) Anemia Qualifiers: Anemia type: unspecified type Qualified Code(s): D64.9 - Anemia, unspecified Is this a current diagnosis for this admission?: Yes Plan: Likely multifactorial secondary to Poor nutrition, malignancy, and hemodilution (patient has received approximately 10 L of IV fluid since admission). Hgb 9.9-> 7.3-> 8.9 (s/p 1 unit PRBC)-> 7.5-> 8.7 (s/p 1 unit PRBC) Has received 2 units PRBC total. Urinalysis and Hemoccult are negative for blood; recheck again negative Hemoptysis has resolved. Heme/Onc consulted; discussed with Dr. Hylton today. Although the patient has required 2 units PRBC, there is no evidence of continued active bleeding at this time. Safe to resume chronic anticoagulation. We will monitor CBC and transfuse for hemoglobin less than 8. (11) Tachycardia Is this a current diagnosis for this admission?: Yes Plan: Unclear etiology; likely multifactorial secondary to lung cancer with metastasis, pulmonary embolus, and resolving pneumonia. Patient tells me today that his heart rate does run high but he is unable to specify his usual range. Dehydration has been corrected. Initially monitor to determine if heart rate would improve with resolution of his pneumonia. He remains persistently tachycardic with average heart rate in the 120s while at rest. Increase of Coreg had no effect. I have discontinued Coreg and started metoprolol 50 mg twice daily. IV Lopressor as needed for rate control. Consider addition of calcium channel dionne. - Time Time Spent with patient: 25-34 minutes Medications reviewed and adjusted accordingly: Yes Anticipated discharge: Home Within: within 24 hours - Plan Summary Plan Summary: Discussed tachycardia w/ Dr. Gao. Plan as above.
[2019-04-25] MEDS: RIVAROXABAN 10 MG TABLET PO SCH (16:13)
[2019-04-25] MEDS: METOPROLOL TARTRATE 50 MG TABLET PO SCH (22:58)
[2019-04-26] MEDS: OXYCODONE HCL IR 5 MG TABLET PO PRN ×3 (03:36→22:05)
[2019-04-26] MEDS: METOPROLOL TARTRATE PF/INJ 5 MG/5 ML SDV IV PRN (04:58)
[2019-04-26] MEDS: ONDANSETRON HCL INJ/PF 4 MG/2 ML SDV IV PRN (04:58)
[2019-04-26 05:10] LABS: ANION GAP 10 (5-19); BLOOD UREA NITROGEN 8 mg/dL (7-20); CARBON DIOXIDE 29 mmol/L (22-30); CHLORIDE 94 mmol/L (98-107); GLUCOSE 170 mg/dL (75-110); POTASSIUM 3.5 mmol/L (3.6-5.0)
[2019-04-26 05:34] LABS: CALCIUM 12.3 mg/dL (8.4-10.2)
[2019-04-26] MEDS ORDERED: ZOLEDRONIC ACID 5 MG/100 ML BOTTLE IV ONE (05:59)
[2019-04-26] MEDS: AMOXICILLIN TR/POT CLAVULANATE 500-125 MG TAB PO SCH ×3 (06:16→22:00)
[2019-04-26] MEDS: NORMAL SALINE 1000 ML 1,000 ML IV PRN ×3 (06:17→11:17)
[2019-04-26] MEDS ORDERED: ZOLEDRONIC ACID 5 MG/100 ML RTU IV ONE ×2 (07:30→11:00)
[2019-04-26] MEDS: INSULIN LISPRO 100 UNIT/ML 3 ML VIAL SUBCUT SCH ×4 (07:56→22:01)
[2019-04-26] MEDS: PREDNISONE 10 MG TABLET PO SCH (07:56)
[2019-04-26] MEDS: INSULIN GLARGINE,HUM.REC.ANLOG 1,000 UNIT/10 ML VIAL SUBCUT SCH ×2 (07:57→22:03)
[2019-04-26] MEDS ORDERED: FUROSEMIDE INJ/PF 40 MG/4 ML SDV IV ONE (08:00)
[2019-04-26] MEDS: METOPROLOL TARTRATE 50 MG TABLET PO SCH ×2 (10:14→22:00)
[2019-04-26] MEDS: MORPHINE SULFATE SR 30 MG TABLET PO SCH ×2 (10:14→22:01)
[2019-04-26] MEDS: DOCUSATE SODIUM 100 MG CAPSULE PO SCH ×2 (10:15→17:29)
[2019-04-26] MEDS: LACTOBACILLUS ACIDOPHILUS 250 MG TAB PO SCH ×2 (10:15→17:29)
[2019-04-26] MEDS: POTASSIUM CHLORIDE 20 MEQ PACKET PO SCH ×2 (10:15→16:17)
[2019-04-26] MEDS: MAGNESIUM OXIDE 400 MG TABLET PO SCH ×3 (10:15→17:29)
[2019-04-26] MEDS ORDERED: ZOLEDRONIC ACID 4 MG/100 ML RTU IV ONE (11:30)
--- NOTE | 2019-04-26 13:09 | PDOC PROGRESS REPORT ---
Subjective Progress Note for:: 04/26/19 Subjective:: The patient is a 44-year-old male, poor historian, but known to have a history of hypertension, DVT, metastatic lung cancer, DM type II, and tobacco dependency who was admitted 04/19/2019 for hypokalemia secondary to enterocolitis. Patient was seen on morning rounds. He was found resting in bed comfortably on room air. He reports nausea and vomiting over night, though feels well now and is noted to be eating scrambled eggs. He denies further episodes of diarrhea. He denies fever, chills, chest pain, palpitations, dyspnea, orthopnea, cough, abdominal pain, and diarrhea. He has no other questions or concerns. No specific concerns per nursing. Reason For Visit: HYPOKALEMIA,ACUTE ENTERITIS,PNEUMONIA Physical Exam Vital Signs: Temp Pulse Resp BP Pulse Ox 98.9 F 121 H 20 162/95 H 94 04/26/19 04:33 04/26/19 07:00 04/26/19 04:33 04/26/19 04:33 04/26/19 04:33 Intake & Output 04/25/19 04/26/19 04/27/19 06:59 06:59 06:59 Intake Total 2874 509 5277 Output Total 200 600 Balance 1120 0 2240 Weight 72.6 kg 70.5 kg General appearance: PRESENT: no acute distress, thin, well-developed, well- nourished Head exam: PRESENT: atraumatic, normocephalic Eye exam: PRESENT: conjunctiva pink, EOMI, PERRLA. ABSENT: scleral icterus Ear exam: PRESENT: normal external ear exam Mouth exam: PRESENT: moist, tongue midline Neck exam: ABSENT: carotid bruit, JVD, lymphadenopathy, thyromegaly Respiratory exam: PRESENT: clear to auscultation emily, decreased breath sounds, symmetrical, unlabored. ABSENT: rales, rhonchi, wheezes Cardiovascular exam: PRESENT: RRR, +S1, +S2, tachycardia. ABSENT: diastolic murmur, rubs, systolic murmur Pulses: PRESENT: normal dorsalis pedis pul Vascular exam: PRESENT: normal capillary refill GI/Abdominal exam: PRESENT: normal bowel sounds, soft. ABSENT: distended, guarding, mass, organolmegaly, rebound, tenderness Rectal exam: PRESENT: deferred Extremities exam: PRESENT: full ROM. ABSENT: calf tenderness, clubbing, pedal edema Neurological exam: PRESENT: alert, awake, oriented to person, oriented to place, oriented to time, oriented to situation, CN II-XII grossly intact. ABSENT: motor sensory deficit Psychiatric exam: PRESENT: flat affect, normal mood. ABSENT: homicidal ideation, suicidal ideation Skin exam: PRESENT: dry, intact, warm. ABSENT: cyanosis, rash Results Laboratory Results: 04/25/19 04:11 04/26/19 03:58 04/26/19 03:58 Sodium 132.6 L Potassium 3.5 L Chloride 94 L Carbon Dioxide 29 Anion Gap 10 BUN 8 Creatinine 0.91 Est GFR ( Amer) > 60 Est GFR (Non-Af Amer) > 60 Glucose 170 H Calcium 12.3 H* Magnesium 0.8 L* Impressions: Chest X-Ray 04/19/19 16:10 IMPRESSION: Diffuse airspace opacity at the right lung with masslike consolidation at the right upper lobe and mediastinal shift to the right. Left lung nodules. Small right pleural effusion. CT thorax can help in further evaluation. Chest/Abdomen CTA 04/19/19 17:49 IMPRESSION: 1. Acute pulmonary embolus at the right main pulmonary artery. 2. Masslike consolidation at the right upper lobe extending into the right hilum and mediastinum, probably corresponding to patient's known malignancy. 3. Consolidation with air bronchograms at the right lower lobe, may be secondary to progression of malignancy versus pneumonia. 4. Nodular densities at the trachea and right mainstem bronchus, endobronchial lesions cannot be excluded. 5. Moderate right pleural effusion. 6. Multiple bilateral pulmonary nodules and mediastinal adenopathy, most consistent with metastatic disease. 7. Small pericardial effusion. 8. Diffuse chest wall edema. Bilateral gynecomastia. 9. Osseous metastatic lesion at the posterior aspect of T10 vertebral body. Contrast-enhanced MRI can help to evaluate for extension into the spinal canal. Abdomen/Pelvis CT 04/19/19 17:57 IMPRESSION: 1. Air-fluid levels throughout the small bowel, colon and at the rectum, may be seen with enterocolitis. 2. Mild colonic diverticulosis. 3. Osseous metastasis at T10 vertebral body. 4. 1.1 cm sclerotic lesion at the left acetabulum, indeterminate. Assessment and Plan - Diagnosis (1) Hypokalemia Is this a current diagnosis for this admission?: Yes Plan: Improved. Secondary to poor p.o. intake and GI losses Patient is receiving scheduled p.o. potassium 40 mEq daily (home dose) each morning Start p.o. potassium 20 mEq daily w/ dinner We will continue to monitor serial chemistries and replace as indicated. (2) Hypomagnesemia Is this a current diagnosis for this admission?: Yes Plan: Replete. Secondary to bone metastasis, hypercalcemia, poor p.o. intake and GI losses Continue oral supplementation magnesium oxide 800 mg TID. Will provide additional IV replacement today as well. Follow-up magnesium level in a.m. (3) Enterocolitis Is this a current diagnosis for this admission?: Yes Plan: Resolved; patient reports that symptoms have resolved. Likely secondary to chemotherapy treatment. C. difficile PCR is negative. Hemoccult is negative. Stool is negative for WBCs. Stool culture Demonstrates colonized VRE Continue lactobacillus and Imodium as needed. (4) Carcinoma of lung Qualifiers: Laterality: unspecified laterality Qualified Code(s): C34.90 - Malignant neoplasm of unspecified part of unspecified bronchus or lung Is this a current diagnosis for this admission?: Yes Plan: No acute care for this problem; symptomatic and supportive care. Continue the patient's outpatient pain medication regiment. Patient was able to contact his wet end operator; she has faxed over recent medical records and chest imaging. Dr. Reynolds consulted to assist with management; appreciate her evaluation and recommendations. Has signed off. (5) Diabetes mellitus type 2 in nonobese Is this a current diagnosis for this admission?: Yes Plan: A1c is 6.5%. He is placed on a consistent carb/cardiac diet. Continue Lantus 5 units twice daily and sliding scale coverage. Hypoglycemia protocol is in place. (6) Essential hypertension Is this a current diagnosis for this admission?: Yes Plan: Patient endorses a history of hypertension; hypertension today. Consistent carb/cardiac diet. Discontinued carvedilol and started on Toprol 50 mg twice daily for improved blood pressure and heart rate control. (7) Infiltrate of right lung present on chest x-ray Is this a current diagnosis for this admission?: Yes Plan: Afebrile >48 hours He has had tachypnea, overall improved (28->18), tachycardia is improved (though persistent related to pulmonary embolus) Chest x-ray and CTA of the chest concerning for consolidation with air bronchograms at the right lower lobe; possible secondary to progression of his malignancy versus pneumonia. Patient does have a normal WBC and acceptable ANC. Blood cultures are negative at 5 days. Sputum cultures show c. albicans and normal respiratory erick. The patient was empirically been placed on IV azithromycin, vancomycin, and Z osyn for treatment of healthcare associated pneumonia in an immunocompromised patient. Discontinue Vancomycin. Recieved 4 days therapy IV azithromycin discontinued; received full course of therapy. IV Zosyn discontinued; received 5 days of therapy. Continue Augmentin; total 10-day course of therapy. As needed nebulizer treatments. Tylenol as needed for fever. Incentive spirometer and flutter valve to bedside. (8) Pulmonary embolism Qualifiers: Pulmonary embolism type: other Chronicity: unspecified Acute cor pulmonale presence: without acute cor pulmonale Qualified Code(s): I26.99 - Other pulmonary embolism without acute cor pulmonale Is this a current diagnosis for this admission?: Yes Plan: Patient has been placed on a heparin protocol for pulmonary embolism. Patient's primary nurse was able to discuss the patient's case with his wet end operator at [facility]. Patient was previously on Xarelto for treatment of a right arm DVT. Patient reports that he stopped the Xarelto approximately 1 week prior to admission due to development of hemoptysis. He does have an IVC filter in place. Attempted to contact the patient's established oncologist, Dr. Batista. Unfortunately calls were not returned either day messages were left. Discussed with Dr. Hylton; have resumed the patient's previous Xarelto therapy. Heparin drip is discontinued. Have resumed Xarelto. (9) Tobacco use disorder, severe, dependence Is this a current diagnosis for this admission?: Yes Plan: Smoking cessation has been advised. A nicotine replacement patch will be available for the patient's use. (10) Anemia Qualifiers: Anemia type: unspecified type Qualified Code(s): D64.9 - Anemia, unspecified Is this a current diagnosis for this admission?: Yes Plan: Chronic; appears to have stabilized. Likely multifactorial secondary to Poor nutrition, malignancy, and hemodilution (patient has received approximately 10 L of IV fluid since admission). Hgb 9.9-> 7.3-> 8.9 (s/p 1 unit PRBC)-> 7.5-> 8.7 (s/p 1 unit PRBC)-> 9.3 Has received 2 units PRBC total. Urinalysis and Hemoccult are negative for blood; recheck again negative Hemoptysis has resolved. Heme/Onc consulted; discussed with Dr. Hylton. Although the patient has required 2 units PRBC, there is no evidence of continued active bleeding at this time. Safe to resume Xarelto. We will monitor CBC and transfuse for hemoglobin less than 8. (11) Tachycardia Is this a current diagnosis for this admission?: Yes Plan: Unclear etiology; likely multifactorial secondary to lung cancer with metastasis, pulmonary embolus, and resolving pneumonia. Patient tells me that his heart rate does run high but he is unable to specify his usual range. Dehydration has been corrected. Initially monitor to determine if heart rate would improve with resolution of his pneumonia. He remains persistently tachycardic with average heart rate in the 120s while at rest. Increase of Coreg had no effect. Continue metoprolol 50 mg twice daily. Have resumed IVF. IV Lopressor as needed for rate control. Consider addition of calcium channel dionne. Repeat CTA Chest today (12) Nausea and vomiting Is this a current diagnosis for this admission?: Yes Plan: Continue IVF. Antiemetics as needed. Continue home dose prednisone. Avoid PPI secondary to hypo-magnesium. Head CT and CT ABD/Pelvis pending. (13) Hypercalcemia Is this a current diagnosis for this admission?: Yes Plan: IV fluids followed by Lasix. Zometa 4 mg x 1 today. Daily chemistry. - Time Time Spent with patient: 25-34 minutes
--- NOTE | 2019-04-26 14:23 | RADIOLOGY REPORT (SQ) ---
EXAM DESCRIPTION: CT HEAD WITHOUT COMPLETED DATE/TIME: 04/26/2019 1:40 pm REASON FOR STUDY: Vomiting, known CA w/ mets COMPARISON: None. TECHNIQUE: Axial images acquired through the brain without intravenous contrast. Images reviewed wi th bone, brain and subdural windows. Additional sagittal and coronal reconstructions were generated. Images stored on PACS. All CT scanners at this facility use dose modulation, iterative reconstruction, and/or weight based d osing when appropriate to reduce radiation dose to as low as reasonably achievable (ALARA). [facility]: Dose Right [facility]: CareDose [facility]: Dose Right [facility]: Teradose 4D [facility]: Smart Sellbox RADIATION DOSE: CT Rad equipment meets quality standard of care and radiation dose reduction techniq ues were employed. CTDIvol: 53.2 mGy. DLP: 937 mGy-cm. mGy. LIMITATIONS: None. FINDINGS: VENTRICLES: Normal size and contour. Tiny bubbles of gas in the frontal horns. CEREBRUM: No masses. No hemorrhage. No midline shift. No evidence for acute infarction. Normal gra y/white matter differentiation. No areas of low density in the white matter. CEREBELLUM: No masses. No hemorrhage. No alteration of density. No evidence for acute infarction. EXTRAAXIAL SPACES: No fluid collections. No masses. ORBITS AND GLOBE: No intra- or extraconal masses. Normal contour of globe without masses. CALVARIUM: Occipital craniectomy. No fracture. PARANASAL SINUSES: No fluid or mucosal thickening. SOFT TISSUES: No mass or hematoma. OTHER: No other significant finding. IMPRESSION: SURGICAL CHANGES WITH OCCIPITAL CRANIECTOMY. TINY BUBBLES OF GAS IN THE FRONTAL HORNS O F THE LATERAL VENTRICLES PRESUMABLY RELATED TO SURGERY. NO OTHER SIGNIFICANT OR ACUTE FINDINGS. EVIDENCE OF ACUTE STROKE: NO. COMMENT: Quality ID # [id number]: Final reports with documentation of one or more dose reduction techniques (e.g., Automated exposure control, adjustment of the mA and/or kV according to patient size, use of iterative reconstruction technique) TECHNICAL DOCUMENTATION: JOB ID: [id number] [employer]- All Rights Reserved Reading location - IP/workstation name: [email or web address]
[2019-04-26] MEDS: MAGNESIUM SULFATE 1 GM/D5W 100 ML IV SCH ×2 (14:41→16:16)
[2019-04-26] MEDS: MAGNESIUM SULFATE/D5W 1 GM/100 ML RTUPB IV SCH ×2 (14:45→14:49)
[2019-04-26] MEDS: RIVAROXABAN 10 MG TABLET PO SCH (16:16)
[2019-04-27] MEDS: ACETAMINOPHEN 325 MG TABLET PO PRN (04:10)
[2019-04-27] MEDS: OXYCODONE HCL IR 5 MG TABLET PO PRN ×3 (04:10→18:05)
[2019-04-27] MEDS: ONDANSETRON HCL INJ/PF 4 MG/2 ML SDV IV PRN (04:31)
[2019-04-27] MEDS: AMOXICILLIN TR/POT CLAVULANATE 500-125 MG TAB PO SCH ×3 (05:37→22:37)
[2019-04-27 06:26] LABS: HEMOGLOBIN 8.8 g/dL (13.5-17.0); MEAN CORPUSCULAR HGB CONC 33.7 g/dL (32.0-36.0); MEAN CORPUSCULAR VOLUME 92 fl (80-97); PLATELET COUNT 377 10^3/uL (150-450); RED BLOOD COUNT 2.83 10^6/uL (4.35-5.55); RED CELL DISTRIBUTION WIDTH 18.9 % (11.5-14.0); WHITE BLOOD COUNT 8.8 10^3/uL (4.0-10.5)
[2019-04-27 06:49] LABS: ABSOLUTE LYMPHOCYTES# (MANUAL) 0.3 10^3/uL (0.5-4.7); ABSOLUTE MONOCYTES # (MANUAL) 0.3 10^3/uL (0.1-1.4); BASOPHILS % (MANUAL) 0 % (0-2); EOSINOPHILS % (MANUAL) 0 % (0-6); LYMPHOCYTES % (MANUAL) 3 % (13-45); MONOCYTES % (MANUAL) 3 % (3-13); SEGMENTED NEUTROPHILS % (MAN) 94 % (42-78); TOTAL CELLS COUNTED 100
[2019-04-27 06:50] LABS: ALANINE AMINOTRANSFERASE 12 U/L (21-72); ALBUMIN 2.8 g/dL (3.5-5.0); ALKALINE PHOSPHATASE 74 U/L (38-126); ANION GAP 8 (5-19); ASPARTATE AMINO TRANSFERASE 10 U/L (17-59); BILIRUBIN,DIRECT 0.3 mg/dL (0.0-0.4); BILIRUBIN,TOTAL 0.4 mg/dL (0.2-1.3); BLOOD UREA NITROGEN 10 mg/dL (7-20); CALCIUM 11.5 mg/dL (8.4-10.2); CARBON DIOXIDE 31 mmol/L (22-30); CHLORIDE 95 mmol/L (98-107); GLUCOSE 161 mg/dL (75-110); PHOSPHORUS 2.9 mg/dL (2.5-4.5); PLATELET COMMENT ADEQUATE; TOTAL PROTEIN 5.4 g/dL (6.3-8.2)
[2019-04-27 06:51] LABS: ANISOCYTOSIS 2+; HYPOCHROMASIA 1+; POIKILOCYTOSIS SLIGHT; POTASSIUM 3.3 mmol/L (3.6-5.0)
[2019-04-27] MEDS ORDERED: MAGNESIUM SULFATE 4 GM/100 ML RTUPB IV ONE (09:00)
[2019-04-27] MEDS: METOPROLOL TARTRATE 50 MG TABLET PO SCH ×2 (09:13→22:38)
[2019-04-27] MEDS: MAGNESIUM OXIDE 400 MG TABLET PO SCH ×3 (09:13→17:53)
[2019-04-27] MEDS: INSULIN GLARGINE,HUM.REC.ANLOG 1,000 UNIT/10 ML VIAL SUBCUT SCH ×2 (09:14→22:39)
[2019-04-27] MEDS: POTASSIUM CHLORIDE 10 MEQ CAPSULE.ER PO SCH (09:14)
[2019-04-27] MEDS: INSULIN LISPRO 100 UNIT/ML 3 ML VIAL SUBCUT SCH ×4 (09:14→22:38)
[2019-04-27] MEDS: PREDNISONE 10 MG TABLET PO SCH (09:15)
[2019-04-27] MEDS: LACTOBACILLUS ACIDOPHILUS 250 MG TAB PO SCH ×2 (09:16→17:53)
[2019-04-27] MEDS: MORPHINE SULFATE SR 30 MG TABLET PO SCH (09:17)
[2019-04-27] MEDS: POTASSIUM CHLORIDE 20 MEQ PACKET PO SCH ×2 (09:17→17:54)
--- NOTE | 2019-04-27 09:45 | PDOC PROGRESS REPORT ---
Subjective Progress Note for:: 04/27/19 Subjective:: The patient is a 44-year-old male, poor historian, but known to have a history of hypertension, DVT, metastatic lung cancer, DM type II, and tobacco dependency who was admitted 04/19/2019 for hypokalemia secondary to enterocolitis. Patient is seen resting in bed. He is awake and alert. He is oriented x3. He is difficult to engage in conversation. He states he continues to feel "awful". He cannot specify where. He tells me he just feels bad all over. He continues to have mostly nonproductive cough which is harsh. He states this makes since entire body hurt. He denies any nausea, vomiting or abdominal pain. He denies any diarrhea dysuria. He denies any constipation. He states he just aches all over. He denies any other complaints at the present time. Reason For Visit: HYPOKALEMIA,ACUTE ENTERITIS,PNEUMONIA Physical Exam Vital Signs: Temp Pulse Resp BP Pulse Ox 98.9 F 119 H 16 128/72 H 95 04/27/19 08:28 04/27/19 08:28 04/27/19 08:28 04/27/19 08:28 04/27/19 08:28 Intake & Output 04/26/19 04/27/19 04/28/19 06:59 06:59 06:59 Intake Total 600 3920 Output Total 600 525 Balance 0 3395 Weight 70.5 kg 70.4 kg General appearance: PRESENT: no acute distress, well-developed, well-nourished Head exam: PRESENT: atraumatic, normocephalic Eye exam: PRESENT: conjunctiva pink, EOMI, PERRLA. ABSENT: scleral icterus Ear exam: PRESENT: normal external ear exam Mouth exam: PRESENT: moist, tongue midline Neck exam: ABSENT: carotid bruit, JVD, lymphadenopathy, thyromegaly Respiratory exam: PRESENT: rhonchi - Bilaterally, symmetrical, unlabored Cardiovascular exam: PRESENT: RRR. ABSENT: diastolic murmur, rubs, systolic murmur Pulses: PRESENT: normal dorsalis pedis pul Vascular exam: PRESENT: normal capillary refill GI/Abdominal exam: PRESENT: normal bowel sounds, soft. ABSENT: distended, guarding, mass, organolmegaly, rebound, tenderness Rectal exam: PRESENT: deferred Extremities exam: PRESENT: full ROM. ABSENT: calf tenderness, clubbing, pedal edema Neurological exam: PRESENT: alert, awake, oriented to person, oriented to place, oriented to time, oriented to situation, CN II-XII grossly intact. ABSENT: motor sensory deficit Psychiatric exam: PRESENT: depressed, flat affect Skin exam: PRESENT: dry, intact, warm. ABSENT: cyanosis, rash Results Laboratory Results: 04/27/19 06:13 04/27/19 06:13 04/27/19 04/27/19 06:13 06:13 WBC 8.8 RBC 2.83 L Hgb 8.8 L Hct 26.0 L MCV 92 MCH 31.0 MCHC 33.7 RDW 18.9 H Plt Count 377 Seg Neutrophils % Not Reportable Lymphocytes % Not Reportable Monocytes % Not Reportable Eosinophils % Not Reportable Basophils % Not Reportable Absolute Neutrophils Not Reportable Absolute Lymphocytes Not Reportable Absolute Monocytes Not Reportable Absolute Eosinophils Not Reportable Absolute Basophils Not Reportable Sodium 134.2 L Potassium 3.3 L Chloride 95 L Carbon Dioxide 31 H Anion Gap 8 BUN 10 Creatinine 0.88 Est GFR ( Amer) > 60 Est GFR (Non-Af Amer) > 60 Glucose 161 H Calcium 11.5 H Phosphorus 2.9 Magnesium 1.0 L* Total Bilirubin 0.4 AST 10 L ALT 12 L Alkaline Phosphatase 74 Total Protein 5.4 L Albumin 2.8 L Impressions: Chest X-Ray 04/19/19 16:10 IMPRESSION: Diffuse airspace opacity at the right lung with masslike consolidation at the right upper lobe and mediastinal shift to the right. Left lung nodules. Small right pleural effusion. CT thorax can help in further evaluation. Chest/Abdomen CTA 04/19/19 17:49 IMPRESSION: 1. Acute pulmonary embolus at the right main pulmonary artery. 2. Masslike consolidation at the right upper lobe extending into the right hilum and mediastinum, probably corresponding to patient's known malignancy. 3. Consolidation with air bronchograms at the right lower lobe, may be secondary to progression of malignancy versus pneumonia. 4. Nodular densities at the trachea and right mainstem bronchus, endobronchial lesions cannot be excluded. 5. Moderate right pleural effusion. 6. Multiple bilateral pulmonary nodules and mediastinal adenopathy, most consistent with metastatic disease. 7. Small pericardial effusion. 8. Diffuse chest wall edema. Bilateral gynecomastia. 9. Osseous metastatic lesion at the posterior aspect of T10 vertebral body. Contrast-enhanced MRI can help to evaluate for extension into the spinal canal. Abdomen/Pelvis CT 04/19/19 17:57 IMPRESSION: 1. Air-fluid levels throughout the small bowel, colon and at the rectum, may be seen with enterocolitis. 2. Mild colonic diverticulosis. 3. Osseous metastasis at T10 vertebral body. 4. 1.1 cm sclerotic lesion at the left acetabulum, indeterminate. Head CT 04/26/19 00:00 IMPRESSION: SURGICAL CHANGES WITH OCCIPITAL CRANIECTOMY. TINY BUBBLES OF GAS IN THE FRONTAL HORNS OF THE LATERAL VENTRICLES PRESUMABLY RELATED TO SURGERY. NO OTHER SIGNIFICANT OR ACUTE FINDINGS. EVIDENCE OF ACUTE STROKE: NO. Assessment and Plan - Diagnosis (1) Pulmonary embolism Qualifiers: Pulmonary embolism type: other Chronicity: unspecified Acute cor pulmonale presence: without acute cor pulmonale Qualified Code(s): I26.99 - Other pulmonary embolism without acute cor pulmonale Is this a current diagnosis for this admission?: Yes Plan: Patient has been placed on a heparin protocol for pulmonary embolism. Patient's primary nurse was able to discuss the patient's case with his supply and distribution manager at [facility]. Patient was previously on Xarelto for treatment of a right arm DVT. Patient reports that he stopped the Xarelto approximately 1 week prior to admission due to development of hemoptysis. He does have an IVC filter in place. Attempted to contact the patient's established oncologist, Dr. Batista. Unfortunately calls were not returned either day messages were left. Discussed with Dr. Hylton; have resumed the patient's previous Xarelto therapy. Heparin drip is discontinued. Have resumed Xarelto. (2) Pneumonia Qualifiers: Laterality: right Lung location: unspecified part of lung Is this a current diagnosis for this admission?: Yes Plan: patient doesn't have an elevated temperature, no elevation of WBC, his hemoptysis has resolved. He does have occasional productive cough for yellowish sputum. His lungs are clear to auscultation. His pneumonia is resolving. His blood cultures had no growth x 72 hours. He completed course of antibiotic therapy. No signs of recurrent pneumonia (3) Elevated temperature Is this a current diagnosis for this admission?: Yes Plan: Patient has continued to have low-grade fever despite treatment for antibiotics. His cultures are all negative. He does not need antibiotics at the present time. (4) Essential hypertension Is this a current diagnosis for this admission?: Yes Plan: Patient endorses a history of hypertension; hypertension today. Consistent carb/cardiac diet. Discontinued carvedilol and started on Toprol 50 mg twice daily for improved blood pressure and heart rate control. (5) Hypokalemia Is this a current diagnosis for this admission?: Yes Plan: Please and monitor. (6) Hypomagnesemia Is this a current diagnosis for this admission?: Yes Plan: These is 1.0 today. Will replete with 4 g IV and start him on magnesium oxide 400 mg twice daily. (7) Infiltrate of right lung present on chest x-ray Is this a current diagnosis for this admission?: Yes Plan: As needed nebulizer treatments. Tylenol as needed for fever. Incentive spirometer and flutter valve to bedside. (8) Sepsis Qualifiers: Sepsis type: sepsis due to unspecified organism Qualified Code(s): A41.9 - Sepsis, unspecified organism Is this a current diagnosis for this admission?: Yes Plan: Ruled out. (9) Tachycardia Is this a current diagnosis for this admission?: Yes Plan: Unclear etiology; likely multifactorial secondary to lung cancer with metastasis, pulmonary embolus, and resolving pneumonia. Patient tells me that his heart rate does run high but he is unable to specify his usual range. Dehydration has been corrected. Initially monitor to determine if heart rate would improve with resolution of his pneumonia. He remains persistently tachycardic with average heart rate in the 120s while at rest. Continue metoprolol 50 twice daily. (10) Tobacco use disorder, severe, dependence Is this a current diagnosis for this admission?: Yes Plan: Smoking cessation has been advised. A nicotine replacement patch will be available (11) Diabetes mellitus type 2 in nonobese Is this a current diagnosis for this admission?: Yes
[2019-04-27] MEDS: DOCUSATE SODIUM 100 MG CAPSULE PO SCH ×2 (11:21→17:34)
--- NOTE | 2019-04-27 14:03 | RADIOLOGY REPORT (SQ) ---
EXAM DESCRIPTION: CTA CHEST COMPLETED DATE/TIME: 04/27/2019 12:54 pm REASON FOR STUDY: persistent tachycardia COMPARISON: 04/19/2019. TECHNIQUE: CT scan of the chest performed using helical scanning technique with dynamic intravenous contrast injection. Images reviewed with lung, soft tissue and bone windows. Reconstructed coronal and sagittal MPR images reviewed. Additional 3 dimensional post-processing performed to develop Maximal Intensity Projection images (OK P). All images stored on PACS. All CT scanners at this facility use dose modulation, iterative reconstruction, and/or weight based d osing when appropriate to reduce radiation dose to as low as reasonably achievable (ALARA). [facility]: Dose Right [facility]: CareDose [facility]: Dose Right [facility]: Teradose 4D [facility]: qLearning CONTRAST TYPE AND DOSE: 64 mL Omnipaque 350- low osmolar. Contrast bolus optimized for the pulmonary arteries. Not diagnostic for the aorta. RENAL FUNCTION: BUN 8 creatinine 0.91. RADIATION DOSE: . LIMITATIONS: None. FINDINGS: LUNGS AND PLEURA: Again seen is extensive dense consolidation in the right upper lobe with complete opacification. Moderate right pleural effusion. Numerous pulmonary nodules in both lungs. Faint ground-glass opacity in the anterior left upper lobe. AORTA AND GREAT VESSELS: No aneurysm. Contrast bolus not optimized for the aorta. HEART: No pericardial effusion. No significant coronary artery calcifications. PULMONARY ARTERIES: Filling defect with complete occlusion of the right upper lobe pulmonary artery. HILAR AND MEDIASTINAL STRUCTURES: Confluent right hilar and subcarinal soft tissue mass. HARDWARE: None in the chest. UPPER ABDOMEN: See separate report of the CT of the abdomen. THYROID AND OTHER SOFT TISSUES: No masses. No adenopathy. BONES: Again seen is a lytic lesion in the left side of the T10 vertebral body. 3D MIPS: Confirm above findings. OTHER: No other significant finding. IMPRESSION: 1. 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 2. EXTENSIVE DENSE MASSLIKE CONSOLIDATION IN THE RIGHT UPPER LOBE. MODERATE RIGHT PLEURAL EFFUSION. NUMEROUS BILATERAL PULMONARY NODULES. 3. LYTIC LESION IN THE LEFT SIDE OF THE T10 VERTEBRAL BODY. 4. NO SIGNIFICANT CHANGE IN THE ABOVE FINDINGS FROM THE PREVIOUS STUDY. COMMENT: Quality ID # [id number]: Final reports with documentation of one or more dose reduction techniques (e.g., Automated exposure control, adjustment of the mA and/or kV according to patient size, use of iterative reconstruction technique) TECHNICAL DOCUMENTATION: JOB ID: [id number] [employer]- All Rights Reserved Reading location - IP/workstation name: [email or web address]
--- NOTE | 2019-04-27 14:12 | RADIOLOGY REPORT (SQ) ---
EXAM DESCRIPTION: CT ABD/PELVIS WITH IV ONLY COMPLETED DATE/TIME: 04/27/2019 12:54 pm REASON FOR STUDY: Vomiting, known CA w/ mets COMPARISON: 04/19/2019. TECHNIQUE: CT scan of the abdomen and pelvis performed using helical scanning technique with dynamic intravenous contrast injection. No oral contrast. Images reviewed with lung, soft tissue, and bone windows. Reconstructed coronal and sagittal MPR images reviewed. Delayed images for evaluation of the urinary system also acquired. All images stored on PACS. All CT scanners at this facility use dose modulation, iterative reconstruction, and/or weight based d osing when appropriate to reduce radiation dose to as low as reasonably achievable (ALARA). [facility]: Dose Right [facility]: CareDose [facility]: Dose Right [facility]: Teradose 4D [facility]: BIlprospekt CONTRAST TYPE AND DOSE: contrast/concentration: Isovue 350.00 mg/ml; Total Contrast Delivered: 64.0 ml; Total Saline Delivered: 85.0 ml RENAL FUNCTION: BUN 8 creatinine 0.91. RADIATION DOSE: CT Rad equipment meets quality standard of care and radiation dose reduction techniq ues were employed. CTDIvol: 4.1 - 19.7 mGy. DLP: 1159 mGy-cm.. LIMITATIONS: None. FINDINGS: LOWER CHEST: See separate report of the CT of the chest. LIVER: Normal size. No masses. No dilated ducts. SPLEEN: Normal size. No focal lesions. PANCREAS: No masses. No significant calcifications. No adjacent inflammation or peripancreatic fluid collections. Pancreatic duct not dilated. GALLBLADDER: No identified stones by CT criteria. No inflammatory changes to suggest cholecystitis. ADRENAL GLANDS: No significant masses or asymmetry. RIGHT KIDNEY AND URETER: No solid masses. No significant calcifications. No hydronephrosis or hyd roureter. LEFT KIDNEY AND URETER: No solid masses. No significant calcifications. No hydronephrosis or hydr oureter. AORTA AND VESSELS: Inferior vena cava filter. No aneurysm. No dissection. Renal arteries, SMA, irma c without stenosis. RETROPERITONEUM: No retroperitoneal adenopathy, hemorrhage or masses. BOWEL AND PERITONEAL CAVITY: Mildly dilated small bowel with fluid and gas throughout. Fluid and sto ol throughout the colon. No masses or inflammatory changes. No free fluid or peritoneal masses. APPENDIX: Surgically absent. PELVIS: No mass. No free fluid. Normal bladder. ABDOMINAL WALL: No masses. No hernias. BONES: Lytic lesion on the left side of the T10 vertebral body. Probably benign sclerotic lesion in the left acetabulum. OTHER: No other significant finding. IMPRESSION: 1. CONTINUED MILD SMALL BOWEL DILATION THROUGHOUT THE ABDOMEN. MAY BE DUE TO ILEUS. MECHANICAL OBST RUCTION LESS LIKELY. IF THERE IS SUSPICION OF MECHANICAL OBSTRUCTION, MAY CONSIDER FOLLOW-UP STUDY W ITH ORAL CONTRAST. 2. SMALL LYTIC LESION IN THE LEFT SIDE OF THE T10 VERTEBRAL BODY. ALSO SEEN ON THE PRIOR STUDY. PRO BABLE BENIGN SCLEROTIC LESION IN THE LEFT ACETABULUM. 3. NO OTHER SIGNIFICANT OR ACUTE FINDING IN THE ABDOMEN OR PELVIS ON CT SCAN WITH IV CONTRAST. TECHNICAL DOCUMENTATION: JOB ID: [id number] Quality ID # [id number]: Final reports with documentation of one or more dose reduction techniques (e.g., Au tomated exposure control, adjustment of the mA and/or kV according to patient size, use of iterative reconstruction technique) 2010 [employer]- All Rights Reserved Reading location - IP/workstation name: [email or web address]
[2019-04-27] MEDS: RIVAROXABAN 10 MG TABLET PO SCH (17:53)
[2019-04-28] MEDS ORDERED: MORPHINE SULFATE SR 30 MG TABLET PO ONE (00:30)
[2019-04-28] MEDS: OXYCODONE HCL IR 5 MG TABLET PO PRN ×3 (00:42→20:19)
[2019-04-28 06:33] LABS: ANION GAP 8 (5-19); BLOOD UREA NITROGEN 13 mg/dL (7-20); CALCIUM 9.6 mg/dL (8.4-10.2); CARBON DIOXIDE 30 mmol/L (22-30); CHLORIDE 94 mmol/L (98-107); GLUCOSE 166 mg/dL (75-110)
[2019-04-28] MEDS: AMOXICILLIN TR/POT CLAVULANATE 500-125 MG TAB PO SCH ×3 (06:40→22:45)
[2019-04-28] MEDS: DOCUSATE SODIUM 100 MG CAPSULE PO SCH ×2 (09:04→17:17)
[2019-04-28] MEDS: POTASSIUM CHLORIDE 10 MEQ CAPSULE.ER PO SCH (09:07)
[2019-04-28] MEDS: INSULIN LISPRO 100 UNIT/ML 3 ML VIAL SUBCUT SCH ×4 (09:07→22:45)
[2019-04-28] MEDS: PREDNISONE 10 MG TABLET PO SCH (09:07)
[2019-04-28] MEDS: MAGNESIUM OXIDE 400 MG TABLET PO SCH ×3 (09:08→17:17)
[2019-04-28] MEDS: LACTOBACILLUS ACIDOPHILUS 250 MG TAB PO SCH ×2 (09:08→17:16)
[2019-04-28] MEDS: INSULIN GLARGINE,HUM.REC.ANLOG 1,000 UNIT/10 ML VIAL SUBCUT SCH ×2 (09:08→22:45)
[2019-04-28] MEDS: POTASSIUM CHLORIDE 20 MEQ PACKET PO SCH ×2 (09:08→16:52)
[2019-04-28] MEDS: METOPROLOL TARTRATE 50 MG TABLET PO SCH ×2 (09:09→22:46)
[2019-04-28] MEDS: MORPHINE SULFATE SR 30 MG TABLET PO SCH ×2 (09:09→22:46)
--- NOTE | 2019-04-28 11:43 | Progress Note Acknowledgement ---
Progress Note Acknowledgement Progess Note Acknowledgement: I, the undersigned member of the medical staff with appropriate privileges and with supervisory authority over [Rhys Andrade], a dependent practice allied health professional, acknowledge that I have reviewed the progress notes entered on this patient, and in my professional judgment believe that the assessment made and/or any care evidenced was appropriate
[2019-04-28] MEDS ORDERED: MAGNESIUM SULFATE/D5W 1 GM/100 ML RTUPB IV ONE (11:46)
--- NOTE | 2019-04-28 11:50 | PDOC PROGRESS REPORT ---
Subjective Progress Note for:: 04/28/19 Subjective:: No complaints this a.m. Reason For Visit: HYPOKALEMIA,ACUTE ENTERITIS,PNEUMONIA Physical Exam Vital Signs: Temp Pulse Resp BP Pulse Ox 98.3 F 102 H 18 110/62 98 04/28/19 07:42 04/28/19 07:42 04/28/19 07:42 04/28/19 07:42 04/28/19 07:42 Intake & Output 04/27/19 04/28/19 04/29/19 06:59 06:59 06:59 Intake Total 3920 920 Output Total 525 1200 Balance 3395 -280 Weight 70.4 kg 71.7 kg General appearance: PRESENT: no acute distress, well-developed, well-nourished Neck exam: ABSENT: carotid bruit, JVD, lymphadenopathy, thyromegaly Respiratory exam: PRESENT: decreased breath sounds, wheezes Cardiovascular exam: PRESENT: RRR. ABSENT: diastolic murmur, rubs, systolic murmur Pulses: PRESENT: normal dorsalis pedis pul Vascular exam: PRESENT: normal capillary refill GI/Abdominal exam: PRESENT: normal bowel sounds, soft. ABSENT: distended, guarding, mass, organolmegaly, rebound, tenderness Extremities exam: PRESENT: full ROM. ABSENT: calf tenderness, clubbing, pedal edema Neurological exam: PRESENT: alert, awake, oriented to person, oriented to place, oriented to time, oriented to situation, CN II-XII grossly intact. ABSENT: motor sensory deficit Psychiatric exam: PRESENT: appropriate affect, normal mood. ABSENT: homicidal ideation, suicidal ideation Results Laboratory Results: 04/27/19 06:13 04/28/19 05:15 04/28/19 05:15 Sodium 132.3 L Potassium 4.0 Chloride 94 L Carbon Dioxide 30 Anion Gap 8 BUN 13 Creatinine 0.86 Est GFR ( Amer) > 60 Est GFR (Non-Af Amer) > 60 Glucose 166 H Calcium 9.6 Magnesium 1.4 L Impressions: Chest X-Ray 04/19/19 16:10 IMPRESSION: Diffuse airspace opacity at the right lung with masslike conso lidation at the right upper lobe and mediastinal shift to the right. Left lung nodules. Small right pleural effusion. CT thorax can help in further evaluation. Head CT 04/26/19 00:00 IMPRESSION: SURGICAL CHANGES WITH OCCIPITAL CRANIECTOMY. TINY BUBBLES OF GAS IN THE FRONTAL HORNS OF THE LATERAL VENTRICLES PRESUMABLY RELATED TO SURGERY. NO OTHER SIGNIFICANT OR ACUTE FINDINGS. EVIDENCE OF ACUTE STROKE: NO. Abdomen/Pelvis CT 04/27/19 11:00 IMPRESSION: 1. CONTINUED MILD SMALL BOWEL DILATION THROUGHOUT THE ABDOMEN. MAY BE DUE TO ILEUS. MECHANICAL OBSTRUCTION LESS LIKELY. IF THERE IS SUSPICION OF MECHANICAL OBSTRUCTION, MAY CONSIDER FOLLOW-UP STUDY WITH ORAL CONTRAST. 2. SMALL LYTIC LESION IN THE LEFT SIDE OF THE T10 VERTEBRAL BODY. ALSO SEEN ON THE PRIOR STUDY. PROBABLE BENIGN SCLEROTIC LESION IN THE LEFT ACETABULUM. 3. NO OTHER SIGNIFICANT OR ACUTE FINDING IN THE ABDOMEN OR PELVIS ON CT SCAN WITH IV CONTRAST. Chest/Abdomen CTA 04/27/19 11:00 IMPRESSION: 1. 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 2. EXTENSIVE DENSE MASSLIKE CONSOLIDATION IN THE RIGHT UPPER LOBE. MODERATE RIGHT PLEURAL EFFUSION. NUMEROUS BILATERAL PULMONARY NODULES. 3. LYTIC LESION IN THE LEFT SIDE OF THE T10 VERTEBRAL BODY. 4. NO SIGNIFICANT CHANGE IN THE ABOVE FINDINGS FROM THE PREVIOUS STUDY. Assessment and Plan - Diagnosis (1) Pulmonary embolism Qualifiers: Pulmonary embolism type: other Chronicity: unspecified Acute cor pulmonale presence: without acute cor pulmonale Qualified Code(s): I26.99 - Ot her pulmonary embolism without acute cor pulmonale Is this a current diagnosis for this admission?: Yes Plan: Patient has been placed on a heparin protocol for pulmonary embolism. 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 Patient was previously on Xarelto for treatme nt of a right arm DVT. Patient reports that he stopped the Xarelto approximately 1 week prior to admission due to development of hemoptysis. He does have an IVC filter in place. Attempted to contact the patient's established oncologist, Dr. Batista. Unfortunately calls were not returned either day messages were left. Discussed with Dr. Hylton; have resumed the patient's previous Xarelto therapy. Heparin drip is discontinued. Have resumed Xarelto. 04/28/2019-Xarelto has been resumed. Continue to follow. (2) Pneumonia Qualifiers: Laterality: right Lung location: unspecified part of lung Is this a current diagnosis for this admission?: Yes Plan: patient doesn't have an elevated temperature, no elevation of WBC, his hemoptysis has resolved. He does have occasional productive cough for yellowish sputum. His lungs are clear to auscultation. His pneumonia is resolving. His blood cultures had no growth x 72 hours. He completed course of antibiotic therapy. No signs of recurrent pneumonia 04/28/2019-no growth on blood cultures. Patient completed antibiotic course. Patient seems to be cleared at this time. (3) Hypokalemia Is this a current diagnosis for this admission?: Yes Plan: Please and monitor. 04/28/2019-stable at this time continue to follow patient is getting replacement potassium. BMP in the a.m. (4) Hypomagnesemia Is this a current diagnosis for this admission?: Yes Plan: These is 1.0 today. Will replete with 4 g IV and start him on magnesium oxide 400 mg twice daily. 04/28/2019-magnesium 1.4 this a.m. We will give 1 g IV magnesium in addition to his oral replacement at this time. Repeat magnesium level in a.m. (5) Diabetes mellitus type 2 in nonobese Is this a current diagnosis for this admission?: Yes Plan: A1c is 6.5%. He is placed on a consistent carb/cardiac diet. Continue Lantus 5 units twice daily and sliding scale coverage. Hypoglycemia protocol is in place. 04/28/2019-A1c 6.5. Continue current insulin coverage. May change plan of care based on patient needs. (6) Essential hypertension Is this a current diagnosis for this admission?: Yes Plan: Patient endorses a history of hypertension; hypertension today. Consistent carb/cardiac diet. Discontinued carvedilol and started on Toprol 50 mg twice daily for improved blood pressure and heart rate control. 04/28/2019-improved. Continue to follow. Continue blood pressure medications as ordered. - Time Time Spent with patient: 15-24 minutes - Inpatient Certification Based on my medical assessment, after consideration of the patient's comorbidities, presenting symptoms, or acuity I expect that the services needed warrant INPATIENT care.: Yes I certify that my determination is in accordance with my understanding of Medicare's requirements for reasonable and necessary INPATIENT services [42 CFR 412.3e].: Yes Medical Necessity: Need For Continuous Telemetry Monitoring
[2019-04-28 13:18] LABS: HEMATOCRIT 26.9 % (37.9-51.0); HEMOGLOBIN 8.9 g/dL (13.5-17.0); MEAN CORPUSCULAR HEMOGLOBIN 30.7 pg (27.0-33.4); MEAN CORPUSCULAR HGB CONC 33.2 g/dL (32.0-36.0); MEAN CORPUSCULAR VOLUME 93 fl (80-97); PLATELET COUNT 386 10^3/uL (150-450); RED BLOOD COUNT 2.91 10^6/uL (4.35-5.55); RED CELL DISTRIBUTION WIDTH 19.3 % (11.5-14.0); WHITE BLOOD COUNT 7.4 10^3/uL (4.0-10.5)
[2019-04-28 13:50] LABS: ANION GAP 8 (5-19); BLOOD UREA NITROGEN 14 mg/dL (7-20); CALCIUM 9.2 mg/dL (8.4-10.2); CARBON DIOXIDE 29 mmol/L (22-30); CHLORIDE 94 mmol/L (98-107); GLUCOSE 211 mg/dL (75-110); POTASSIUM 4.6 mmol/L (3.6-5.0)
[2019-04-28] MEDS: RIVAROXABAN 10 MG TABLET PO SCH (16:52)
[2019-04-28] MEDS: ONDANSETRON HCL INJ/PF 4 MG/2 ML SDV IV PRN (20:24)
[2019-04-29] MEDS: AMOXICILLIN TR/POT CLAVULANATE 500-125 MG TAB PO SCH ×3 (05:33→21:59)
[2019-04-29] MEDS: INSULIN LISPRO 100 UNIT/ML 3 ML VIAL SUBCUT SCH ×4 (08:07→22:01)
[2019-04-29] MEDS: PREDNISONE 10 MG TABLET PO SCH (08:30)
[2019-04-29] MEDS: OXYCODONE HCL IR 5 MG TABLET PO PRN ×2 (08:39→22:06)
--- NOTE | 2019-04-29 09:09 | PDOC PROGRESS REPORT ---
Subjective Progress Note for:: 04/29/19 Subjective:: No complaints this a.m. 04/29/2019-no complaints this a.m. Reason For Visit: HYPOKALEMIA,ACUTE ENTERITIS,PNEUMONIA Physical Exam Vital Signs: Temp Pulse Resp BP Pulse Ox 98.4 F 107 H 16 130/60 H 100 04/29/19 07:44 04/29/19 07:44 04/29/19 07:44 04/29/19 07:44 04/29/19 07:44 Intake & Output 04/28/19 04/29/19 04/30/19 06:59 06:59 06:59 Intake Total 920 2137 Output Total 1200 Balance -280 2137 Weight 71.7 kg 72.5 kg General appearance: PRESENT: no acute distress, well-developed, well-nourished Neck exam: ABSENT: carotid bruit, JVD, lymphadenopathy, thyromegaly Respiratory exam: PRESENT: clear to auscultation emily. ABSENT: rales, rhonchi, wheezes Cardiovascular exam: PRESENT: RRR. ABSENT: diastolic murmur, rubs, systolic murmur Pulses: PRESENT: normal dorsalis pedis pul Vascular exam: PRESENT: normal capillary refill GI/Abdominal exam: PRESENT: normal bowel sounds, soft. ABSENT: distended, guarding, mass, organolmegaly, rebound, tenderness Extremities exam: PRESENT: full ROM. ABSENT: calf tenderness, clubbing, pedal edema Neurological exam: PRESENT: alert, awake, oriented to person, oriented to place, oriented to time, oriented to situation, CN II-XII grossly intact. ABSENT: motor sensory deficit Psychiatric exam: PRESENT: appropriate affect, normal mood. ABSENT: homicidal ideation, suicidal ideation Results Laboratory Results: 04/28/19 12:57 04/28/19 12:57 04/28/19 04/28/19 04/29/19 12:57 12:57 05:47 WBC 7.4 RBC 2.91 L Hgb 8.9 L Hct 26.9 L MCV 93 MCH 30.7 MCHC 33.2 RDW 19.3 H Plt Count 386 Sodium 131.3 L Potassium 4.6 Chloride 94 L Carbon Dioxide 29 Anion Gap 8 BUN 14 Creatinine 0.88 Est GFR ( Amer) > 60 Est GFR (Non-Af Amer) > 60 Glucose 211 H Calcium 9.2 Magnesium 1.5 L Impressions: Chest X-Ray 04/19/19 16:10 IMPRESSION: Diffuse airspace opacity at the right lung with masslike consolidation at the right upper lobe and mediastinal shift to the right. Left lung nodules. Small right pleural effusion. CT thorax can help in further evaluation. Head CT 04/26/19 00:00 IMPRESSION: SURGICAL CHANGES WITH OCCIPITAL CRANIECTOMY. TINY BUBBLES OF GAS IN THE FRONTAL HORNS OF THE LATERAL VENTRICLES PRESUMABLY RELATED TO SURGERY. NO OTHER SIGNIFICANT OR ACUTE FINDINGS. EVIDENCE OF ACUTE STROKE: NO. Abdomen/Pelvis CT 04/27/19 11:00 IMPRESSION: 1. CONTINUED MILD SMALL BOWEL DILATION THROUGHOUT THE ABDOMEN. MAY BE DUE TO ILEUS. MECHANICAL OBSTRUCTION LESS LIKELY. IF THERE IS SUSPICION OF MECHANICAL OBSTRUCTION, MAY CONSIDER FOLLOW-UP STUDY WITH ORAL CONTRAST. 2. SMALL LYTIC LESION IN THE LEFT SIDE OF THE T10 VERTEBRAL BODY. ALSO SEEN ON THE PRIOR STUDY. PROBABLE BENIGN SCLEROTIC LESION IN THE LEFT ACETABULUM. 3. NO OTHER SIGNIFICANT OR ACUTE FINDING IN THE ABDOMEN OR PELVIS ON CT SCAN WITH IV CONTRAST. Chest/Abdomen CTA 04/27/19 11:00 IMPRESSION: 1. 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 2. EXTENSIVE DENSE MASSLIKE CONSOLIDATION IN THE RIGHT UPPER LOBE. MODERATE RIGHT PLEURAL EFFUSION. NUMEROUS BILATERAL PULMONARY NODULES. 3. LYTIC LESION IN THE LEFT SIDE OF THE T10 VERTEBRAL BODY. 4. NO SIGNIFICANT CHANGE IN THE ABOVE FINDINGS FROM THE PREVIOUS STUDY. Assessment and Plan - Diagnosis (1) Pulmonary embolism Qualifiers: Pulmonary embolism type: other Chronicity: unspecified Acute cor pulmonale presence: without acute cor pulmonale Qualified Code(s): I26.99 - Other pulmonary embolism without acute cor pulmonale Is this a current diagnosis for this admission?: Yes Plan: Patient has been placed on a heparin protocol for pulmonary embolism. 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 Patient was previously on Xarelto for treatment of a right arm DVT. Patient reports that he stopped the Xarelto approximately 1 week prior to admission due to development of hemoptysis. He does have an IVC filter in place. Attempted to contact the patient's established oncologist, Dr. Batista. Unfortunately calls were not returned either day messages were left. Discussed with Dr. Hylton; have resumed the patient's previous Xarelto therapy. Heparin drip is discontinued. Have resumed Xarelto. 04/28/2019-Xarelto has been resumed. Continue to follow. 04/29/2019-patient continues on Xarelto. (2) Pneumonia Qualifiers: Laterality: right Lung location: unspecified part of lung Is this a current diagnosis for this admission?: Yes Plan: patient doesn't have an elevated temperature, no elevation of WBC, his hemoptysis has resolved. He does have occasional productive cough for yellowish sputum. His lungs are clear to auscultation. His pneumonia is resolving. His blood cultures had no growth x 72 hours. He completed course of antibiotic therapy. No signs of recurrent pneumonia 04/28/2019-no growth on blood cultures. Patient completed antibiotic course. Patient seems to be cleared at this time. 04/29/2019-continues no growth on blood cultures. Patient has complete antibiotic course cleared at this time. (3) Hypokalemia Is this a current diagnosis for this admission?: Yes Plan: Please and monitor. 04/28/2019-stable at this time continue to follow patient is getting replacement potassium. BMP in the a.m. 04/29/2019-stable at this time. Continue BMPs and potassium replacement. (4) Hypomagnesemia Is this a current diagnosis for this admission?: Yes Plan: These is 1.0 today. Will replete with 4 g IV and start him on magnesium oxide 400 mg twice daily. 04/28/2019-magnesium 1.4 this a.m. We will give 1 g IV magnesium in addition to his oral replacement at this time. Repeat magnesium level in a.m. 04/29/2019-magnesium 1.5 this a.m. We will give 2 g IV magnesium in addition to her oral replacement at this time. Repeat mag level in a.m. (5) Diabetes mellitus type 2 in nonobese Is this a current diagnosis for this admission?: Yes Plan: A1c is 6.5%. He is placed on a consistent carb/cardiac diet. Continue Lantus 5 units twice daily and sliding scale coverage. Hypoglycemia protocol is in place. 04/28/2019-A1c 6.5. Continue current insulin coverage. May change plan of care based on patient needs. 04/29/2019-remained stable. Continue coverage. (6) Essential hypertension Is this a current diagnosis for this admission?: Yes Plan: Patient endorses a history of hypertension; hypertension today. Consistent carb/cardiac diet. Discontinued carvedilol and started on Toprol 50 mg twice daily for improved blood pressure and heart rate control. 04/28/2019-improved. Continue to follow. Continue blood pressure medications as ordered. 04/29/2019-stable. Continue current blood pressure medication regimen. - Time Time Spent with patient: 15-24 minutes - Inpatient Certification Medical Necessity: Other - Chemotherapy, pain management.
[2019-04-29] MEDS: METOPROLOL TARTRATE 50 MG TABLET PO SCH ×2 (11:15→21:59)
[2019-04-29] MEDS: POTASSIUM CHLORIDE 20 MEQ PACKET PO SCH ×3 (11:15→18:56)
[2019-04-29] MEDS: MAGNESIUM OXIDE 400 MG TABLET PO SCH ×3 (11:15→18:53)
[2019-04-29] MEDS: LACTOBACILLUS ACIDOPHILUS 250 MG TAB PO SCH ×2 (11:15→18:54)
[2019-04-29] MEDS: MORPHINE SULFATE SR 30 MG TABLET PO SCH ×2 (11:15→22:00)
[2019-04-29] MEDS: MAGNESIUM SULFATE/D5W 1 GM/100 ML RTUPB IV SCH ×2 (11:17→14:44)
[2019-04-29] MEDS: INSULIN GLARGINE,HUM.REC.ANLOG 1,000 UNIT/10 ML VIAL SUBCUT SCH ×2 (12:00→22:01)
[2019-04-29 12:31] LABS: ANION GAP 7 (5-19); BLOOD UREA NITROGEN 12 mg/dL (7-20); CALCIUM 8.7 mg/dL (8.4-10.2); CARBON DIOXIDE 31 mmol/L (22-30); CHLORIDE 93 mmol/L (98-107); GLUCOSE 142 mg/dL (75-110); POTASSIUM 4.5 mmol/L (3.6-5.0)
[2019-04-29 12:33] LABS: HEMATOCRIT 30.4 % (37.9-51.0); MEAN CORPUSCULAR HEMOGLOBIN 30.4 pg (27.0-33.4); MEAN CORPUSCULAR HGB CONC 32.8 g/dL (32.0-36.0); MEAN CORPUSCULAR VOLUME 93 fl (80-97); PLATELET COUNT 404 10^3/uL (150-450); RED BLOOD COUNT 3.28 10^6/uL (4.35-5.55); RED CELL DISTRIBUTION WIDTH 19.2 % (11.5-14.0); WHITE BLOOD COUNT 6.7 10^3/uL (4.0-10.5)
[2019-04-29] MEDS: DOCUSATE SODIUM 100 MG CAPSULE PO SCH ×2 (14:22→18:52)
[2019-04-29] MEDS: ONDANSETRON HCL INJ/PF 4 MG/2 ML SDV IV PRN (14:24)
[2019-04-29] MEDS ORDERED: MAGNESIUM SULFATE/D5W 1 GM/100 ML RTUPB IV ONE (14:41)
[2019-04-29] MEDS: RIVAROXABAN 10 MG TABLET PO SCH (18:53)
[2019-04-30] MEDS: OXYCODONE HCL IR 5 MG TABLET PO PRN ×2 (04:06→11:07)
[2019-04-30] MEDS: AMOXICILLIN TR/POT CLAVULANATE 500-125 MG TAB PO SCH ×2 (06:33→13:40)
[2019-04-30] MEDS: INSULIN LISPRO 100 UNIT/ML 3 ML VIAL SUBCUT SCH ×2 (08:28→12:06)
[2019-04-30] MEDS: POTASSIUM CHLORIDE 20 MEQ PACKET PO SCH ×2 (09:13)
[2019-04-30] MEDS: INSULIN GLARGINE,HUM.REC.ANLOG 1,000 UNIT/10 ML VIAL SUBCUT SCH (09:19)
[2019-04-30] MEDS: PREDNISONE 10 MG TABLET PO SCH (09:20)
[2019-04-30] MEDS: LACTOBACILLUS ACIDOPHILUS 250 MG TAB PO SCH (09:20)
[2019-04-30] MEDS: DOCUSATE SODIUM 100 MG CAPSULE PO SCH (09:20)
[2019-04-30] MEDS: MORPHINE SULFATE SR 30 MG TABLET PO SCH (09:20)
[2019-04-30] MEDS: METOPROLOL TARTRATE 50 MG TABLET PO SCH (09:21)
[2019-04-30] MEDS: MAGNESIUM OXIDE 400 MG TABLET PO SCH ×2 (09:21→13:40)
[2019-04-30 09:54] LABS: HEMATOCRIT 25.8 % (37.9-51.0); HEMOGLOBIN 8.7 g/dL (13.5-17.0); MEAN CORPUSCULAR HGB CONC 33.8 g/dL (32.0-36.0); MEAN CORPUSCULAR VOLUME 92 fl (80-97); PLATELET COUNT 372 10^3/uL (150-450); RED BLOOD COUNT 2.81 10^6/uL (4.35-5.55); RED CELL DISTRIBUTION WIDTH 19.2 % (11.5-14.0); WHITE BLOOD COUNT 5.3 10^3/uL (4.0-10.5)
[2019-04-30 10:10] LABS: ANION GAP 8 (5-19); BLOOD UREA NITROGEN 10 mg/dL (7-20); CARBON DIOXIDE 29 mmol/L (22-30); CHLORIDE 95 mmol/L (98-107); GLUCOSE 157 mg/dL (75-110); POTASSIUM 4.1 mmol/L (3.6-5.0)
--- NOTE | 2019-04-30 10:13 | PDOC DISCHARGE SUMMARY ---
General - Admit/Disc Date/PCP Admission Date/Primary Care Provider: 04/19/19 20:02 No primary care Discharge Date: 04/30/19 - Discharge Diagnosis (1) Pulmonary embolism Is this a current diagnosis for this admission?: Yes (2) Pneumonia Is this a current diagnosis for this admission?: Yes (3) Hypokalemia Is this a current diagnosis for this admission?: Yes (4) Hypomagnesemia Is this a current diagnosis for this admission?: Yes (5) Diabetes mellitus type 2 in nonobese Is this a current diagnosis for this admission?: Yes (6) Essential hypertension Is this a current diagnosis for this admission?: Yes - Additional Information Resuscitation Status: Full Code Discharge Diet: As Tolerated Discharge Activity: Activity As Tolerated Home Medications: Furosemide [Lasix 20 mg Tablet] 40 mg PO DAILYP PRN 04/20/19 Insulin Glargine,Hum.rec.anlog [Lantus Insulin 100 Unit/1 ml 10 ml] 8 unit SQ QAM 04/20/19 Insulin Lispro [Humalog Insulin (Lispro) 100 unit/mL] 7 units SQ MEALS 04/20/19 Oxycodone HCl 20 mg PO Q6HP PRN 04/20/19 Prednisone [Deltasone 10 mg Tablet] 10 mg PO [id number] 04/20/19 Rivaroxaban [Xarelto] 20 mg PO WSUPPER 04/20/19 History of Present Illness Patient complains of: No complaints this a.m. History of Present Illness: WARREN MARIANO JR is a 44 year old male Hospital Course Hospital Course: Mr. Mariano is a 44-year-old gentleman who presented to the ER on 04/19/2019 with a 2-day history of diarrhea. Patient states that time it was moderate to severe in frequency and it lasted for 2 days associated with diffuse moderate to severe abdominal pain. Patient also states he had accompanying symptoms of nausea but denies any vomiting or other associated symptoms. Patient does have history of lung cancer with known metastasis. He was also recently been treated for a approximately DVT on Xarelto but been taken off of it previously for hemoptysis. In the emergency room he is found to have a normal white count, and a normal lactic acid and a potassium of 2.8 with a mildly elevated temperature and associated tachycardia. He was evaluated for diarrhea and had a CT of the abdomen pelvis which was diagnostic consistent with enterocolitis. He also had a chest x-ray showed right upper lobe infiltrate which was most likely a tumor but could have been associated pneumonia. A CT of the chest was obtained and showed pulmonary embolism in his right pulmonary artery. Patient was admitted and initially treated for his hypokalemia, pulmonary embolism and acute enteritis. Patient was restarted on Xarelto with no complications. No further bouts of hemoptysis at this time. Patient does have a severe tobacco abuse disorder and at 44 has severe clubbing in his hands. Patient is been educated for smoking cessation. Patient also followed by Dr. Perdomo, oncology, and will follow up on an outpatient basis for further chemotherapy. Patient has improved at this time significant weight to return home today. Patient will follow-up with [facility] [place] as well as Dr. Hylton on discharge. Patient will continue all current home medication with no new prescriptions given at this time. 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 Physical Exam Vital Signs: Temp Pulse Resp BP Pulse Ox 98.8 F 114 H 17 115/67 95 04/30/19 07:30 04/30/19 07:30 04/30/19 07:30 04/30/19 07:30 04/30/19 07:30 Intake & Output 04/29/19 04/30/19 05/01/19 06:59 06:59 06:59 Intake Total 2137 1706 Output Total 645 Balance 2137 1061 Weight 72.5 kg 72.6 kg General appearance: PRESENT: no acute distress, well-developed, well-nourished Neck exam: ABSENT: carotid bruit, JVD, lymphadenopathy, thyromegaly Respiratory exam: PRESENT: clear to auscultation emily. ABSENT: rales, rhonchi, wheezes Cardiovascular exam: PRESENT: RRR. ABSENT: diastolic murmur, rubs, systolic murmur Pulses: PRESENT: normal dorsalis pedis pul Vascular exam: PRESENT: normal capillary refill GI/Abdominal exam: PRESENT: normal bowel sounds, soft. ABSENT: distended, guarding, mass, organolmegaly, rebound, tenderness Extremities exam: PRESENT: full ROM. ABSENT: calf tenderness, clubbing, pedal edema Neurological exam: PRESENT: alert, awake, oriented to person, oriented to place, oriented to time, oriented to situation, CN II-XII grossly intact. ABSENT: motor sensory deficit Psychiatric exam: PRESENT: appropriate affect, normal mood. ABSENT: homicidal ideation, suicidal ideation Skin exam: PRESENT: dry, intact, warm. ABSENT: cyanosis, rash Results Laboratory Results: 04/30/19 09:36 04/29/19 04/29/19 04/29/19 05:47 09:53 09:53 WBC 6.7 RBC 3.28 L Hgb 10.0 L Hct 30.4 L MCV 93 MCH 30.4 MCHC 32.8 RDW 19.2 H Plt Count 404 Sodium 131.2 L Potassium 4.5 Chloride 93 L Carbon Dioxide 31 H Anion Gap 7 BUN 12 Creatinine 0.91 Est GFR ( Amer) > 60 Est GFR (Non-Af Amer) > 60 Glucose 142 H Calcium 8.7 Magnesium 1.4 L 04/30/19 09:36 WBC 5.3 RBC 2.81 L Hgb 8.7 L Hct 25.8 L MCV 92 MCH 31.0 MCHC 33.8 RDW 19.2 H Plt Count 372 Sodium Potassium Chloride Carbon Dioxide Anion Gap BUN Creatinine Est GFR ( Amer) Est GFR (Non-Af Amer) Glucose Calcium Magnesium Impressions: Chest X-Ray 04/19/19 16:10 IMPRESSION: Diffuse airspace opacity at the right lung with masslike consolidation at the right upper lobe and mediastinal shift to the right. Left lung nodules. Small right pleural effusion. CT thorax can help in further evaluation. Head CT 04/26/19 00:00 IMPRESSION: SURGICAL CHANGES WITH OCCIPITAL CRANIECTOMY. TINY BUBBLES OF GAS IN THE FRONTAL HORNS OF THE LATERAL VENTRICLES PRESUMABLY RELATED TO SURGERY. NO OTHER SIGNIFICANT OR ACUTE FINDINGS. EVIDENCE OF ACUTE STROKE: NO. Abdomen/Pelvis CT 04/27/19 11:00 IMPRESSION: 1. CONTINUED MILD SMALL BOWEL DILATION THROUGHOUT THE ABDOMEN. MAY BE DUE TO ILEUS. MECHANICAL OBSTRUCTION LESS LIKELY. IF THERE IS SUSPICION OF MECHANICAL OBSTRUCTION, MAY CONSIDER FOLLOW-UP STUDY WITH ORAL CONTRAST. 2. SMALL LYTIC LESION IN THE LEFT SIDE OF THE T10 VERTEBRAL BODY. ALSO SEEN ON THE PRIOR STUDY. PROBABLE BENIGN SCLEROTIC LESION IN THE LEFT ACETABULUM. 3. NO OTHER SIGNIFICANT OR ACUTE FINDING IN THE ABDOMEN OR PELVIS ON CT SCAN WITH IV CONTRAST. Chest/Abdomen CTA 04/27/19 11:00 IMPRESSION: 1. 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 2. EXTENSIVE DENSE MASSLIKE CONSOLIDATION IN THE RIGHT UPPER LOBE. MODERATE RIGHT PLEURAL EFFUSION. NUMEROUS BILATERAL PULMONARY NODULES. 3. LYTIC LESION IN THE LEFT SIDE OF THE T10 VERTEBRAL BODY. 4. NO SIGNIFICANT CHANGE IN THE ABOVE FINDINGS FROM THE PREVIOUS STUDY. Qualifiers - * PATIENT BEING DISCHARGED WITH ANY OF THE FOLLOWING DIAGNOSIS: No Acute Heart Failure - Is this a Heart Failure Patient?: No Plan Time Spent: Greater than 30 Minutes
--- NOTE | 2019-04-30 10:15 | ADVANCED CARE ---
- Diagnosis (1) Pulmonary embolism Diagnosis Current: Yes (2) Pneumonia Diagnosis Current: Yes (3) Hypokalemia Diagnosis Current: Yes (4) Hypomagnesemia Diagnosis Current: Yes (5) Diabetes mellitus type 2 in nonobese Diagnosis Current: Yes (6) Essential hypertension Diagnosis Current: Yes Attendance: Patient and myself Resuscitation Status: Full Code Discussion: Plan of care on discharge including follow-up with Dr. Hylton and community [facility] in [place]. Patient educated to perform as much physical activity can to return back to previous physical strength. Care Planning Goals: 1-follow-up Dr. altman 2-follow-up [facility] 3-resume all home meds including Xarelto. Time Spent: 15 minutes
[2019-04-30 16:11] VITALS: BP 101/58
== END 2019-04-30 17:37 | disposition home or self-care (01) | DRG 391 ==
LOC: ER 15:57 → EH 20:02 → 3W 23:18 → 4S 04-29 21:30
PROVIDERS: ADMIT Emergency Medicine; ATTEND Emergency Medicine
PROC: 30233N1 Transfusion of Nonautologous Red Blood Cells into Peripheral Vein, Percutaneous Approach (ICD-10-PCS; principal; 2019-04-22)
DX: K52.9 Noninfective gastroenteritis and colitis, unspecified (principal); I26.99 Other pulmonary embolism without acute cor pulmonale; C34.90 Malignant neoplasm of unspecified part of unspecified bronchus or lung; R04.2 Hemoptysis; C79.51 Secondary malignant neoplasm of bone; E87.6 Hypokalemia; E83.42 Hypomagnesemia; E86.0 Dehydration; E83.52 Hypercalcemia; D63.0 Anemia in neoplastic disease; F17.200 Nicotine dependence, unspecified, uncomplicated; E11.9 Type 2 diabetes mellitus without complications; I10 Essential (primary) hypertension; Z79.4 Long term (current) use of insulin; R68.3 Clubbing of fingers; N62 Hypertrophy of breast; Z86.718 Personal history of other venous thrombosis and embolism; Z79.02 Long term (current) use of antithrombotics/antiplatelets; Z79.899 Other long term (current) drug therapy; Z90.49 Acquired absence of other specified parts of digestive tract; Z92.25 Personal history of immunosuppression therapy
CPT/HCPCS: 36415; 36430; 70450; 71045; 71275; 74177; 80048; 80053; 80061; 80202; 81001; 82272; 82803; 82962; 83036; 83605; 83690; 83735; 84100; 84439; 84443; 84481; 85025; 85027; 85610; 85730; 86850; 86900; 86901; 86920; 87040; 87045; 87070; 87077; 87086; 87205; 87493; 89055; 93005; 93010; 94640; 94667; 94799; 96361; 96374; 96375; 99291; J0456; J0500; J1644; J1815; J1940; J2405; J2543; J3370; J3475; J3480; J3489; J3490; J7030; J7050; J7060; J7512; J7614; P9016; S0164